=== PATIENT | male | born 1955 | race Caucasian/White ===

== ENCOUNTER 2018-09-25 07:59 | Outpatient (CLI) | payer OTHER, SELFPAY ==
[2018-09-25 09:17] LABS: Anion Gap 8.8 mmol/L (3-11); BUN 19 mg/dL (7-18); CO2 28.2 mmol/L (21.0-32.0); CREATININE 1.13 mg/dL (0.70-1.30); Calcium 9.5 mg/dL (8.5-10.1); Chloride 103 mmol/L (98-107); Glucose 110 mg/dL (70-100); Potassium 4.1 mmol/L (3.5-5.1); Sodium 140 mmol/L (136-145)
== END 2018-09-25 08:19 ==
PROVIDERS: PCP Family Medicine; Visit Provider Family Medicine
DX: I10 Essential (primary) hypertension (principal)
CPT/HCPCS: 36415; 80048

== ENCOUNTER 2019-11-24 10:49 | Outpatient (CLI) | payer MEDICARE, OTHER, SELFPAY ==
--- NOTE | 2019-11-24 13:30 | DI.RAD_ITS ---
EXAM: XR KNEE LT 3V AP,LAT,QING CLINICAL HISTORY: left knee pain, M25.562. TECHNIQUE: 2D digital imaging was performed. COMPARISON: No exams were available for comparison FINDINGS: There is marked narrowing of the medial femoral tibial joint and mild narrowing of the patellofemoral joint marginal osteophytes are seen in all 3 joint compartments. The bones are intact and normally mineralized. Vascular calcifications are seen in the soft tissues. The soft tissues are otherwise u nremarkable. No joint effusion is present. IMPRESSION: Marked osteoarthritis of the left knee. DATA REPOSITORY: RADIATION DOSE DELIVERED:
== END 2019-11-24 11:09 ==
PROVIDERS: PCP Nurse Practitioner; Visit Provider Family Medicine
DX: M25.562 Pain in left knee (principal); M17.12 Unilateral primary osteoarthritis, left knee
CPT/HCPCS: 73562

== ENCOUNTER 2019-12-06 01:44 | Outpatient (CLI) | payer MEDICARE, OTHER, SELFPAY ==
[2019-12-06 08:28] LABS: Anion Gap 8.6 mmol/L (3-11); BUN 21 mg/dL (7-18); CO2 28.4 mmol/L (21.0-32.0); CREATININE 1.08 mg/dL (0.70-1.30); Chloride 106 mmol/L (98-107); Glucose 104 mg/dL (74-106); Potassium 4.2 mmol/L (3.5-5.1); Sodium 143 mmol/L (136-145)
== END 2019-12-06 02:04 ==
PROVIDERS: PCP Nurse Practitioner; Visit Provider Family Medicine
DX: I10 Essential (primary) hypertension (principal)
CPT/HCPCS: 36415; 80048

== ENCOUNTER → 2019-12-23 10:28 | Outpatient (BNVA) | payer MEDICARE, OTHER, SELFPAY | PROVIDERS: PCP Nurse Practitioner; Referring Provider Nurse Practitioner; Visit Provider Student in an Organized Health Care Education/Training Program | DX: M25.562 Pain in left knee (principal); M17.12 Unilateral primary osteoarthritis, left knee | CPT/HCPCS: 20610; 99203; J1040 ==

== ENCOUNTER → 2020-03-16 08:59 | Outpatient (BNVA) | payer MEDICARE, OTHER, SELFPAY | PROVIDERS: PCP Nurse Practitioner; Referring Provider Nurse Practitioner; Visit Provider Student in an Organized Health Care Education/Training Program | DX: M17.12 Unilateral primary osteoarthritis, left knee (principal); I10 Essential (primary) hypertension | CPT/HCPCS: 20610; 99213; J1040 ==

== ENCOUNTER 2020-09-25 10:44 | Outpatient (CLI) | payer MEDICARE, OTHER, SELFPAY ==
--- NOTE | 2020-09-25 09:00 | DI.RAD_ITS ---
Exam(s) XR KNEE LT 1V XR STANDING ALIGNMENT EXAM: XR STANDING ALIGNMENT CLINICAL HISTORY: preop. TECHNIQUE: 2D digital imaging was performed. COMPARISON: CR XR KNEE LT 3V AP,LAT,QING from 11/24/2019 FINDINGS: Hips are well maintained. In the right knee mild degenerative changes are present with joint space n arrowing and periarticular spurring most marked in the medial joint compartment. In the left knee, t here are degenerative changes present with joint space narrowing and periarticular spurring. The fin dings are most marked in the medial femoral tibial and patellofemoral joints. The bones are intact a nd normally mineralized. There is a small joint effusion. Vascular calcifications are present. The ankles are well maintained. The right lower extremity measures 93.9 cm. The left lower extremity m easures 95.7 cm. IMPRESSION: Osteoarthritis of the knees. DATA REPOSITORY: RADIATION DOSE DELIVERED:
== END 2020-09-25 10:45 | disposition home or self-care (01) ==
LOC: DIORS 10:44
PROVIDERS: PCP Nurse Practitioner; Referring Provider Nurse Practitioner; Visit Provider Student in an Organized Health Care Education/Training Program
DX: M17.12 Unilateral primary osteoarthritis, left knee (principal)
CPT/HCPCS: 99213; 73560; 77073

== ENCOUNTER → 2020-10-05 09:58 | Outpatient (BNVA) | payer MEDICARE, OTHER, SELFPAY | PROVIDERS: PCP Nurse Practitioner; Referring Provider Nurse Practitioner; Visit Provider Physician Assistant | DX: Z01.818 Encounter for other preprocedural examination (principal); M17.12 Unilateral primary osteoarthritis, left knee ==

== ENCOUNTER 2020-10-30 03:58 | Outpatient (CLI) | payer MEDICARE, OTHER, SELFPAY ==
[2020-10-30 11:04] LABS: Source Nasal/Nares
[2020-10-30 15:09] LABS: COVID-19 PCR Negative (Negative)
== END 2020-10-30 03:59 | disposition home or self-care (01) ==
LOC: LBO 03:58
PROVIDERS: PCP Nurse Practitioner; Visit Provider Student in an Organized Health Care Education/Training Program
DX: Z20.822 Contact with and (suspected) exposure to COVID-19 (principal); Z01.818 Encounter for other preprocedural examination
CPT/HCPCS: 87635

== ENCOUNTER 2020-10-30 04:39 | Outpatient (CLI) | payer MEDICARE, OTHER, SELFPAY ==
[2020-10-30 09:54] LABS: HCT 44.4 % (40.0-50.0); HGB 15.2 g/dL (13.5-17.5); MCH 32.2 pg (27.0-33.0); MCHC 34.2 % (32.0-36.0); MCV 94.1 fL (80-95); MPV 10.3 fL (8.0-11.0); Platelet Count 202 10^3/uL (130-400); RBC 4.72 10^6/uL (4.36-5.78); RDW 12.2 % (11.8-14.1); RDW-SD 42.5 fL; WBC 8.05 10^3/uL (4.4-10.8)
[2020-10-30 09:57] LABS: Hemoglobin A1C 5.7 % (<5.7)
[2020-10-30 10:43] LABS: Anion Gap 9.3 mmol/L (3-11); BUN 23 mg/dL (7-18); CO2 29.7 mmol/L (21.0-32.0); CREATININE 1.1 mg/dL (0.70-1.30); Calcium 9.2 mg/dL (8.5-10.1); Chloride 105 mmol/L (98-107); Glucose 137 mg/dL (74-106); Potassium 3.6 mmol/L (3.5-5.1); Sodium 144 mmol/L (136-145)
== END 2020-10-30 04:40 | disposition home or self-care (01) ==
LOC: LBO 04:39
PROVIDERS: PCP Nurse Practitioner; Visit Provider Student in an Organized Health Care Education/Training Program
DX: M25.562 Pain in left knee (principal); M17.12 Unilateral primary osteoarthritis, left knee; R73.09 Other abnormal glucose; Z01.818 Encounter for other preprocedural examination; Z01.812 Encounter for preprocedural laboratory examination
CPT/HCPCS: 36415; 80048; 85027; 87635; 83036

== ENCOUNTER 2020-11-01 11:04 | Observation (INO) | payer MEDICARE, OTHER, SELFPAY ==
[2020-11-01] VITALS (17 sets, daily range): BP systolic 99–146; BP diastolic 39–79; PULSE 66–81; RESP 16–24; TEMP 36.1–37.5; O2SAT 89–94; BMI 49.1
--- NOTE | 2020-11-01 | DI.RAD_ITS ---
Exam(s) XR PORTABLE CHEST AP EXAM: XR PORTABLE CHEST AP CLINICAL HISTORY: potential aspiration. TECHNIQUE: 2D digital imaging was performed. COMPARISON: No exams were available for comparison FINDINGS: MEDIASTINUM: Normal. HEART: Normal. PULMONARY VASCULATURE: Normal. LUNGS: Question of increased lung markings in the left lung base. This may represent atelectasis or pneumonia. The lungs are otherwise clear. PLEURAL SPACE: No pleural effusion or pneumothorax. BONE:Within normal limits for the patient's age. OTHER FINDINGS:Normal. IMPRESSION: Question of a left basilar infiltrate. DATA REPOSITORY: RADIATION DOSE DELIVERED:
[2020-11-01] MEDS: Gabapentin 300 MG CAP PO ×2 (06:25→22:02)
[2020-11-01] MEDS: Acetaminophen 500 MG TAB 1000 MG PO ×3 (06:25→19:43)
[2020-11-01] MEDS: Celecoxib 200 MG CAP 400 MG PO (06:25)
[2020-11-01] MEDS: Lactated Ringers 1,000 ML 80 ML IV ×2 (06:26→11:05)
--- NOTE | 2020-11-01 06:51 | W.ANESPRE ---
General Info Date of Service Date Performed: 11/01/20 Height: 5 ft 11 in Weight: 160 kg Body Mass Index (BMI): 49.1 Surgical Procedure: Operation Date: 11/01/20 07:40 Proposed Procedures Side Surgeon p Knee Total Arthroplasty Left Emanuel Dang MD Meds Allergies and Home Medications Allergies Allergy/AdvReac Type Severity Reaction Status Date / Time No Known Allergies Allergy Verified 11/01/20 05:50 Home Medication Medication Instructions Recorded tamsulosin 0.4 mg capsule 0.8 mg PO HS #180 tab-cap 12/06/19 nystatin 100,000 unit/gram topical 1 applic TOPICAL BID #60 g 03/06/20 powder triamcinolone acetonide 0.1 % 1 applic TOPICAL BID #453.6 g 03/16/20 topical cream chlorthalidone 25 mg tablet 25 mg PO DAILY #90 tab-cap 06/08/20 losartan 100 mg tablet 100 mg PO DAILY #90 tab-cap 06/08/20 nifedipine 30 mg tablet,extended 30 mg PO DAILY #90 tab-cap 06/08/20 release 24 hr simvastatin 40 mg tablet 40 mg PO DAILY #90 tab-cap 06/08/20 Current Visit Medications: Current Medications Generic Name Dose Route Start Last Admin Trade Name Freq PRN Reason Stop Dose Admin Acetaminophen 1,000 mg 11/01/20 06:00 11/01/20 06:25 Acetaminophen 500 Mg Tab PO 11/01/20 16:00 1,000 mg PREOP ESAU Administration Celecoxib 400 mg 11/01/20 06:00 11/01/20 06:25 Celecoxib 200 Mg Cap PO 11/01/20 16:00 400 mg PREOP ESAU Administration Gabapentin 300 mg 11/01/20 06:00 11/01/20 06:25 Gabapentin 300 Mg Cap PO 11/01/20 16:00 300 mg PREOP ESAU Administration Tranexamic Acid 1,000 mg/ 60 mls @ 360 mls/hr 11/01/20 06:00 Sodium Chloride IVPB 11/01/20 16:00 PREOP ESAU Tranexamic Acid 1,000 mg/ 60 mls @ 360 mls/hr 11/01/20 06:00 Sodium Chloride IVPB 11/01/20 16:00 DIRECTED ESAU Ringer's Solution 1,000 mls @ 80 mls/hr 11/01/20 06:00 11/01/20 06:26 IV 11/30/20 23:59 80 mls/hr INFUSION ESAU Administration Cefazolin Sodium 3,000 mg/ 100 mls @ 200 mls/hr 11/01/20 06:00 Sodium Chloride IVPB 11/01/20 23:59 PREOP ESAU IV Miscellaneous Supplies 1 each 11/01/20 06:00 Iv Access IV 11/30/20 23:59 DIRECTED ESAU Sodium Chloride 0 ml 11/01/20 06:00 Normal Saline Flush 10 Ml Syr IV 11/30/20 23:59 PRN PRN Sodium Chloride 0 ml 11/01/20 06:00 Normal Saline 10 Ml Vial IJ 11/30/20 23:59 DIRECTED PRN Sterile Water 0 ml 11/01/20 06:00 Water,Injection,Sterile 10 Ml Vial IJ 11/30/20 23:59 DIRECTED PRN PFSH Active Problems Active Problems: Problem Status Onset Code Left knee DJD M17.12 Polyp of colon K63.5 Psoriasis L40.9 Morbid obesity E66.01 Hypercholesterolemia E78.00 Essential hypertension I10 BPH w urinary obs/LUTS 10/24/17 N40.1, N13.8 Medical History Medical History HTN (hypertension) Left knee DJD Injection: 12/23/19, 03/16/2020 Obesity Surgical History Surgical History Cholecystectomy (08/28/07) Colonoscopy - MAC (09/23/16) 07/22/08 05/05/13 Excision, Lipoma (07/12/09) deep left gluteus Repair of umbilical hernia 08/28/2007 & 09/04/2009 Tobacco Smoking/Tobacco Use Status: Never Second hand exposure: No Alcohol Alcohol Intake: current Alcohol intake frequency: a few times a week Substance Use Substance use: Never Substance use type: does not use Vital Signs and Lab Results Vital Signs Most Recent Vital Signs in EMR: Most Recent Vital Signs Temp Pulse Resp BP Pulse Ox 36.7 C 66 18 125/68 94 11/01/20 06:00 11/01/20 06:00 11/01/20 06:00 11/01/20 06:00 11/01/20 06:00 Lab Results Blood Type / Crossmatch: No Data to Display Complete Blood Count: White Blood Count 8.05 10^3/uL (4.4-10.8) 10/30/20 09:40 10/30/20 Red Blood Count 4.72 10^6/uL (4.36-5.78) 10/30/20 09:40 10/30/20 Hemoglobin 15.2 g/dL (13.5-17.5) 10/30/20 09:40 10/30/20 Hematocrit 44.4 % (40.0-50.0) 10/30/20 09:40 10/30/20 Platelet Count 202 10^3/uL (130-400) 10/30/20 09:40 10/30/20 Complete Metabolic Panel: Sodium Level 144 mmol/L (136-145) 10/30/20 09:40 10/30/20 Potassium Level 3.6 mmol/L (3.5-5.1) 10/30/20 09:40 10/30/20 Chloride Level 105 mmol/L (98-107) 10/30/20 09:40 10/30/20 Carbon Dioxide Level 29.7 mmol/L (21.0-32.0) 10/30/20 09:40 10/30/20 Blood Urea Nitrogen 23 mg/dL (7-18) H 10/30/20 09:40 10/30/20 Creatinine 1.1 mg/dL (0.70-1.30) 10/30/20 09:40 10/30/20 Calcium Level 9.2 mg/dL (8.5-10.1) 10/30/20 09:40 10/30/20 Glucose Level 137 mg/dL (74-106) H 10/30/20 09:40 10/30/20 Hemoglobin A1c 5.7 % (<5.7) 10/30/20 09:40 10/30/20 Liver Function Panel: No Data to Display Coagulation Panel: No Data to Display Cardiac Panel: No Data to Display Arterial Blood Gas: No Data to Display Venous Blood Gas: No Data to Display Pancreas Panel: No Data to Display Thyroid Panel: No Data to Display Infectious Disease: Coronavirus (COVID-19)(PCR) Negative (Negative) 10/30/20 09:55 10/30/20 Coronavirus 2019 Source Nasal/nares 10/30/20 09:55 10/30/20 Blood Cultures: No Data to Display Toxicology Panel: No Data to Display Anesthesia Assessment and Plan Anesthesia History Personal History: No History of Anesthesia Complications Family History: No Family History of Anesthesia Complications Exercise Tolerance Exercise Tolerance: Metabolic Equivalents>4 Pertinent Negatives Pertinent Negatives: No Symptoms of GERD, No Major Cardiovascular Symptoms or Complaints, No Major Pulmonary Symptoms or Complaints and No History of CVA/TIA Cardiac & Pulmonary Exam Cardiac Exam: Normal S1/S2 Heart Sounds Pulmonary Exam: Clear Bilateral Breath Sounds Airway Exam Known Difficult Airway: No Mallampati Class: 2 Mouth Opening: Normal (> 3cm) Thyromental Distance: Greater than 3 cm Neck Range of Motion: Limited ROM Neck Circumference: Thick Teeth Condition: Normal Dentition ASA Classification ASA Score: ASA 3 Emergency Case?: No NPO Status NPO Status: NPO Clears >2 hours, Solids >8 hours Anesthesia Plan Resuscitation Status: Full Code Anesthesia Technique: General Anesthesia Airway Planned: Natural Airway Monitors Used: Standard Monitors
[2020-11-01] MEDS: ceFAZolin 3,000 MG in Normal Saline 100 ML 200 MG IVPB (08:20)
--- NOTE | 2020-11-01 09:08 | W.ANESNERVE ---
Nerve Block Single Injection Procedure Date and Time Date Performed: 11/01/20 Procedure Start: 07:22 Location Where Procedure Performed Procedure Location: PACU Reason Performed: Postoperative Analgesia Requesting Provider: Alton Timeout Performed Timeout Performed: Yes Monitoring Used ECG, Blood Pressure, SpO2 and ETCO2 Sterility Sterility: Hand Hygiene, Surgical Cap, Surgical Mask, Sterile Gloves, Eye Protection and Chlorhexidine Sedation Given During Procedure Sedation Given (Indicate Dose Given): Versed IV Dose:: 2 mg Patient Mental Status Patient Mental Status: Sedate with meaningful communication Nerve Block 1st Nerve Block: Laterality: Left Block Type: Adductor Canal Needle / Catheter Used: 100mm SonoPlex II Local Anesthetic Bolus (Indicate Dose Given): Lidocaine used for local infiltration of skin, Injected in 3-5ml increments after negative blood aspiration and Bupivacaine 0.25% Dose:: 20 cc Additives (Indicate Dose Given): None Ultrasound: Sterile probe cover and gel used Ultrasound Image Saved?: Yes Nerve Stimulator: Not Used Paresthesia: None Procedure Tolerated: No Complications and Patient tolerated well Procedure Outcome: Successful Performed By: Kobe
[2020-11-01] MEDS: Bupivacaine 0.25% Pres-Free 30 ML VIAL (09:15)
[2020-11-01] MEDS: Normal Saline 20 ML VIAL (09:16)
[2020-11-01] MEDS: Ketorolac 30 MG/ML VIAL (09:16)
--- NOTE | 2020-11-01 11:04 | ROE_ITS ---
Date of service: 11/01/20 Time of Service: 10:05 Operative Note Operative Note DATE OF PROCEDURE: 11/01/20 PRE-OP DIAGNOSIS: Left Knee Osteoarthritis POST-OP DIAGNOSIS: same PROCEDURE: Left Total Knee Replacement, Super Morbidly Obese SURGEON: Emanuel Dang RESPIRATORY EQUIPMENT ASSISTANT: Cathie Weller ANESTHESIA TYPE: General LMA/ETT Refer to Anesthesia Record ESTIMATED BLOOD LOSS: 200 PATHOLOGY: none sent TOURNIQUET TIME: 0 COMPLICATIONS: Other (Difficult intubation with concern for possible aspiration. Remained stable and was extubated.) Patient was transported to: PACU Patient's condition: stable Implants: 1. Depuy Attune Cementless Cruciate Retaining Femoral Component, Size 7 2. Depuy Attune Cementless Rotating Platform Tibial Component, Size 6 3. Depuy Attune 7x6mm CR/RP Poly 4. Depuy Attune Patellar Component, Size 38 Indications: I have seen Frederic in clinic for symptoms of knee arthritis, confirmed with radiographic findings. Frederic has exhausted nonoperative methods and was having significant limitations in daily function and desired better function and less pain. I discussed the technical details of a knee replacement. I explained the risks of the procedure to include, but not limited to, bleeding, infection, pain, stiffness, fracture, damage to nerves and vessels, damage to muscles and tendons, loosening, need for repeat procedure, blood clot and cardiopulmonary demise. Despite these risks, Frederic elected to proceed. Findings: There was significant signs of arthritis throughout the knee. Procedure Description: Frederic was greeted in the preoperative holding area where the correct side was identified and marked. The consent was reviewed with the patient and signed. The history and physical was updated. All questions were answered. Preoperative medications were administered: Acetaminophen 1000mg, Celebrex 400mg, and Gabapentin 300mg. An adductor canal block was then administered by the anesthesia team in the PACU. Frederic was taken back to the operating room. A spinal anesthestic was attempted but unsuccessful. The patient was placed into the supine position on the operating room table. A general anesthetic was administered. However, there was difficulty with the seating of the LMA so he was switched to an ETT. HOwever, during this process there was some coughing and a concern for potential aspiration with a drop in oxygen saturation. Successful video-assisted intubation was completed and oxygen levels and vitlas remained stable. A nonsterile tourniquet was placed high onto the leg but not used. Posts were placed for positioning during the procedure. All bony prominences were well padded. Prophylactic antibiotics in the form of Cefazolin were administered. 1g of Tranxemic Acid was given intravenously within 30 minutes of incision. The left leg was then prepped with Chloraprep and draped in a standard fashion with impervious stockinette. A second prep with Chloraprep was performed prior to application of Iodine impregnated skin protection. A timeout to confirm correct identity, side and site, procedure, allergies, anesthesia, and medical concerns was performed. With the knee in some flexion, a midline incision was made overlying the knee. Full thickness skin flaps were raised once the extensor mechanism was encountered. These were raised medially and laterally. Any bleeding was controlled with electrocautery. Once the extensor mechanism was fully exposed, a medial parapatellar arthrotomy was performed in a flexed position. All bleeding from the arthrotomy and the geniculate arteries was coagulated. A medial subperiosteal peel was performed with electrocautery to the midcoronal plane. Due to the significant varus deformity the entire medial tibial plateau was exposed. The fat pad was removed while keeping the patellar tendon protected. The anterior distal femur synovium was removed for later visualization. The ACL and PCL were resected and the anterior horn of the lateral meniscus was transected. The knee was then flexed with the patella everted. Large osteophytes from the tibia were removed. Large osteophytes from the femur were removed. Using a step drill, and based on preoperative templating, the femoral canal was entered. This was done with a step drill without any difficulty. The intramedullary distal femoral cut guide was inserted, set to a 5 degree valgus cut and 9mm cut thickness. The distal femoral cut guide was then held in position and pinned. With the soft tissues protected, the distal cut was performed. This was passed over a few times to ensure a planar cut. I then turned attention to the tibia. The extramedullary guide was placed onto the leg. The distal aspect was slid medial to adjust for position of center of ankle and stay in line with shaft of the tibia. Approximately 3-5 degrees of posterior slope was kept in the proximal cutting guide. The center of the guide was aligned with the PCL. The stylus was used to assess cut thickness. The medial side, most involved side, was set for a 3mm cut, corresponding to 8mm laterally. This was then held in position and pinned into place with 2 additional pins and a cross pin for stability. The medial and lateral collateral ligaments were protected and the cut was performed. With this completed, it was assessed and noted to be of appropriate dimensions. The guide was removed. A spacer block was inserted and the knee was brought into extension. The 6mm spacer block provided full extension, without hyperextension and with stability of both the medial and lateral collateral ligaments was assessed. The pins from the femur and the tibia were then removed. The distal femur was then sized. The anterior stylus was placed onto the lateral ridge of the anterior femur. This indicated a size 7 femur. The external rotation of the guide was adjusted to 3 degrees to match the epicondylar axis, perpendicular to Mcintire?s line. The 4-in-1 cutting guide was the placed. The posterior medial femur cut was evaluated and appeared of good thickness. The spacer block was inserted underneath the cutting guide and stability was confirmed in 90 degrees of flexion. An kassie wing was used to confirm appropriate position of the anterior cut to avoid notching. This cutting guide was ensured to be flush on the cut surface and then pinned into place with headed pins. While protecting the soft tissues, quad tendon, and collateral ligaments, the anterior and posterior cuts were performed with a saw. The central two pins were removed and the posterior and anterior chamfers were cut next. The notch-cutting guide was placed. This was pinned to lateralize the femoral component as much as possible while keeping it flush on the cut surface. This was then pinned into position. A reciprocating saw was used to make the notch cut. A rasp smoothed the cut surfaces. The medial and lateral menisci were removed. A trial femoral component was then inserted, impacted down to the cut surfaces, and the lug holes were drilled. A provisional trial tibial component was placed and the knee was brought through range of motion. There was noted to be excellent extension and flexion. There was no significant instability. The patella was tracking without thumbs. A size 6mm polyethylene component provided the best range of motion and stability with less than 2mm gapping with medial and lateral stress and full extension without significant hyperextension. The tibial cut surface was fully exposed. The tibia was then sized as a 6. The tibia had been previously marked during trialing to correspond to the center of the tibial component to help with rotation. The trial was aligned to this edita, approximately rotated to the medial 1/3rd of the tibial tubercle. The trial was pinned into place. The tibia was prepared with a reamer and a keel punch and lug holes. The knee was then brought into extension and the patella was measured as 26mm. Using the patellar clamp and cut guide, this was resected to a flat surface with at least 13mm of thickness remaining. The size 38 patella fit the best. This was oriented and then clamped into position. The lugs were drilled. The trial components were removed. The final components were opened on the back table. The periosteal and capsular tissues, especially posteriorly, around the knee were then systematically injected with a periarticular cocktail consisting of 50cc 0.25% Marcaine, 30mg Ketorolac, 20cc of Exparal and 50cc of injectable saline. The knee was thoroughly irrigated with a pulse lavage and dried. Irrisept was also used to irrigate the tissues. On the back table, with the implants opened, the cement was mixed. One batch of high viscosity cement was prepared with vacuum assistance. After the cement was ready a small amount was placed on the cut surface of the patella and the patellar button was clamped into position and held. While the cement was hardening, the cementless knee components were placed. Starting with the tibial component, the tibia was subluxed anteriorly and the lug holes of the component were lined up. The tibia was then impacted with an impactor and mallet until the tibial component was in contact with the tibia. The final polyethylene component was inserted. Then, the femoral component was inserted. The lug holes were aligned and the component was impacted into position. The knee was irrigated with Irrisept chlorhexadine solution. This was allowed to sit in the knee for 3 minutes. After the cement had finally cured, approximately 15min, the clamp was removed from the patella and the knee was taken through range of motion. The patella was tracking with a no-thumbs technique. The capsule was then reapproximated with a No. 1 Vicryl at multiple locations. The capsule was finally closed with a No. 2 Stratafix, barbed suture. The second dosing of 1g TXA was started. Deep tissues were then reapproximated with 0 Vicryl and 2-0 Vicryl. The skin was closed with a running 3-0 Monocryl in a subcuticular fashion. This was reinforced with skin glue. A Mepilex silver dressing was applied along with a [id number] [place] wrap. A CryoCuff was applied. Frederic was extubated successfully. He was transferred to the hospital bed without difficulty an suffering no apparent surgical complication. Frederic has a good prognosis but he will be admitted to the hospital for observation. He will likely require some high-flow oxygen at first as we continue to monitor his breathing and oxygen status. Physical therapy will start today and without restrictions, weight-bearing as tolerated. Aspirin 81mg BID will be used for DVT prophylaxis.
--- NOTE | 2020-11-01 13:50 | PT.INIE ---
Date of service: 11/01/20 Time of Service: 13:50 PT Notes Visit Reasons: LEFT TKA Physical Therapy Inpatient Initial Evaluation Date: 11/01/2020 Referring Doctor: JOANNA Perry PT Orders: PT CONSULT: Status post Ortho surgery Precautions: Fall. Standard. WBAT on left LE with AD. Patient Profile/Admitting Diagnosis: Frederic is a 65-year-old male with continued degenerative joint disease of the left knee and is status post left total knee arthroplasty on postoperative day 0. PMHX: Medical History (Updated 10/05/20 @ 10:20 by Preeti Marrero) HTN (hypertension) Left knee DJD Injection: 12/23/19, 03/16/2020 Obesity Surgical History Cholecystectomy (08/28/07) Colonoscopy - MAC (09/23/16) 07/22/08 05/05/13 Excision, Lipoma (07/12/09) deep left gluteus Repair of umbilical hernia 08/28/2007 & 09/04/2009 Social History/Home Situation: Equipment Owned/DME: Lives with in a private home with a ramp to enter. Independent with all ADLs without AD. Subjective: Patient reports 2/10 pain in the left knee at rest and with movement. Denies headache, chest pain, and dizziness throughout session. Objective: General Observation: Supine in bed. Cryo/Cuff on left knee. Oliver wraps on left knee. IV in right UE. 2 Mental Status: Alert and oriented as to person, place, time, and purpose. Able to pay attention, focus, and respond appropriately. Pain: /10 in left knee Vital Signs: Saturating at 94% on 4 L of oxygen ROM: Right Upper Extremity: Shoulder Flexion WFL. Shoulder abduction WFL. Shoulder ER/IR WFL. Elbow flexion WFL. Forearm pronation/supination WFL. Wrist flexion WFL. Opening and closing of hand WFL. Left Upper Extremity: Shoulder Flexion WFL. Shoulder abduction WFL. Shoulder ER/IR WFL. Elbow flexion WFL. Forearm pronation/supination WFL. Wrist flexion WFL. Opening and closing of hand WFL. Right Lower Extremity: Hip flexion WFL. Hip abduction WFL. Hip ER/IR WFL. Knee flexion WFL. Knee extension. Ankle dorsiflexion/eversion WFL. Ankle plantarflexion/inversion WFL. Left Lower Extremity: Hip flexion WFL. Hip abduction WFL. Hip ER/IR WFL. Knee flexion 0 to 100 degrees. Knee extension 0. Ankle dorsiflexion WFL. Ankle plantarflexion WFL. Strength: Right Upper Extremity: Shoulder flexors 5/5. Shoulder abductors 5/5. Shoulder ER 5/5. Shoulder IR 5/5. Forearm pronators 5/5. Forearm supinators 5/5. Elbow flexors 5/5. Elbow extensors 5/5. Metal Control Coordinator strong. Left Upper Extremity: Shoulder flexors 5/5. Shoulder abductors 5/5. Shoulder ER 5/5/ Shoulder IR 5/5. Forearm pronators 5/5. Forearm supinators 5/5. Elbow flexors 5/5. Elbow extensors 5/5. Metal Control Coordinator strong. Right Lower Extremity: Hip flexors 5/5. Hip abductors 5/5. Hip external rotators 5/5. Hip internal rotators 5/5. Knee flexors 5/5. Knee extensors 5/5. Ankle dorsiflexors/evertors 5/5. Ankle plantarflexors/invertors 5/5. Left Lower Extremity: Hip flexors 4/5. Hip abductors 4/5. Hip external rotators 4/5. Hip internal rotators 4/5. Knee flexors 3-/5. Knee extensors 4/5. Ankle dorsiflexors/evertors 5/5. Ankle plantarflexors/invertors 5/5. Bed Mobility/Transfers: Supine to sit standby assist Sit to stand contact-guard assist Stand to sit contact-guard assist Bed to chair contact-guard assist Chair to bed contact-guard assist THERA EX: Patient perform straight leg raises with minimal knee extension lag on the left LE x10 reps without increase in pain report. Patient was educated and trained on performance of early seated exercises consisting of quadriceps setting x10, ability to discuss surgical ankle pumping x10, and seated marches x10 to to be performed at least every after 2 hours. Gait: Distance of 100 feet requiring contact-guard assist and IV pole and vital signs machine management by DIAMOND Frances, providing wheelchair follow for safety. Izabela decreased. Step height left decreased. Step length left decreased. Step to gait pattern. Denies headache, chest pain, and dizziness throughout activity. No SOB. No LOB. No desaturation episode with 4 L of oxygen/min via NC Balance: Static Sitting: Normal Dynamic Sitting: Normal Static Standing: Fair Dynamic Standing: Fair Special Tests: Mobility Limitations Standardized Measure [facility] AM-PAC 6 clicks Basic Mobility Inpatient Short Form: Raw Score: 20 CMS Score: 36% deficit Informed Consent/Education: Patient was instructed in purpose of PT consult and plan of care. Agreeable to proceed with established PT POC to achieve personal goals. Assessment: Per orthopedic surgeon patient aspiration intraoperatively and required oxygen supplementation of 4 L/min via NC to augment breathing function at this time. Good quad activation. Able to achieve 0 degrees of extension but only 90 degrees left knee flexion. Postoperative weakness limiting ability to perform step through gait pattern. Requires use of a front wheeled walker for safety. We will have the support of at home. Patient presents with clinical signs and symptoms consistent with current/admitting diagnoses that have resulted to mobility limitations, gait instability, generalized weakness, and impairment of motor control as demonstrated by the following impairment level findings: 1. Decreased strength to left LE major muscle groups 2. Impaired standing balance 3. Impaired activity tolerance 4. Limitation of joint range of motion in left knee flexion Impairments are contributing to the following functional limitations: 1. Inability to safely ambulate without assistive device 2. Increase completion time for mobility ADL performance 3. Increased fall risk 4. Inability to negotiate steps alone safely Patient is assessed as a 43178 moderate complexity based on the following: History: 65-year-old male with past medical history as indicated above Examination: Demonstrable impairment in strength, balance, and mobility level with underlying impairments and functional limitations as exhibited above as well as deficit score of 36% utilizing the [facility] Mobility Inpatient Short Form Presentation: Evolving Decision Makin moderate complexity Goals: Goals X1 week 1. Supine-Sit independent 2. Sit-Supine independent 3. Sit-Stand independent 4. Stand-Sit independent 5. Bed-Chair independent 6. Chair-Bed independent 7. Independent gait on level surface with use of front wheeled walker for at least 500 feet without report of pain nor dyspnea 8. Independent with home exercise program 9. Good static and dynamic standing balance/tolerance Plan of Care/Treatment Plan: 1-2x/day, 7 days/week x 1 week. Plan of care has been reviewed with the [employer] ASSISTANT providing the service under Physical Therapy direction. Initiate Physical Therapy intervention for pain management as needed, strengthening, bed mobility, transfers, gait, stairs, balance training, and use of assistive device. DISCHARGE RECOMMENDATIONS: Home when medically cleared by orthopedic surgeon. Will benefit from using higher walker x1 to the times that reduce fall risk at home. Outpatient PT services to facilitate return to community ambulation without an assistive device. TREATMENT CODE/TIME: 52644 x 20 minutes, 98566 x 25 minutes beginning at 13:50 PM. Thank you for the opportunity to participate in the care of this patient. Yaneth Johnson PT, DPT, CLT [facility] [place], [place]
--- NOTE | 2020-11-01 14:30 | NUR.NOTE ---
Nursing Note: 1213: pt arrives to room 230 via stretcher from PACU. pt moved via hover mat from stretcher to bed. pt alert/oriented x 3. pt on 4L o2 via NC at this time. no contreras in place at this time. cryo cuff in place. p oriented to call cross/tv remote. see emar for further information.
[2020-11-01] MEDS: ceFAZolin 1 GM/50 ML BAG IVPB ×2 (14:44→22:04)
[2020-11-01 17:55] LABS: Bilirubin Negative (Negative); Blood Negative (Negative); Clarity Clear (Clear); Glucose Negative (Negative); Ketones Negative (Negative); Leukocyte Esterase Negative (Negative); Nitrite Negative (Negative); Specific Gravity >= 1.030 (1.005-1.025); Urobilinogen 0.2 EU/dL (Up TO 0.2); pH 5.5 (5-8)
[2020-11-01 18:04] LABS: Bacteria Negative HPF (Negative); C & S Indicated? No; Crystals Few Amorphous HPF (Negative); Epithelial Cells Negative HPF (Negative); Mucus Heavy (Negative); RBC 0-2 HPF (0-2); WBC 0-2 HPF (0-5)
[2020-11-01] MEDS: Aspirin E.C. 81 MG TABEC PO (19:42)
[2020-11-01] MEDS: Celecoxib 200 MG CAP PO (19:42)
[2020-11-01] MEDS: Lactated Ringers 1,000 ML 1000 ML IV (19:45)
[2020-11-01] MEDS: Normal Saline Flush 10 ML SYR IV (22:03)
[2020-11-02] VITALS (11 sets, daily range): BP systolic 129–142; BP diastolic 75–79; PULSE 79–87; RESP 16–20; TEMP 36.5–36.6; O2SAT 90–94
[2020-11-02] MEDS: ceFAZolin 1 GM/50 ML BAG IVPB (05:31)
[2020-11-02] MEDS: Normal Saline Flush 10 ML SYR IV (05:32)
[2020-11-02] MEDS: Docusate Sodium 100 MG CAP PO (08:13)
[2020-11-02] MEDS: oxyCODONE 5 MG TAB PO (08:13)
[2020-11-02] MEDS: Pantoprazole 40 MG TABCR PO (08:13)
[2020-11-02] MEDS: Celecoxib 200 MG CAP PO (08:13)
[2020-11-02] MEDS: Acetaminophen 500 MG TAB 1000 MG PO (08:13)
[2020-11-02] MEDS: Aspirin E.C. 81 MG TABEC PO (08:13)
--- NOTE | 2020-11-02 08:20 | W.PM.PROGNOT ---
Date of Service Date of service: 11/02/20 Time of Service: 07:20 Assessment and Plan Assessment and plan (1) Left knee DJD: Status: Chronic Assessment and plan: Frederic is a 65-year-old who is status post left knee replacement. The surgery went well yesterday except for concern of aspiration event. As for the knee, he is able to ambulate with a walker. He denies significant pain. He is happy with the feeling of the knee thus far and has no apparent surgical complications. He should be able to discharge to home with outpatient physical therapy for the left knee with the regular discharge instructions. Aspirin 81 mg twice daily for DVT prophylaxis. Qualifiers: Osteoarthritis type: primary Qualified Code(s): M17.12 - Unilateral primary osteoarthritis, left knee (2) Pneumonitis due to aspiration during anesthesia: Status: Acute Assessment and plan: Presumed aspiration event during anesthesia with drop in oxygenation saturations. He has been stable. He has required no supportive measures except for incentive spirometry and oxygen up to 4 L. He has been weaned off this morning with a goal of oxygen saturations greater than 88%. On admission prior to the surgery his highest on room air was only 94%, likely related to his size and a little pickwickian syndrome. As long as he is able to hold his oxygen saturations around that 90% edita he may discharge to home today. He has had no desaturation events and denies any respiratory symptoms even with ambulation. (3) Morbid obesity: Status: Chronic Assessment and plan: Increased complexity of the case from the respiratory status as well as the surgical status. Subjective Subjective Interval history since last seen: Frederic reports be doing well. He has had only minimal pain. He has been able to ambulate with the nursing staff. He has been watched carefully with his oxygenation and he has been able to keep saturations between 90 to 94% on 2 to 4 L of oxygen. He denies any shortness of breath. He denies any work of breathing. His pain has been controlled. He has tolerated regular diet and is voiding spontaneously. There was some concern about the cloudiness of his urine yesterday and so a urinalysis was submitted which is relatively benign. Exam Const General: cooperative, comfortable and no acute distress Nutritional Appearance: obese Resp Effort & Inspection: normal respiratory effort and able to speak in complete sentences Extrem Other: Left lower extremity is wrapped in Oliver wrap. No drainage. He is able to straight leg raise off the bed. He endorses full sensation to the deep and superficial peroneal nerve and tibial nerve. He is able to plantarflex and dorsiflex the foot as well as extend and flex the great toe without difficulty. Foot is warm and well-perfused. Objective Last Vital Signs Temp 36.5 C 11/02/20 07:44 Pulse 87 11/02/20 07:44 Resp 20 11/02/20 07:44 BP 142/75 H 11/02/20 07:44 Pulse Ox 90 L 11/02/20 07:44 Laboratory Results - last 24 hr 11/01/20 17:15 Urine Color Yellow Urine Clarity Clear Urine pH 5.5 Ur Specific [place] >= 1.030 H Urine Protein Trace H Urine Ketones Negative Urine Blood Negative Urine Nitrite Negative Urine Bilirubin Negative Urine Urobilinogen 0.2 Ur Leukocyte Esterase Negative Urine RBC 0-2 Urine WBC 0-2 Ur Epithelial Cells Negative Urine Crystals Few amorphous Urine Bacteria Negative Urine Mucus Heavy Ur Culture Indicated? No Urine Glucose Negative
--- NOTE | 2020-11-02 08:29 | DSE_ITS ---
Documented by User: JOANNA Perry 11/01/20 07:36 Date of service: 11/01/20 DS: Diagnosis Discharge Diagnosis (1) Left knee DJD: Status: Chronic Discharge Plan Disposition Patient Disposition: HOME Condition: Stable Discharge Details Reason For Visit: LEFT TKA Admit Date/Time: 11/01/20 11:04 Admit Provider: Emanuel Dang Attending Provider: Emanuel Dang Primary Care Provider: Manju Sanders Hospital Course Hospital Course: Patient was admitted to the medical/surgical floor following the procedure for o bservation. There was some difficulty with anesthetic induction and there was concern for possibility of aspiration. He did have some decreased oxygenation when this occurred and also when he was extubated requiring some oxygen. Therefore, he was admitted for oxygen monitoring and supplementation. Regular postoperative protocols were initiated and he did well. There is no surgical complication encountered. Mobilization began postoperatively. [He] was voiding spontaneously. Vitals were stable. Physical therapy worked with the patient and was cleared for discharge home. There were no reported subjective symptoms of difficulty breathing or work of breathing. No cough. He did report a hoarseness. His oxygen saturations, while in the low 90s, did not desaturate even on room air. Pain was controlled on oral regimen. Home Meds and New Rx's Prescriptions: New celecoxib [Celebrex] 200 mg capsule 200 mg PO BID Qty: 60 RF: 0 aspirin 81 mg tablet,delayed release (DR/EC) 81 mg PO BID Qty: 60 RF: 0 acetaminophen [Tylenol Extra Strength] 500 mg tablet 500 mg PO Q6H PRNQty: 90 RF: 0 gabapentin 300 mg capsule 300 mg PO QHS Qty: 14 RF: 0 oxycodone 5 mg tablet 5 mg PO Q4H PRNQty: 18 RF: 0 pantoprazole [Protonix] 40 mg tablet,delayed release (DR/EC) 40 mg PO DAILY Qty: 30 RF: 0 Continued nystatin 100,000 unit/gram powder 1 applic topical BID Qty: 60 RF: 0 tamsulosin 0.4 mg capsule 0.8 mg PO HS Qty: 180 RF: 4 triamcinolone acetonide 0.1 % cream 1 applic topical BID Qty: 453.6 RF: 1 chlorthalidone 25 mg tablet 25 mg PO DAILY Qty: 90 RF: 4 nifedipine 30 mg tablet extended release 24hr 30 mg PO DAILY Qty: 90 RF: 4 simvastatin 40 mg tablet 40 mg PO DAILY Qty: 90 RF: 4 losartan 100 mg tablet 100 mg PO DAILY Qty: 90 RF: 4 Discharge Instructions Additional Instructions: Total Knee Discharge Instructions Activity: The most important activity is to walk. You should try to take short walks a few times a day. It is important that when resting you work on keeping the knee straight. Avoid putting a pillow behind the knee as this will encourage flexion. Work on range of motion exercises as provided by Physical Therapy. - Start outpatient physical therapy within 2 weeks. - You should wear the LANRE hose on both legs for 2 weeks. You may remove these at night. You may also use any compression sock in place of the LANRE hose. Dressing: You may remove the Olievr wrap on your leg 2 days after your surgery and put on the LANRE stocking given to you from the hospital. Keep the surgical dressing (underneath the OLIVER wrap) in place for at least one week. After the first week it may be removed and replaced with light gauze and tape or nothing. The wound and dressing may get wet after 3 days but avoid soaking the dressing or otherwise it will need to be changed. Many people prefer covering the dressing with cling wrap (saran wrap) to minimize it from getting soaked. If it gets wet, just pat dry. If it starts to peel off then it will need to be changed. Medications: - You should take Tylenol and anti-inflammatory Celebrex as your primary pain control medications. If the Celebrex is too expensive or not covered, please call the office for another alternative (Advil/Ibuprofen or Naproxen/Aleve) - You have been prescribed a stronger pain medication Oxycodone for breakthrough pain, take as needed as prescribed. - You have also been prescribed a stomach acid reduction agent Pantoprozole to help reduce stomach acid and reflux. - You have been prescribed Gabapentin to take at night for restlessness and nerve pain. - You will be taking Aspirin 81mg twice a day for DVT prevention unless instructed otherwise. - If you have constipation you should take Colace or Miralax (both [id number]). It takes most people 3-4 days to have a bowel movement. Follow-up: 2 weeks If you have any acute concerns or questions, please do not hesitate to contact the office at [phone]. You may contact Dr. Dang with any questions after hours through the hospital at [phone] or on his cell phone at [phone]. Referrals: Emanuel Dang MD [ [facility] STAFF PHYSICIAN] - Activity:: Activity as Tolerated Equipment/Supplies:: Walker Diet:: As Tolerated Discharge Orders Discharge Orders: Discharge Order (Routine); Ordered 11/02/20 Ordered By: Emanuel Dang DS: Data Vitals/I&O Vitals and I&O: Vital Signs Temperature 98.1 F 11/01/20 06:00 Pulse 66 11/01/20 06:00 Pulse Rhythm Regular 11/01/20 06:00 Respiratory Rate 18 11/01/20 06:00 Respiratory Depth Normal 11/01/20 06:00 Blood Pressure 125/68 11/01/20 06:00 Pulse Oximetry 94 11/01/20 06:00 Oxygen Delivery Method Room Air 11/01/20 06:00 Oxygen Flow Rate 0 11/01/20 06:00 Intake & Output 10/31/20 10/31/20 11/01/20 11:59 23:59 11:59 Weight 352 lb 11.834 oz [facility] Medical History (Updated 11/02/20 @ 08:27 by Emanuel Dang MD) HTN (hypertension) 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 Brother No problems noted. Son No problems noted. Son No problems noted. Step daughter No problems noted. Family History Essential hypertension Hyperlipidemia Social History Smoking/Tobacco Use Status: Never Second Hand Exposure: No Smoking risk assessment performed?: Yes Alcohol Intake: current Alcohol Intake frequency: a few times a week Drug use: Never Substance use type: does not use Caregiver/Support person: No Household members: spouse Housing: house Communication Needs: Corrective Lenses Do you need help understanding health information?: Never Pets and animals: No Sexually active: Yes Do you think of yourself as: straight/heterosexual Current gender identity: male What is your relationship status?: How often do you talk on the phone with friends or family?: twice per week How often do you get together with friends or relatives?: once per week How often do you attend yazdanism or mandaen services?: 4 or more times per year Do you belong to any clubs or organized social groups?: no Panel score (0-1 are the most socially isolated patients): 3 What type of physical activity do you participate in: walking Duration: 15-30 minutes/day Frequency: 1-2 times per week Kalyani/Restorationist: Cheondoism Special kalyani needs: No Seatbelt use: sometimes Drive intox or ride w/intox catering driver: No Do you feel safe at home: Yes Do you feel safe in your relationship?: Yes Documented by User: Emanuel Dang MD 11/02/20 08:29 Date of service: 11/02/20 Time of Service: 08:26 DS: Diagnosis Discharge Diagnosis (1) Left knee DJD: Status: Chronic (2) Pneumonitis due to aspiration during anesthesia: Status: Acute Discharge Plan Disposition Patient Disposition: HOME Condition: Stable Discharge Details Reason For Visit: LEFT TKA Admit Date/Time: 11/01/20 11:04 Admit Provider: Emanuel Dang Attending Provider: Emanuel Dang [facility] Hospital Course: Patient was admitted to the medical/surgical floor following the procedure for observation. There was some difficulty with anesthetic induction and there was concern for possibility of aspiration. He did have some decreased oxygenation when this occurred and also when he was extubated requiring some oxygen. Therefore, he was admitted for oxygen monitoring and supplementation. Regular postoperative protocols were initiated and he did well. There is no surgical complication encountered. Mobilization began postoperatively. [He] was voiding spontaneously. Vitals were stable. Physical therapy worked with the patient and was cleared for discharge home. There were no reported subjective symptoms of difficulty breathing or work of breathing. No cough. He did report a hoarseness. His oxygen saturations, while in the low 90s, did not desaturate even on room air. Pain was controlled on oral regimen. Home Meds and New Rx's Prescriptions: New celecoxib [Celebrex] 200 mg capsule 200 mg PO BID Qty: 60 RF: 0 aspirin 81 mg tablet,delayed release (DR/EC) 81 mg PO BID Qty: 60 RF: 0 acetaminophen [Tylenol Extra Strength] 500 mg tablet 500 mg PO Q6H PRNQty: 90 RF: 0 gabapentin 300 mg capsule 300 mg PO QHS Qty: 14 RF: 0 oxycodone 5 mg tablet 5 mg PO Q4H PRNQty: 18 RF: 0 pantoprazole [Protonix] 40 mg tablet,delayed release (DR/EC) 40 mg PO DAILY Qty: 30 RF: 0 Continued nystatin 100,000 unit/gram powder 1 applic topical BID Qty: 60 RF: 0 tamsulosin 0.4 mg capsule 0.8 mg PO HS Qty: 180 RF: 4 triamcinolone acetonide 0.1 % cream 1 applic topical BID Qty: 453.6 RF: 1 chlorthalidone 25 mg tablet 25 mg PO DAILY Qty: 90 RF: 4 nifedipine 30 mg tablet extended release 24hr 30 mg PO DAILY Qty: 90 RF: 4 simvastatin 40 mg tablet 40 mg PO DAILY Qty: 90 RF: 4 losartan 100 mg tablet 100 mg PO DAILY Qty: 90 RF: 4 Discharge Instructions Additional Instructions: Total Knee Discharge Instructions Activity: The most important activity is to walk. You should try to take short walks a few times a day. It is important that when resting you work on keeping the knee straight. Avoid putting a pillow behind the knee as this will encourage flexion. Work on range of motion exercises as provided by Physical Therapy. - Start outpatient physical therapy within 2 weeks. - You should wear the LANRE hose on both legs for 2 weeks. You may remove these at night. You may also use any compression sock in place of the LANRE hose. Dressing: You may remove the Oliver wrap on your leg 2 days after your surgery and put on the LANRE stocking given to you from the hospital. Keep the surgical dres sing (underneath the OLIVER wrap) in place for at least one week. After the first week it may be removed and replaced with light gauze and tape or nothing. The wound and dressing may get wet after 3 days but avoid soaking the dressing or otherwise it will need to be changed. Many people prefer covering the dressing with cling wrap (saran wrap) to minimize it from getting soaked. If it gets wet, just pat dry. If it starts to peel off then it will need to be changed. Medications: - You should take Tylenol and anti-inflammatory Celebrex as your primary pain control medications. If the Celebrex is too expensive or not covered, please call the office for another alternative (Advil/Ibuprofen or Naproxen/Aleve) - You have been prescribed a stronger pain medication Oxycodone for breakthrough pain, take as needed as prescribed. - You have also been prescribed a stomach acid reduction agent Pantoprozole to help reduce stomach acid and reflux. - You have been prescribed Gabapentin to take at night for restlessness and nerve pain. - You will be taking Aspirin 81mg twice a day for DVT prevention unless instructed otherwise. - If you have constipation you should take Colace or Miralax (both [id number]). It takes most people 3-4 days to have a bowel movement. Follow-up: 2 weeks If you have any acute concerns or questions, please do not hesitate to contact the office at [phone]. You may contact Dr. Dang with any questions after hours through the hospital at [phone] or on his cell phone at [phone]. Referrals: Emanuel Dang MD [ [facility] STAFF PHYSICIAN] - Activity:: Activity as Tolerated Equipment/Supplies:: Walker Diet:: As Tolerated Discharge Orders Discharge Orders: Discharge Order (Routine); Ordered 11/02/20 Ordered By: Emanuel Dang DS: Summary Time Spent with Patient providing and/or coordinating discharge services: Less than 30 minutes Status at Discharge Functional status at discharge: uses cane/walker Overall status at discharge: patient is progressing back to baseline Mental Status: mental status grossly normal Speech and Movement: speech and movement normal Mood: congruent mood Affect: normal affect Exam Psych Mental Status: mental status grossly normal Speech and Movement: speech and movement normal Mood: congruent mood Affect: normal affect [facility] Medical History (Updated 11/02/20 @ 08:27 by Emanuel Dang MD) HTN (hypertension) 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 Brother No problems noted. Son No problems noted. Son No problems noted. Step daughter No problems noted. Family History Essential hypertension Hyperlipidemia Social History Smoking/Tobacco Use Status: Never Second Hand Exposure: No Smoking risk assessment performed?: Yes Alcohol Intake: current Alcohol Intake frequency: a few times a week Drug use: Never Substance use type: does not use Caregiver/Support person: No Household members: spouse Housing: house Communication Needs: Corrective Lenses Do you need help understanding health information?: Never Pets and animals: No Sexually active: Yes Do you think of yourself as: straight/heterosexual Current gender identity: male What is your relationship status?: How often do you talk on the phone with friends or family?: twice per week How often do you get together with friends or relatives?: once per week How often do you attend yazdanism or mandaen services?: 4 or more times per year Do you belong to any clubs or organized social groups?: no Panel score (0-1 are the most socially isolated patients): 3 What type of physical activity do you participate in: walking Duration: 15-30 minutes/day Frequency: 1-2 times per week Kalyani/Restorationist: Cheondoism Special kalyani needs: No Seatbelt use: sometimes Drive intox or ride w/intox catering driver: No Do you feel safe at home: Yes Do you feel safe in your relationship?: Yes
--- NOTE | 2020-11-02 08:50 | RESPIRATORY ---
Pt has been on room air staying above 88%, walked with PT and has maintained Spo2 > 90
--- NOTE | 2020-11-02 09:16 | PT.INTREAT ---
Date of service: 11/02/20 Time of Service: 08:30 PT Notes Visit Reasons: LEFT TKA Inpatient Physical Therapy Treatment Note [facility] Date: 11/02/2020 PRECAUTIONS: Fall, WBAT L SUBJECTIVE: Remy is pleasant and agreeable to participating in PT. He states that he is feeling good today and feels ready to discharge to home. OBJECTIVE: Patient was issued FWW, set up for patient, [facility] paperwork completed and turned in to Care Management Team. PAIN: No c/o pain BED MOBILITY/TRANSFERS Sit-stand: I Stand-sit: I Bed-Chair: I Chair-bed: I GAIT Assistive Device: FWW Weight bearing: WBAT L Assist: I Distance: 300' THEREX: Patient was instructed in a LE strengthening and stabilization program, performed in a long sitting position, as per flow sheet. He refuses ice/Cryocuff at end of session. STAIRS: Up/down 3x4 and 2x6 using B rails and a step to pattern with supervision ASSESSMENT: Patient tolerated session well, without complaint of pain. He demonstrates independence with transfers and ambulation with FWW at this time. Following discussion with nursing, patient is cleared to be independent with transfers and in-room/hallway ambulation. PLAN: Patient to discharge to home later today, per surgeon. Recommend follow-up with HH PT versus outpatient PT. TREATMENT CODE/TIME: 30 minutes; 94462, [id number] (08:30)
--- NOTE | 2020-11-02 11:40 | W.ANESPOSTOP ---
Postoperative Evaluation Date, Time and Location Date Performed: 11/02/20 Time Performed: 11:41 Patient Location: Med/Surg Vital Signs Most Recent Imported Vital Signs: Most Recent Vital Signs Temp Pulse Resp BP Pulse Ox 36.5 C 87 20 142/75 H 94 11/02/20 07:44 11/02/20 07:44 11/02/20 07:44 11/02/20 07:44 11/02/20 09:00 Pain Score Most Recent Pain Score: Most Recent Pain Score Pain Level [Left Knee] 2 11/01/20 14:52 Pain Level 2 11/02/20 08:13 Assessment Mental Status: Awake (Alert & Oriented to Patient Baseline) Airway and Respiratory Function: Patent airway with normal (patient baseline) respiratory exam Cardiovascular Function: Hemodynamically Stable Hydration Status: Adequately Hydrated Nausea & Vomiting: No Nausea or Vomiting Pain: Pt. Denies Any Pain Peripheral Nerve Block: Patient did not receive a nerve block Teaching Patient Teaching: Discussed Safe Use of Pain Medication Given Recent Anesthesia and Discussed Safe Use of Pain Medication Given Likely or Known ANGEL
--- NOTE | 2020-11-03 16:30 | PT.INDS ---
Date of service: 11/03/20 PT Notes Visit Reasons: LEFT TKA Physical Therapy Inpatient Discharge Summary Date: 11/01/2020 Date of service: 11/01/2020 and This is a clinical summary of care provided for the duration of dates listed above. No charge was made in the completion of this documentation. Referring Doctor: JOANNA Perry PT Orders: PT CONSULT: Status post Ortho surgery Precautions: Fall. Standard. WBAT on left LE with AD. Patient Profile/Admitting Diagnosis: Frederic is a 65-year-old male with continued degenerative joint disease of the left knee and is status post left total knee arthroplasty on postoperative day 0. PMHX: Medical History (Updated 10/05/20 @ 10:20 by Preeti Marrero) HTN (hypertension) Left knee DJD Injection: 12/23/19, 03/16/2020 Obesity Surgical History Cholecystectomy (08/28/07) Colonoscopy - MAC (09/23/16) 07/22/08 05/05/13 Excision, Lipoma (07/12/09) deep left gluteus Repair of umbilical hernia 08/28/2007 & 09/04/2009 Social History/Home Situation: Equipment Owned/DME: Lives with in a private home with a ramp to enter. Independent with all ADLs without AD. Subjective: NT. See most recent ACCOUNT SERVICES MANAGER notes. Objective: General Observation: NT. See most recent ACCOUNT SERVICES MANAGER notes. Mental Status: NT. See most recent ACCOUNT SERVICES MANAGER notes. Vital Signs: NT. See most recent ACCOUNT SERVICES MANAGER notes. ROM: Right Upper Extremity: Shoulder Flexion WFL. Shoulder abduction WFL. Shoulder ER/IR WFL. Elbow flexion WFL. Forearm pronation/supination WFL. Wrist flexion WFL. Opening and closing of hand WFL. Left Upper Extremity: Shoulder Flexion WFL. Shoulder abduction WFL. Shoulder ER/IR WFL. Elbow flexion WFL. Forearm pronation/supination WFL. Wrist flexion WFL. Opening and closing of hand WFL. Right Lower Extremity: Hip flexion WFL. Hip abduction WFL. Hip ER/IR WFL. Knee flexion WFL. Knee extension. Ankle dorsiflexion/eversion WFL. Ankle plantarflexion/inversion WFL. Left Lower Extremity: Hip flexion WFL. Hip abduction WFL. Hip ER/IR WFL. Knee flexion 0 to 100 degrees. Knee extension 0. Ankle dorsiflexion WFL. Ankle plantarflexion WFL. Strength: Right Upper Extremity: Shoulder flexors 5/5. Shoulder abductors 5/5. Shoulder ER 5/5. Shoulder IR 5/5. Forearm pronators 5/5. Forearm supinators 5/5. Elbow flexors 5/5. Elbow extensors 5/5. Print Finisher strong. Left Upper Extremity: Shoulder flexors 5/5. Shoulder abductors 5/5. Shoulder ER 5/5/ Shoulder IR 5/5. Forearm pronators 5/5. Forearm supinators 5/5. Elbow flexors 5/5. Elbow extensors 5/5. Print Finisher strong. Right Lower Extremity: Hip flexors 5/5. Hip abductors 5/5. Hip external rotators 5/5. Hip internal rotators 5/5. Knee flexors 5/5. Knee extensors 5/5. Ankle dorsiflexors/evertors 5/5. Ankle plantarflexors/invertors 5/5. Left Lower Extremity: Hip flexors 4/5. Hip abductors 4/5. Hip external rotators 4/5. Hip internal rotators 4/5. Knee flexors 3-/5. Knee extensors 4/5. Ankle dorsiflexors/evertors 5/5. Ankle plantarflexors/invertors 5/5. Bed Mobility/Transfers: Supine to sit independent Sit to stand independent Stand to sit independent Bed to chair independent Chair to bed independent Gait: Distance of 300 feet independently using front wheeled walker with step through heel toe gait pattern. Izabela increasing. Step height left increasing. Step length left increasing. Balance: Static Sitting: Normal Dynamic Sitting: Normal Static Standing: Good Dynamic Standing: Fair Assessment: Patient has shown functional gains with bed mobility, tarnsfers and level surface ambulation up to 300 feet using the FWW due to skilled services ans pain management provided for this admission. Goals: Goals X1 week 1. Supine-Sit independent MET 2. Sit-Supine independent MET 3. Sit-Stand independent MET 4. Stand-Sit independent MET 5. Bed-Chair independent MET 6. Chair-Bed independent MET 7. Independent gait on level surface with use of front wheeled walker for at least 500 feet without report of pain nor dyspnea MET 8. Independent with home exercise program MET 9. Good static and dynamic standing balance/tolerance NOT MET DISCHARGE RECOMMENDATIONS: Home when medically cleared by orthopedic surgeon. Will benefit from using higher walker x1 to the times that reduce fall risk at home. Outpatient PT services to facilitate return to community ambulation without an assistive device. TREATMENT CODE/TIME: [place] Thank you for the opportunity to participate in the care of this patient. Yaneth Johnson PT, DPT, CLT [facility] [place], [place]
== END 2020-11-02 10:57 | disposition home or self-care (01) ==
LOC: MS 11-02 08:28 → SUR 11-02 09:10 → MS 11-02 09:10
PROVIDERS: Admitting Provider Student in an Organized Health Care Education/Training Program; PCP Nurse Practitioner; Visit Provider Student in an Organized Health Care Education/Training Program
PROC: (CPT 27447; principal; 2020-11-01 07:30)
DX: M17.12 Unilateral primary osteoarthritis, left knee (principal); Z68.42 Body mass index [BMI] 45.0-49.9, adult; E66.01 Morbid (severe) obesity due to excess calories; I10 Essential (primary) hypertension; E78.00 Pure hypercholesterolemia, unspecified; N13.8 Other obstructive and reflux uropathy; L40.9 Psoriasis, unspecified
CPT/HCPCS: 27447; 97110; 97162; 97530; 71045; 81003; 81015; G0378; J0690; J1100; J1885; J2001; J2250; J2370; J2405

== ENCOUNTER → 2020-11-09 13:52 | Outpatient (BNVA) | payer MEDICARE, OTHER, SELFPAY | PROVIDERS: PCP Nurse Practitioner; Referring Provider Nurse Practitioner; Visit Provider Physician Assistant | DX: Z47.1 Aftercare following joint replacement surgery (principal); Z96.652 Presence of left artificial knee joint ==

== ENCOUNTER 2020-11-17 09:22 | Outpatient (CLI) | payer MEDICARE, OTHER, SELFPAY ==
--- NOTE | 2020-11-17 09:15 | DI.RAD_ITS ---
Exam(s) XR KNEE LT 1V XR STANDING ALIGNMENT EXAM: XR STANDING ALIGNMENT CLINICAL HISTORY: 1ST POST OP L TKA. TECHNIQUE: 2D digital imaging was performed. Standing AP views were performed from the pelvis throu gh the ankles. COMPARISON: CR XR STANDING ALIGNMENT from 09/25/2020 CR XR STANDING ALIGNMENT from 09/25/2020 CR XR KNEE LT 1V from 11/17/2020 CR XR KNEE LT 1V from 11/17/2020 FINDINGS: BONES: No acute fracture is present. No bony destructive lesion is seen. JOINTS: Knees: Left knee prosthesis. Severe narrowing of the medial femoral tibial joint space of th e right knee with some varus angulation. The ankle joints a show degenerative changes, right greater than left. The hip joints show symmetr ic mild bilateral joint space narrowing. The hip hip joints are not well seen seen due to overlying abdominal soft tissues. SOFT TISSUE: Vascular calcifications. Lower leg edema. IMPRESSION: Severe degenerative changes of the medial femoral tibial joint of the right knee. Left knee prosthes is. No significant leg length discrepancy. DATA REPOSITORY: RADIATION DOSE DELIVERED:
== END 2020-11-17 09:23 | disposition home or self-care (01) ==
LOC: DIORS 09:22
PROVIDERS: PCP Nurse Practitioner; Referring Provider Nurse Practitioner; Visit Provider Student in an Organized Health Care Education/Training Program
DX: Z47.1 Aftercare following joint replacement surgery (principal); Z96.652 Presence of left artificial knee joint; M17.12 Unilateral primary osteoarthritis, left knee; M17.11 Unilateral primary osteoarthritis, right knee
CPT/HCPCS: 73560; 77073

== ENCOUNTER → 2020-12-14 08:43 | Outpatient (BNVA) | payer MEDICARE, OTHER, SELFPAY | PROVIDERS: PCP Nurse Practitioner; Referring Provider Nurse Practitioner | DX: Z47.1 Aftercare following joint replacement surgery (principal); Z96.652 Presence of left artificial knee joint; M17.12 Unilateral primary osteoarthritis, left knee ==

== ENCOUNTER → 2021-04-02 10:48 | Outpatient (BNVA) | payer MEDICARE, OTHER, SELFPAY | PROVIDERS: PCP Nurse Practitioner; Referring Provider Nurse Practitioner | DX: S76.112A Strain of left quadriceps muscle, fascia and tendon, initial encounter (principal); W01.0XXA Fall on same level from slipping, tripping and stumbling without subsequent striking against object, initial encounter | CPT/HCPCS: 99213 ==

== ENCOUNTER 2021-04-11 02:00 | Outpatient (RCR) | payer MEDICARE, OTHER, SELFPAY ==
--- NOTE | 2021-04-11 09:00 | HOLTER_ITS ---
APPROVED REPORT Conclusion This is a 48-hour Holter monitor ordered for bradycardia/arrhythmia Predominant rhythm is sinus with an average heart rate of 78. Minimum was 61, maximum 119 There were occasional ventricular ectopic beats, rare couplets. It was one 5 beat run of accelerated idioventricular rhythm There were frequent atrial premature beats. There were multiple self-limited atrial runs, the longes t of which was 6 beats in duration There was no atrial fibrillation, no high-grade AV block, no pauses greater than 3 seconds There were no apparent patient symptoms
== END 2021-04-24 23:59 | disposition home or self-care (01) ==
LOC: RT 02:00
PROVIDERS: PCP Nurse Practitioner; Visit Provider Nurse Practitioner
DX: I49.8 Other specified cardiac arrhythmias (principal); R00.1 Bradycardia, unspecified; I49.3 Ventricular premature depolarization; I49.1 Atrial premature depolarization; I44.2 Atrioventricular block, complete
CPT/HCPCS: 93227; 93225; 93226

== ENCOUNTER 2021-04-11 03:32 | Outpatient (CLI) | payer MEDICARE, SELFPAY ==
[2021-04-11 09:39] LABS: Calculated LDL 103 mg/dL (<100); Cholesterol 188 mg/dL (<200); HDL Cholesterol 59 mg/dL (40-60); Triglyceride 132 mg/dL (<150)
== END 2021-04-11 03:33 | disposition home or self-care (01) ==
LOC: LBO 03:33
PROVIDERS: PCP Nurse Practitioner; Visit Provider Nurse Practitioner
DX: I10 Essential (primary) hypertension (principal); N13.8 Other obstructive and reflux uropathy; N40.1 Benign prostatic hyperplasia with lower urinary tract symptoms; Z12.5 Encounter for screening for malignant neoplasm of prostate
CPT/HCPCS: 36415; 80061; 84153; 93227; 93225

== ENCOUNTER 2021-05-07 12:48 | Outpatient (CLI) | payer MEDICARE, OTHER, SELFPAY ==
--- NOTE | 2021-05-07 11:45 | DI.RAD_ITS ---
Exam(s) XR KNEE LT 3V AP,LAT,QING EXAM: XR KNEE LT 3V AP,LAT,QING CLINICAL HISTORY: pain in knee. TECHNIQUE: 2D digital imaging was performed. COMPARISON: CR XR KNEE LT 1V from 11/17/2020 FINDINGS: Stable position alignment of the components of the prosthesis. No fracture or loosening evident. IMPRESSION: DATA REPOSITORY: RADIATION DOSE DELIVERED:
== END 2021-05-07 12:49 | disposition home or self-care (01) ==
LOC: DIORS 12:48
PROVIDERS: PCP Nurse Practitioner; Referring Provider Nurse Practitioner; Visit Provider Student in an Organized Health Care Education/Training Program
DX: T84.84XA Pain due to internal orthopedic prosthetic devices, implants and grafts, initial encounter (principal); Z96.652 Presence of left artificial knee joint; S76.112A Strain of left quadriceps muscle, fascia and tendon, initial encounter; W19.XXXD Unspecified fall, subsequent encounter
CPT/HCPCS: 73562; 99213

== ENCOUNTER → 2021-09-07 09:23 | Outpatient (BNVA) | payer MEDICARE, OTHER, SELFPAY | PROVIDERS: PCP Nurse Practitioner; Visit Provider Student in an Organized Health Care Education/Training Program | DX: S76.112A Strain of left quadriceps muscle, fascia and tendon, initial encounter (principal); W19.XXXA Unspecified fall, initial encounter | CPT/HCPCS: 99214 ==

== ENCOUNTER → 2021-09-18 10:41 | Outpatient (BNVA) | payer MEDICARE, OTHER, SELFPAY | PROVIDERS: PCP Nurse Practitioner; Referring Provider Nurse Practitioner; Visit Provider Nurse Practitioner Gerontology | DX: N40.1 Benign prostatic hyperplasia with lower urinary tract symptoms (principal); N13.8 Other obstructive and reflux uropathy; R33.8 Other retention of urine | CPT/HCPCS: 51798; 81003; 99215 ==

== ENCOUNTER → 2021-10-12 08:25 | Outpatient (BNVA) | payer MEDICARE, OTHER, SELFPAY | PROVIDERS: PCP Nurse Practitioner; Referring Provider Nurse Practitioner; Visit Provider Urology | DX: N40.1 Benign prostatic hyperplasia with lower urinary tract symptoms (principal); R33.8 Other retention of urine; N13.8 Other obstructive and reflux uropathy | CPT/HCPCS: 51798; 81003; 99215 ==

== ENCOUNTER → 2021-10-23 08:56 | Outpatient (BNVA) | payer MEDICARE, OTHER, SELFPAY | PROVIDERS: PCP Nurse Practitioner; Referring Provider Nurse Practitioner; Visit Provider Nurse Practitioner Gerontology | DX: N40.1 Benign prostatic hyperplasia with lower urinary tract symptoms (principal); N13.8 Other obstructive and reflux uropathy; R33.8 Other retention of urine | CPT/HCPCS: 99214 ==

== ENCOUNTER 2021-11-05 09:21 | Outpatient (CLI) | payer MEDICARE, OTHER, SELFPAY ==
--- NOTE | 2021-11-05 08:45 | DI.RAD_ITS ---
Exam(s) XR KNEE LT 2V AP,LAT EXAM: XR KNEE LT 2V AP,LAT INDICATION: ANNUAL F/U L TKA. COMPARISON: CR XR KNEE LT 1V from 09/25/2020 CR XR STANDING ALIGNMENT from 11/17/2020 CR XR KNEE LT 1V from 11/17/2020 CR XR KNEE LT 3V AP,LAT,QING from 05/07/2021 TECHNIQUE: 2D digital imaging was performed. Two views. FINDINGS: There has been no change in the total knee prosthesis or appearance of the surrounding bone. Vascula r calcifications are noted. DATA REPOSITORY: RADIATION DOSE DELIVERED:
== END 2021-11-05 09:22 | disposition home or self-care (01) ==
LOC: DIORS 09:21
PROVIDERS: PCP Nurse Practitioner; Referring Provider Nurse Practitioner; Visit Provider Student in an Organized Health Care Education/Training Program
DX: Z96.652 Presence of left artificial knee joint; S76.112D Strain of left quadriceps muscle, fascia and tendon, subsequent encounter; W19.XXXD Unspecified fall, subsequent encounter
CPT/HCPCS: 99212; 73560

== ENCOUNTER → 2021-11-13 14:42 | Outpatient (BNVA) | payer MEDICARE, OTHER, SELFPAY | PROVIDERS: PCP Nurse Practitioner; Referring Provider Nurse Practitioner; Visit Provider Urology | DX: N40.1 Benign prostatic hyperplasia with lower urinary tract symptoms (principal); N13.8 Other obstructive and reflux uropathy; R33.8 Other retention of urine | CPT/HCPCS: 51798; 99213 ==

== ENCOUNTER → 2021-11-15 14:17 | Outpatient (BNVA) | payer MEDICARE, OTHER, SELFPAY | PROVIDERS: PCP Nurse Practitioner; Referring Provider Nurse Practitioner; Visit Provider Urology | DX: N40.1 Benign prostatic hyperplasia with lower urinary tract symptoms (principal); R33.8 Other retention of urine | CPT/HCPCS: 51702; 51798 ==

== ENCOUNTER 2021-11-30 15:31 | Outpatient (REF) | payer MEDICARE, OTHER, SELFPAY ==
[2021-11-30 14:00] LABS: Source Nasal/Nares
[2021-11-30 17:17] LABS: COVID-19 PCR Negative (Negative)
== END 2021-11-30 15:32 | disposition home or self-care (01) ==
LOC: LBN 15:31
PROVIDERS: Visit Provider Urology
DX: Z20.822 Contact with and (suspected) exposure to COVID-19 (principal); Z01.818 Encounter for other preprocedural examination
CPT/HCPCS: 87635

== ENCOUNTER 2021-12-03 06:14 | Inpatient (IN) | payer MEDICARE, OTHER, SELFPAY ==
[2021-12-03] VITALS (15 sets, daily range): BP systolic 59–125; BP diastolic 28–74; PULSE 61–73; RESP 13–26; TEMP 35.5–37.2; O2SAT 82–97; BMI 48.8
--- NOTE | 2021-12-03 06:53 | HPE_ITS ---
Date of service: 12/03/21 Time of Service: 06:54 Assessment and Plan Assessment and plan (1) Urinary retention due to benign prostatic hyperplasia: Status: Acute Assessment and plan: We will plan to do a cystoscopy with TURP. We plan to admit him after the procedure for continuous bladder irrigation. Ultimately, we will discontinue all of his prostate medications. History of Present Illness History of Present Illness Chief Complaint: Urinary retention Narrative: This is a 66 year old man who has a history of urinary retention. He has failed maximal medical therapy and presents for cystoscopy with TURP. He has an indwelling contreras catheter. He has had a knee replacement less than 2 years ago. Review of Systems Narrative: No fevers or chills No vision change or dysphasia No diabetes or thyroid dysfunction No shortness of breath, cough or hemoptysis Hx bradycardia. No chest pain No nausea, vomiting, hepatitis, ulcers, jaundice No seizures, strokes or peripheral neuropathy No bleeding disorders or anemia c/o joint pain. No gout PFSH All Active Problems BPH w urinary obs/LUTS (Chronic 10/24/17) Essential hypertension (Chronic) Hypercholesterolemia (Chronic) Morbid obesity (Chronic) Psoriasis (Chronic) 10/11/11 Polyp of colon (Acute) Prediabetes (Acute) 10/2020- A1c- 5.7 Strain of left quadriceps (Acute) Bradycardia (Acute) Irregular heart beat (Acute) Painful total knee replacement, left (Acute) Rupture of left quadriceps tendon (Acute) medial partial, distal Urinary retention due to benign prostatic hyperplasia (Acute) Status post total left knee replacement (Acute) Medical History HTN (hypertension) Obesity Surgical History Cholecystectomy (08/28/07) Colonoscopy - MAC (09/23/16) 07/22/08 05/05/13 Excision, Lipoma (07/12/09) deep left gluteus H/O total knee replacement 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 Brother No problems noted. Son No problems noted. Son No problems noted. Step daughter No problems noted. Family History Essential hypertension Hyperlipidemia Social History Smoking/Tobacco Use Status: Never Second Hand Exposure: No Smoking risk assessment performed?: Yes Alcohol Intake: current Alcohol Intake frequency: a few times a week Drug use: Never Substance use type: does not use Caregiver/Support person: No Household members: spouse Housing: house Communication Needs: Corrective Lenses Do you need help understanding health information?: Never Pets and animals: No Sexually active: Yes Do you think of yourself as: straight/heterosexual Current gender identity: male What is your relationship status?: How often do you talk on the phone with friends or family?: twice per week How often do you get together with friends or relatives?: once per week How often do you attend gnosticist or jehovah's witness services?: 4 or more times per year Do you belong to any clubs or organized social groups?: no Panel score (0-1 are the most socially isolated patients): 3 What type of physical activity do you participate in: walking Duration: 15-30 minutes/day Frequency: 1-2 times per week Kalyani/Buddhist: Mormon Special kalyani needs: No Seatbelt use: sometimes Drive intox or ride w/intox equipment driver: No Do you feel safe at home: Yes Do you feel safe in your relationship?: Yes Meds Allergies and Home Medications Allergies Allergy/AdvReac Type Severity Reaction Status Date / Time No Known Allergies Allergy Verified 12/03/21 06:39 Home Medications Medication Instructions Recorded Confirmed Type losartan 100 mg tablet 100 mg PO DAILY #90 tab-caps 11/23/20 12/03/21 Rx tamsulosin 0.4 mg capsule 0.8 mg PO HS #180 tab-caps 11/23/20 12/03/21 Rx triamcinolone acetonide 0.1 % 1 applic topical BID #453.6 grams 11/23/20 12/03/21 Rx topical cream amlodipine 5 mg tablet 5 mg PO DAILY #90 tabs 03/14/21 12/03/21 Rx atorvastatin 20 mg tablet 20 mg PO QPM #90 tabs 03/14/21 12/03/21 Rx finasteride 5 mg tablet 5 mg PO DAILY #90 tabs 09/18/21 12/03/21 Rx chlorthalidone 25 mg tablet 25 mg PO DAILY #30 tab-caps 10/08/21 12/03/21 Rx Exam Const Nutritional Appearance: obese Neck Neck: supple Resp Effort & Inspection: normal respiratory effort Auscultation: clear to auscultation bilaterally Cardio Rate: regular rate Rhythm: regular rhythm GI Inspection: normal to inspection and obesity Palpation: soft General: other (contreras catheter in place) Neuro General: patient alert, patient awake and patient oriented x3 Results Last Vital Signs Temp 36.5 C 12/03/21 06:23 Pulse 73 12/03/21 06:23 Resp 20 12/03/21 06:23 BP 108/58 L 12/03/21 06:23 Pulse Ox 95 12/03/21 06:23
--- NOTE | 2021-12-03 06:58 | W.ANESPRE ---
General Info Date of Service Date Performed: 12/03/21 Height: 5 ft 11 in Weight: 158.7 kg Body Mass Index (BMI): 48.8 Surgical Procedure: Operation Date: 12/03/21 07:40 Proposed Procedure Side Surgeon p Transurethral Resection Prostate Gold Forde MD Meds Allergies and Home Medications Allergies Allergy/AdvReac Type Severity Reaction Status Date / Time No Known Allergies Allergy Verified 12/03/21 06:39 Home Medication Medication Instructions Recorded losartan 100 mg tablet 100 mg PO DAILY #90 tab-caps 11/23/20 tamsulosin 0.4 mg capsule 0.8 mg PO HS #180 tab-caps 11/23/20 triamcinolone acetonide 0.1 % 1 applic topical BID #453.6 grams 11/23/20 topical cream amlodipine 5 mg tablet 5 mg PO DAILY #90 tabs 03/14/21 atorvastatin 20 mg tablet 20 mg PO QPM #90 tabs 03/14/21 finasteride 5 mg tablet 5 mg PO DAILY #90 tabs 09/18/21 chlorthalidone 25 mg tablet 25 mg PO DAILY #30 tab-caps 10/08/21 Current Visit Medications: Current Medications Generic Name Dose Route Start Last Admin Trade Name Freq PRN Reason Stop Dose Admin Ringer's Solution 1,000 mls @ 80 mls/hr 12/03/21 06:00 IV 12/30/21 23:59 INFUSION ESAU Cefazolin Sodium 3,000 mg/ 100 mls @ 200 mls/hr 12/03/21 06:00 Sodium Chloride IVPB 12/03/21 18:00 PREOP ESAU Gentamicin Sulfate 240 mg/ 106 mls @ 212 mls/hr 12/03/21 06:00 Sodium Chloride IVPB 12/03/21 18:00 PREOP ESAU IV Miscellaneous Supplies 1 each 12/03/21 06:00 Iv Access IV 12/30/21 23:59 DIRECTED ESAU Sodium Chloride 0 ml 12/03/21 06:00 Normal Saline Flush 10 Ml Syr IV 12/30/21 23:59 PRN PRN Sodium Chloride 0 ml 12/03/21 06:00 Normal Saline 10 Ml Vial IJ 12/30/21 23:59 DIRECTED PRN Sterile Water 0 ml 12/03/21 06:00 Water,Injection,Sterile 10 Ml Vial IJ 12/30/21 23:59 DIRECTED PRN PFSH Active Problems Active Problems: Problem Status Onset Code BPH w urinary obs/LUTS 10/24/17 N40.1, N13.8 Essential hypertension I10 Hypercholesterolemia E78.00 Morbid obesity E66.01 Psoriasis L40.9 Polyp of colon K63.5 Prediabetes R73.03 Strain of left quadriceps S76.112A Bradycardia R00.1 Irregular heart beat I49.9 Painful total knee replacement, left T84.84XA, Z96.652 Rupture of left quadriceps tendon S76.112A Urinary retention due to benign prostatic hyperplasia N40.1, R33.8 Status post total left knee replacement Z96.652 Medical History Medical History HTN (hypertension) Obesity Surgical History Surgical History Cholecystectomy (08/28/07) Colonoscopy - MAC (09/23/16) 07/22/08 05/05/13 Excision, Lipoma (07/12/09) deep left gluteus H/O total knee replacement 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 Injection: 12/23/19, 03/16/2020 Repair of umbilical hernia 08/28/2007 & 09/04/2009 Tobacco Smoking/Tobacco Use Status: Never Second hand exposure: No Alcohol Alcohol Intake: current Alcohol intake frequency: a few times a week Substance Use Substance use: Never Substance use type: does not use Vital Signs and Lab Results Vital Signs Most Recent Vital Signs in EMR: Most Recent Vital Signs Temp Pulse Resp BP Pulse Ox 36.5 C 73 20 108/58 L 95 12/03/21 06:23 12/03/21 06:23 12/03/21 06:23 12/03/21 06:23 12/03/21 06:23 Lab Results Blood Type / Crossmatch: No Data to Display Complete Blood Count: No Data to Display Complete Metabolic Panel: No Data to Display Liver Function Panel: No Data to Display Coagulation Panel: No Data to Display Cardiac Panel: No Data to Display Arterial Blood Gas: No Data to Display Venous Blood Gas: No Data to Display Pancreas Panel: No Data to Display Thyroid Panel: No Data to Display Infectious Disease: Coronavirus (COVID-19)(PCR) Negative (Negative) 11/30/21 08:00 Coronavirus 2019 Source Nasal/Nares 11/30/21 08:00 Blood Cultures: No Data to Display Toxicology Panel: No Data to Display Imaging and Studies Imaging and Studies Study information below may be from another EMR and interpreted by another provider. Please see original notes in EMR for more complete details. EKG Summary: DATE/TIME OF SERVICE: 04/06/21 1351 : 4PERFORMING LOCATION: [facility] APPROVED REPORT Exam: Resting ECG Reason for Exam: htn Patient Location: O HR:89 bpm ECG Measurements Heart Rate 89 AXIS FL 183 P 9 QRSd 159 QRS -70 QT 411 T29 QTc 480 Conclusion Sinus rhythm...normal P axis, V-rate 60- 99 RBBB and LAFB...QRSd >120mS, axis(-40,240) Stress Test Summary: Date of study: 09/24/2017 *PATIENT PRESENTATION* Height: 180.3cm (71in) Blood Pressure: Weight: 164.5kg (362lb) BSA: 2.96m^2 Referring physician: Dillon Lozoya Ordering physician: Kenyon Kessler Impressions: Normal myocardial perfusion and contraction after pharmacological stress. Summary: 1. Myocardial perfusion imaging: No myocardial perfusion defects noted. 2. The calculated left ventricular ejection fraction after stress: 53%. LV global systolic function is normal. No left ventricular regional motion abnormality. Anesthesia Assessment and Plan Anesthesia History Personal History: No History of Anesthesia Complications Family History: No Family History of Anesthesia Complications Exercise Tolerance Exercise Tolerance: Metabolic Equivalents>4 Pertinent Negatives Pertinent Negatives: No Symptoms of GERD, No Major Cardiovascular Symptoms or Complaints and No Major Pulmonary Symptoms or Complaints Cardiac & Pulmonary Exam Cardiac Exam: Normal S1/S2 Heart Sounds Pulmonary Exam: Clear Bilateral Breath Sounds Implantable Cardiac Device Does patient have a Pacemaker or an ICD?: No Airway Exam Known Difficult Airway: No Mallampati Class: 2 Mouth Opening: Normal (> 3cm) Thyromental Distance: Greater than 3 cm Neck Range of Motion: Limited ROM Neck Circumference: Thick Teeth Condition: Normal Dentition ASA Classification ASA Score: ASA 3 Emergency Case?: No NPO Status NPO Status: NPO Clears >2 hours, Solids >8 hours Anesthesia Plan Resuscitation Status: Full Code Anesthesia Technique: General Anesthesia Airway Planned: LMA Monitors Used: Standard Monitors
[2021-12-03] MEDS: ceFAZolin 3,000 MG in Normal Saline 100 ML 200 MG IVPB (07:23)
[2021-12-03] MEDS: Lactated Ringers 1,000 ML 80 ML IV ×2 (07:23→11:12)
[2021-12-03] MEDS: Lidocaine 2% Jelly 6 ML SYR (07:43)
--- NOTE | 2021-12-03 09:06 | PROST_PTH ---
PATIENT: Remy Brandon LOC: [place]#:[id number] AGE/SX: 66/M ROOM: RE12/03/[address]: Gold Forde MD : [id number] BED: A DIS: 12/04/2021 SPEC #: [id number] RECD: 12/03/21 10:46 STATUS: JODIE REQ #: [id number] TC: 12/03/21 09:[address]: Gold Forde DEPT: Surgical Specimen RECD BY: Mariah Luis ENTERED: 12/03/21 10:49 SP TYPE: PROST OTHR DR: Unknown,Unknown Tissues: 1 - PROSTATE RESECTION Procedures: GROSS AND MICRO LEVEL 4 Comments: [id number]
--- NOTE | 2021-12-03 09:20 | ROE_ITS ---
Date of service: 12/03/21 Time of Service: 09:20 Operative Note Operative Note DATE OF PROCEDURE: 12/03/21 PRE-OP DIAGNOSIS: Urinary retention POST-OP DIAGNOSIS: same PROCEDURE: cystoscopy with TURP SURGEON: Gold Forde ANESTHESIA TYPE: General LMA/ETT Refer to Anesthesia Record ESTIMATED BLOOD LOSS: 300 PATHOLOGY: other (prostate chips) COMPLICATIONS: None Patient was transported to: PACU Patient's condition: stable Implants: 24 Niuean hematuria catheter with 500 cc sterile water in balloon Indications: This is a 66-year-old gentleman who developed urinary retention. He has not been able to void in spite of maximal medical therapy. He presents for transurethral resection of the prostate. Findings: Trilobar enlargement of prostate Procedure Description: The patient was brought to the op. After successful induction of general anesthesia, he was placed in the dorsal lithotomy position. His indwelling catheter was removed. His genitalia was prepped and draped. 2% Xylocaine jelly was then instilled into the urethra. A 24 Niuean resectoscope sheath was passed through the urethra into the bladder. We used the visual obturator and a 30 degree lens to inspect the urethra and bladder. The pendulous, bulbar and membranous urethra appeared normal with no strictures. The prostatic urethra had trilobar enlargement with enlarged the lateral lobes as well as a median lobe jetting back into the bladder. The bladder was trabeculated but no papillary or nodular lesions were seen. We then utilized an [employer] resectoscope and bipolar cautery to perform transurethral resection of prostate from the bladder neck out to the verumontanum. The depth of the resection was down to the prostatic capsule. All resected tissue was evacuated and sent to pathology for permanent section. We switched to the plasma button at the completion of the procedure to help with hemostasis. The bladder was then filled with irrigant and the resectoscope was removed. A 24 Niuean hematuria catheter was passed through the urethra into the bladder. The catheter balloon was inflated with 50 cc of sterile water and continuous bladder irrigation with saline was begun. Traction was placed on the catheter until the irrigant became clear. The patient tolerated the procedure well with no complications.
--- NOTE | 2021-12-03 11:00 | W.ANESPOSTOP ---
Postoperative Evaluation Date, Time and Location Date Performed: 12/03/21 Time Performed: 11:00 Patient Location: PACU Vital Signs Most Recent Imported Vital Signs: Most Recent Vital Signs Temp Pulse Resp BP Pulse Ox 35.5 C L 62 18 97/58 L 94 12/03/21 10:50 12/03/21 10:50 12/03/21 10:50 12/03/21 10:50 12/03/21 10:50 Pain Score Most Recent Pain Score: Most Recent Pain Score Pain Level 0 12/03/21 10:50 Assessment Mental Status: Awake (Alert & Oriented to Patient Baseline) Airway and Respiratory Function: Patent airway with normal (patient baseline) respiratory exam Cardiovascular Function: Hemodynamically Stable Hydration Status: Adequately Hydrated Nausea & Vomiting: No Nausea or Vomiting Pain: Pain is tolerable per patient Peripheral Nerve Block: Patient did not receive a nerve block
[2021-12-03] MEDS: Normal Saline Flush 10 ML SYR IV (11:11)
[2021-12-03] MEDS: ceFAZolin 1 GM/50 ML BAG IVPB ×2 (13:51→21:31)
[2021-12-03] MEDS: Tamsulosin 0.4 MG CAPCR 0.8 MG PO (21:28)
[2021-12-03] MEDS: Atorvastatin 20 MG TAB PO (21:28)
[2021-12-03] MEDS: Docusate Sodium 100 MG CAP PO (21:28)
[2021-12-03] MEDS: Acetaminophen 325 MG TAB 650 MG PO (21:30)
[2021-12-03] MEDS: Lactated Ringers 1,000 ML 100 ML IV (22:12)
[2021-12-04] MEDS: ceFAZolin 1 GM/50 ML BAG IVPB (05:13)
[2021-12-04 05:16] VITALS: BP 124/68; PULSE 78; RESP 19; TEMP 37.5; O2SAT 97
[2021-12-04 06:21] LABS: HCT 35.8 % (40.0-50.0); HGB 12.5 g/dL (13.5-17.5); MCH 32.8 pg (27.0-33.0); MCHC 34.9 % (32.0-36.0); MCV 94 fL (80-95); MPV 9.9 fL (8.0-11.0); Platelet Count 161 10^3/uL (130-400); RBC 3.81 10^6/uL (4.36-5.78); RDW 12.6 % (11.8-14.1); WBC 7.76 10^3/uL (4.4-10.8)
[2021-12-04 06:32] LABS: BUN 24 mg/dL (7-18); CREATININE 1.1 mg/dL (0.70-1.30); Calcium 7.9 mg/dL (8.5-10.1); Chloride 104 mmol/L (98-107); Glucose 113 mg/dL (74-106); Potassium 3.5 mmol/L (3.5-5.1); Sodium 142 mmol/L (136-145)
[2021-12-04 07:30] VITALS: BP 124/76; PULSE 75; RESP 15; TEMP 37.4; O2SAT 93
--- NOTE | 2021-12-04 07:31 | W.PM.PROGNOT ---
Date of Service Date of service: 12/04/21 Time of Service: 07:31 Assessment and Plan Assessment and plan (1) Urinary retention due to benign prostatic hyperplasia: Status: Acute Assessment and plan: We will issue today with his Muller catheter in place. He will follow-up in 3 to 7 days for catheter removal. Subjective Subjective Interval history since last seen: He has remained comfortable overnight with no episodes of clot retention. He is tolerating oral medications and nutrition. Exam Narrative Exam Narrative: He looks comfortable. His bladder irrigation is clear He is awake and alert Objective Last Vital Signs Temp 37.4 C 12/04/21 07:30 Pulse 75 12/04/21 07:30 Resp 15 12/04/21 07:30 BP 124/76 12/04/21 07:30 Pulse Ox 93 12/04/21 07:30 Laboratory Results - last 24 hr 12/04/21 12/04/21 06:05 06:05 WBC 7.76 RBC 3.81 L Hgb 12.5 L Hct 35.8 L MCV 94 MCH 32.8 MCHC 34.9 RDW 12.6 Plt Count 161 MPV 9.9 Sodium 142 Potassium 3.5 Chloride 104 Carbon Dioxide 29.0 Anion Gap 9.0 BUN 24 H Creatinine 1.1 Estimated GFR/1.73 m2 >= 60.00 Glucose 113 H Calcium 7.9 L
--- NOTE | 2021-12-04 07:33 | DSE_ITS ---
Date of service: 12/04/21 Time of Service: 07:33 DS: Diagnosis Discharge Diagnosis (1) Urinary retention due to benign prostatic hyperplasia: Status: Acute Discharge Plan Disposition Patient Disposition: HOME Condition: Stable Discharge Details Reason For Visit: urinary retention Admit Date/Time: 12/03/21 06:14 Admit Provider: Gold Forde Attending Provider: Gold Forde Primary Care Provider: Unknown,Unknown Hospital Course Hospital Course: The patient was admitted and taken to the operating room on 12/03/2021. He underwent transurethral resection of his prostate. Following the procedure, an irrigating catheter was left in place and continuous bladder irrigation was maintained for 24 hours. On postoperative day #1, the irrigant was clear. The patient's labs were stable. He was able to tolerate oral nutrition and medications. He has been deemed appropriate for discharge. Home Meds and New Rx's Prescriptions: No Action finasteride 5 mg tablet 5 mg PO DAILY Qty: 90 3RF triamcinolone acetonide 0.1 % cream 1 applic topical BID Qty: 453.6 0RF losartan 100 mg tablet 100 mg PO DAILY Qty: 90 4RF tamsulosin 0.4 mg capsule 0.8 mg PO HS Qty: 180 4RF amlodipine 5 mg tablet 5 mg PO DAILY Qty: 90 4RF atorvastatin 20 mg tablet 20 mg PO QPM Qty: 90 4RF chlorthalidone 25 mg tablet 25 mg PO DAILY Qty: 30 0RF Discharge Instructions Additional Instructions: Plug irrigation port on catheter - drainage port to leg bag Followup for catheter removal 3 to 7 days Followup appt with me in 2 weeks OK to shower Activity:: no lifting over 10 pounds Equipment/Supplies:: contreras to legbag Diet:: As Tolerated Discharge Orders Discharge Orders: Discharge Order (Routine); Ordered 12/04/21 Ordered By: Gold Forde DS: Summary Time Spent with Patient providing and/or coordinating discharge services: Less than 30 minutes Status at Discharge Functional status at discharge: independent ambulation Overall status at discharge: patient is back to baseline Mental Status: mental status grossly normal Speech and Movement: speech and movement normal Mood: congruent mood Affect: normal affect Exam Narrative Exam Narrative: At the time of discharge, he looks comfortable. His vital signs are documented elsewhere in the chart His chest wall motion is normal. He is not short of breath at rest. His abdomen is soft with no guarding or rebound tenderness His urine is clear and the catheter drainage bag He is awake and alert Psych Mental Status: mental status grossly normal Speech and Movement: speech and movement normal Mood: congruent mood Affect: normal affect DS: Data Vitals/I&O Vitals and I&O: Vital Signs Temperature 37.4 C 12/04/21 07:30 Temperature Source Tympanic 12/04/21 07:30 Pulse 75 12/04/21 07:30 Pulse Rhythm Regular 12/04/21 03:38 Respiratory Rate 15 12/04/21 07:30 Respiratory Effort Non-Labored 12/04/21 03:38 Respiratory Depth Normal 12/04/21 03:38 Respiratory Pattern Normal 12/04/21 03:38 Blood Pressure 124/76 12/04/21 07:30 Pulse Oximetry 93 12/04/21 07:30 Respiratory End-tidal CO2 35 12/03/21 10:20 Oxygen Delivery Method Room Air 12/04/21 07:30 Oxygen Flow Rate 0 12/04/21 07:30 Pain Level 2 12/04/21 07:30 Intake & Output 12/03/21 12/03/21 12/04/21 11:59 23:59 11:59 Intake Total 1015.334 / 2552.667 1537.333 / 2552.667 60 / 60 Balance 1015.334 / 2552.667 1537.333 / 2552.667 60 / 60 Weight 158.7 kg Intake: IV 1015.334 / 2062.667 1047.333 / 2062.667 10 / 10 Oral 490 / 490 50 / 50 Other: Urine Color Black Hat Black Hat Black Hat Urine Appearance Clear Hematuria Hematuria Comment pt has very mild bleeding on contreras insertion site [place] when pt is ambulating or moving Emesis Description None Data Completed and Pending Labs on day of discharge: Labs from last 24 hours 12/04/21 12/04/21 06:05 06:05 WBC 7.76 RBC 3.81 L Hgb 12.5 L Hct 35.8 L MCV 94 MCH 32.8 MCHC 34.9 RDW 12.6 Plt Count 161 MPV 9.9 Sodium 142 Potassium 3.5 Chloride 104 Carbon Dioxide 29.0 Anion Gap 9.0 BUN 24 H Creatinine 1.1 Estimated GFR/1.73 m2 >= 60.00 Glucose 113 H Calcium 7.9 L PFSH All Active Problems BPH w urinary obs/LUTS (Chronic 10/24/17) Essential hypertension (Chronic) Hypercholesterolemia (Chronic) Morbid obesity (Chronic) Psoriasis (Chronic) 10/11/11 Polyp of colon (Acute) Prediabetes (Acute) 10/2020- A1c- 5.7 Strain of left quadriceps (Acute) Bradycardia (Acute) Irregular heart beat (Acute) Painful total knee replacement, left (Acute) Rupture of left quadriceps tendon (Acute) medial partial, distal Urinary retention due to benign prostatic hyperplasia (Acute) Status post total left knee replacement (Acute) Medical History HTN (hypertension) Obesity Surgical History Cholecystectomy (08/28/07) Colonoscopy - MAC (09/23/16) 07/22/08 05/05/13 Excision, Lipoma (07/12/09) deep left gluteus H/O total knee replacement 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 Brother No problems noted. Son No problems noted. Son No problems noted. Step daughter No problems noted. Family History Essential hypertension Hyperlipidemia Social History Smoking/Tobacco Use Status: Never Second Hand Exposure: No Smoking risk assessment performed?: Yes Alcohol Intake: current Alcohol Intake frequency: a few times a week Drug use: Never Substance use type: does not use Caregiver/Support person: No Household members: spouse Housing: house Communication Needs: Corrective Lenses Do you need help understanding health information?: Never Pets and animals: No Sexually active: Yes Do you think of yourself as: straight/heterosexual Current gender identity: male What is your relationship status?: How often do you talk on the phone with friends or family?: twice per week How often do you get together with friends or relatives?: once per week How often do you attend druze or mormonism services?: 4 or more times per year Do you belong to any clubs or organized social groups?: no Panel score (0-1 are the most socially isolated patients): 3 What type of physical activity do you participate in: walking Duration: 15-30 minutes/day Frequency: 1-2 times per week Kalyani/Mandaeism: Evangelical Special kalyani needs: No Seatbelt use: sometimes Drive intox or ride w/intox driver license reviewing officer: No Do you feel safe at home: Yes Do you feel safe in your relationship?: Yes
[2021-12-04] MEDS: Finasteride 5 MG TAB PO (07:50)
[2021-12-04] MEDS: Chlorthalidone 25 MG TAB PO (07:50)
[2021-12-04] MEDS: Losartan 50 MG TAB 100 MG PO (07:50)
[2021-12-04] MEDS: amLODIPine 5 MG TAB PO (07:51)
[2021-12-04] MEDS: Docusate Sodium 100 MG CAP PO (07:51)
[2021-12-04] MEDS: Acetaminophen 325 MG TAB 650 MG PO (07:53)
== END 2021-12-04 09:30 | disposition home or self-care (01) | DRG 713 ==
LOC: PDS 06:15 → MS 10:44
PROVIDERS: Admitting Provider Urology; Visit Provider Urology
PROC: 0VT08ZZ Resection of Prostate, Via Natural or Artificial Opening Endoscopic (ICD-10-PCS; CPT 52601; principal; 2021-12-03 07:30)
DX: N40.1 Benign prostatic hyperplasia with lower urinary tract symptoms (principal); N42.89 Other specified disorders of prostate; R33.8 Other retention of urine; I10 Essential (primary) hypertension; E78.00 Pure hypercholesterolemia, unspecified; E66.01 Morbid (severe) obesity due to excess calories; L40.9 Psoriasis, unspecified; R73.03 Prediabetes; Z96.652 Presence of left artificial knee joint; Z68.42 Body mass index [BMI] 45.0-49.9, adult; N34.2 Other urethritis
CPT/HCPCS: 52601; 36415; 80048; 85027; 88300; 88305; 99238; 88307; J0690; J1100; J1580; J1885; J2405; J2704

== ENCOUNTER → 2021-12-07 08:45 | Outpatient (BNVA) | payer MEDICARE, OTHER, SELFPAY | PROVIDERS: Visit Provider Urology | DX: N40.1 Benign prostatic hyperplasia with lower urinary tract symptoms (principal); R33.8 Other retention of urine ==

== ENCOUNTER → 2021-12-18 13:45 | Outpatient (BNVA) | payer MEDICARE, OTHER, SELFPAY | PROVIDERS: PCP Nurse Practitioner; Visit Provider Urology | DX: N40.1 Benign prostatic hyperplasia with lower urinary tract symptoms (principal); N13.8 Other obstructive and reflux uropathy ==

== ENCOUNTER → 2022-01-18 13:50 | Outpatient (BNVA) | payer MEDICARE, OTHER, SELFPAY | PROVIDERS: PCP Nurse Practitioner; Referring Provider Nurse Practitioner; Visit Provider Urology | DX: N40.1 Benign prostatic hyperplasia with lower urinary tract symptoms (principal); N13.8 Other obstructive and reflux uropathy ==

== ENCOUNTER 2022-09-26 01:49 | Outpatient (CLI) | payer MEDICARE, SELFPAY ==
[2022-09-26 12:09] LABS: HCT 47.3 % (40.0-50.0); HGB 15.6 g/dL (13.5-17.5); MCV 97 fL (80-95); MPV 10.2 fL (8.0-11.0); Platelet Count 215 10^3/uL (130-400); RBC 4.87 10^6/uL (4.36-5.78); RDW 12.8 % (11.8-14.1); RDW-SD 45.2 fL
[2022-09-26 12:42] LABS: ALT 40 U/L (16-63); AST 20 U/L (15-37); Albumin 3.5 g/dL (3.4-5.0); Alkaline Phosphatase 120 U/L (46-116); Anion Gap 5.2 mmol/L (3-11); BUN 22 mg/dL (7-18); Bilirubin, Total 1.3 mg/dL (0.2-1.0); CO2 31.8 mmol/L (21.0-32.0); CREATININE 1.2 mg/dL (0.70-1.30); Calcium 9.1 mg/dL (8.5-10.1); Calculated LDL 106 mg/dL (<100); Chloride 104 mmol/L (98-107); Cholesterol 192 mg/dL (<200); Estimated GFR 65.87 (mL/min/1.73m2); Glucose 100 mg/dL (74-106); HDL Cholesterol 64 mg/dL (40-60); Potassium 3.9 mmol/L (3.5-5.1); Sodium 141 mmol/L (136-145); Total Protein 7.2 g/dL (6.4-8.2); Triglyceride 113 mg/dL (<150); Vitamin B12 875 pg/mL (193-986)
== END 2022-09-26 01:50 | disposition home or self-care (01) ==
LOC: LOS 01:49
PROVIDERS: PCP Nurse Practitioner Family; Visit Provider Nurse Practitioner Family
DX: E78.00 Pure hypercholesterolemia, unspecified (principal); E66.01 Morbid (severe) obesity due to excess calories; I49.9 Cardiac arrhythmia, unspecified; Z79.899 Other long term (current) drug therapy
CPT/HCPCS: 36415; 80053; 80061; 85027; 82607

== ENCOUNTER → 2023-09-18 07:58 | Outpatient (BNVA) | payer MEDICARE, OTHER, SELFPAY | PROVIDERS: PCP Nurse Practitioner Family; Referring Provider Nurse Practitioner Family; Visit Provider Physical Therapy Assistant | DX: Z12.11 Encounter for screening for malignant neoplasm of colon (principal) ==

== ENCOUNTER 2023-09-19 09:16 | Outpatient (REF) | payer MEDICARE, OTHER, SELFPAY ==
[2023-09-19 13:45] LABS: Hemoglobin A1C 5.5 % (<5.7)
[2023-09-19 13:59] LABS: ALT 55 U/L (16-63); AST 30 U/L (15-37); Albumin 3.7 g/dL (3.4-5.0); Alkaline Phosphatase 128 U/L (46-116); Anion Gap 8.8 mmol/L (3-11); BUN 16 mg/dL (7-18); CO2 28.2 mmol/L (21.0-32.0); CREATININE 1.1 mg/dL (0.70-1.30); Calculated LDL 92 mg/dL (<100); Chloride 104 mmol/L (98-107); Cholesterol 182 mg/dL (<200); Estimated GFR 72.67 (mL/min/1.73m2); Glucose 106 mg/dL (74-106); HDL Cholesterol 66 mg/dL (40-60); Potassium 3.8 mmol/L (3.5-5.1); Sodium 141 mmol/L (136-145); Total Protein 6.7 g/dL (6.4-8.2); Triglyceride 124 mg/dL (<150)
[2023-09-19 15:31] LABS: Lab Add On Test DONE
[2023-09-19 16:05] LABS: Bilirubin, Direct 0.3 mg/dL (0.0-0.2)
[2023-09-19 23:15] LABS: HIV-1/2 Ag & Ab Screen Negative (Negative)
[2023-09-19 23:18] LABS: Hepatitis C Ab w Rflx HCV PCR Negative (Negative)
== END 2023-09-19 09:17 | disposition home or self-care (01) ==
LOC: LBN 09:16
PROVIDERS: PCP Nurse Practitioner Family; Visit Provider Nurse Practitioner Family
DX: E78.00 Pure hypercholesterolemia, unspecified (principal); R73.03 Prediabetes; R74.8 Abnormal levels of other serum enzymes; Z11.4 Encounter for screening for human immunodeficiency virus [HIV]; Z11.59 Encounter for screening for other viral diseases
CPT/HCPCS: 80053; 80061; 86803; 87389; 82248; 83036

== ENCOUNTER → 2023-10-10 00:52 | Outpatient (CLI) | payer MEDICARE, OTHER, SELFPAY ==
--- NOTE | 2023-10-10 08:30 | DI.US_ITS ---
APPROVED REPORT EXAM: Comprehensive 2D, Doppler, and color-flow Echocardiogram Patient Location: Out-Patient Roller Helper: Barrera Castañeda RDCS (AE) Indications: New murmur Echo Enhancing Agent Indication: Endocardial border delineation Agent(s) / Amount(s) Used: Definity 2.0 cc Comments: Contrast study was performed with 1 IV injection of 2cc of diluted definity. Other Information Study Quality: Adequate. Technically limited study due to body habitus. Conclusion Normal left ventricular wall thickness and chamber size. Ejection fraction is 65%. Wall motion is n ormal Normal right ventricular size and function Both atria are mildly enlarged Aortic valve is sclerotic and trileaflet without stenosis or regurgitation Mild mitral annular calcification. No mitral regurgitation Estimated right ventricular systolic pressure is 14 mmHg Ascending aorta measures 3.61 cm Wall motion Left Ventricle The left ventricle is normal size. The left ventricular systolic function is normal. The left ventric ular ejection fraction is within the normal range. There is normal left ventricular wall thickness. T here is normal LV segmental wall motion. There is no ventricular septal defect visualized. LVEF is 65 %. Right Ventricle The right ventricle is normal size. Right ventricular systolic function is grossly normal. Atria Left atrium is mildly dilated. Right atrium is mildly dilated. The interatrial septum is intact with no evidence for an atrial septal defect. Aortic Valve The Aortic valve is sclerotic. There is no aortic valvular stenosis. No aortic regurgitation is prese nt. Mitral Valve Mitral valve leaflets are mildly thickened. Mild mitral annular calcification. No evidence of mitral valve stenosis. Tricuspid Valve The tricuspid valve is normal in structure. There is no tricuspid valve stenosis. Trace tricuspid reg urgitation. The RVSP is 13.7 mmHg. Pulmonic Valve The pulmonary valve is normal in structure. There is no pulmonic valvular stenosis. There is no pulmo star valvular regurgitation. Great Vessels The aortic root is normal in size. The ascending aorta is mildly dilated. Aortic arch is not well vis ualized. IVC is normal in size and collapses >50% with inspiration. Pericardium There is no pericardial effusion. 2D Dimensions IVSD d PLAX 1.09 cm M: 0.6-1.2 Ao Root d 3.68 cm M: 3.1 - 3.7 LVPW d PLAX 1.08 cm M: 0.6 - 1.2 Ao Asc Diam d 3.61 cm M: 2.6 - 3.4 LVID d PLAX 5.42 cm M: 4.2 - 5.8 LVDs 3.42 cm M: 2.5 - 4.0 LV EF Teichholz 66.4 % FS 37.00 % LV EDV (Teich) 142.8 mL LV ESV (Teich) 48.0 mL Stroke Vol Index (Teich) 35.37 M-Mode TAPSE 2.62 cm (M/F) >1.7 LV Volumes - Method of Disks (Brandon's) Single Plane 2D LV Volumes Biplane 2D LV Volumes LV EDV A4C 84.7 mL LV EDV BP 92.67 mL M: 62 - 150 LV ESV A4C 27.7 mL LV ESV BP 29.4 mL LVEF(%) A4C 67.3 % LVEF(%) BP 68.26 % M: 52 - 72 LV EDV A2C 96.2 mL LV EDV BP Index 34.57 mL/m2 M: 34 - 74 LV ESV A2C 32.4 mL SV BP LVEF(%) A2C 66.3 % SV Index LA Volume LA Length A4C 4.6 cm LA Length A2C 5.5 cm LA Area A4C s 13.60 cm2 LA Area A2C s 19.46 cm2 LA Vol A4C A-L 34.29 mL LA Vol A2C A-L 58.38 mL LA Vol Biplane A-L 49.0 mL LA Vol/BSA A4C A-L LA Vol/BSA A2C A-L LA Vol/BSA BP A-L 18.3 mL/m2 LA Vol A4C MOD 33.2 mL LA Vol A2C MOD 54.4 mL LA Vol BP MOD 45.9 mL RA Volume RA Area A4C 11.4 cm2 RA ESV A4C (A-L) 28.9mL RA Vol/BSA A4C A-L RA Length A4C 3.8 cm RA ESV A4C (MOD) 27.4mL LV Diastology MV E' medial 0.085 (>0.07 m/s) MV E Vmax 1.17 (0.4-1.3 m/s) MV E/E' MED 13.82 (<14) MV A Vmax 1.15 (0.4-1.3 m/s) MV E' lateral 0.113 (>0.1 m/s) E/A Ratio 1.0 MV E/E' LAT 10.40 (<14) MV E' Average 0.099 m/s MV E/E'(average) 11.87 Aortic Valve AoV Vmax 1.56 m/s LVOT Vmax 1.12 m/s AoV Peak Grad 9.7 mmHg LVOT Peak Grad 5.1 mmHg AoV Area (Vmax) 2.40 cm2 LVOT VTI 0.277 m AoV VTI 0.336 m LVOT Mean Grad 2.6 mmHg AoV Mean [place]. 1.07 m/s LVOT SV 92.21 mL AoV Mean Grad 5.2 mmHg LVOT Diam s 2.05 cm AoV Area (VTI) 2.75 cm2 Velocity Ratio 0.72 Mitral Valve MV DT 197 (160-240 msec) Pulmonary Valve PV Vmax 1.25 (0.5-1.5 m/s) RVOT Vmax 0.84 m/s PV Peak Grad 6.3 mmHg RVOT Peak Gr. 2.9 mmHg PV Mean [place] 0.95 m/s RVOT VTI 0.172 m PV Mean Grad 3.9 mmHg RVOT Mean Gr. 1.6 mmHg Tricuspid Valve RA Pressure 3.00 mmHg TR Vmax 1.63 m/s TR Peak Grad 10.6 mmHg RVSP (TR) 13.7 mmHg
[2023-10-10] MEDS: Perflutren Lipid Microspheres 1.5 ML VIAL IVP (10:07)
== END ==
PROVIDERS: PCP Nurse Practitioner Family; Visit Provider Nurse Practitioner Family
DX: R01.1 Cardiac murmur, unspecified (principal)
CPT/HCPCS: 93306; C8929

== ENCOUNTER 2023-11-17 07:42 | Day surgery (SDC) | payer MEDICARE, OTHER, SELFPAY ==
--- NOTE | 2023-11-16 18:59 | PDOC.DSDIS_ITS ---
Date of service: 11/17/23 Time of Service: 09:37 Discharge Plan Disposition Patient Disposition: Home Condition: Good Discharge Details Reason For Visit: screening colonoscopy Attending Provider: Darien Harman Primary Care Provider: Ronn Gibson Home Meds and New Rx's Prescriptions: Continued losartan 100 mg tablet 100 mg PO DAILY Qty: 90 3RF chlorthalidone 25 mg tablet 25 mg PO DAILY Qty: 90 3RF atorvastatin 20 mg tablet See Rx Instructions .ROUTE .COMPLEX Qty: 90 3RF Dose Instruction: TAKE 1 TABLET EVERY EVENING Rx Instructions: TAKE 1 TABLET EVERY EVENING amlodipine 5 mg tablet See Rx Instructions .ROUTE .COMPLEX Qty: 90 3RF Dose Instruction: TAKE 1 TABLET DAILY Rx Instructions: TAKE 1 TABLET DAILY Discontinued bisacodyl [Dulcolax (bisacodyl)] 5 mg tablet,delayed release (DR/EC) 5 mg PO ONCE Qty: 4 0RF Rx Instructions: Take per colonoscopy instructions provided by ordering providers office polyethylene glycol 3350 17 gram/dose powder 17 g PO ONCE Qty: 238 0RF Rx Instructions: Take per colonoscopy instructions provided by ordering providers office Discharge Instructions Instructions: Colon polyps, Diverticulosis, High-fiber diet Additional Instructions: Bill, we are able to complete your colonoscopy today without any issues. I did find and remove for polyps today. All were quite small, and none of them appear worrisome. All will be sent off for testing, and once I know the nature of these polyps, I will be in touch with recommendations regarding the timing of your next colonoscopy. Incidentally, you also have some diverticulosis. Dive rticula are little weak spots in the muscular portion of the colon wall. They typically occur as we age. Maintaining a diet that is rich in fiber, staying well-hydrated, and avoiding constipation's are the mainstays of therapy. I provided some basic information here about colon polyps as well as diverticular disease. As I mentioned, once the polyp results are available the office will be in touch. In the meantime, if you need anything at all or have any questions just let us know. 1. If tolerated, consume a soft, low fiber diet for 1-2 days. 2[address] Do not drive, drink alcohol, operate machinery, make critical decisions, or do activities that require coordination or balance for 24 hours. 3. Because air was put into your colon during the procedure, expelling air from your rectum (passing gas or farting) is normal. 4. You may not have a bowel movement for 1-3 days because of the colonoscopy prep. This is normal. 5. Go directly to the emergency room if you notice any of the following: Develop chills (warm to touch), or if you have a thermometer and your temperature is above 101 Difficulty breathing or difficultly swallowing Persistent vomiting Severe abdominal pain, other than gas cramps Severe chest pain Black, tarry stools Any bleeding ? exceeding one tablespoon 6. Call your physician if the site where your intravenous was started becomes red, swollen, painful, and warm to touch. 7. Your physician has reviewed your pre-procedure medications. Please continue to take those medications as previously ordered. You will be given specific information/education regarding any changes to your medications before leaving. Activity:: Activity as Tolerated Diet:: As Tolerated Discharge Orders Discharge Orders: Discharge Order (Routine); Ordered 11/16/23 Ordered By: Darien Harman DS: Diagnosis Discharge Diagnosis (1) Encounter for screening colonoscopy: Status: Acute Asessment and Plan: Follow-up on polypectomy results
--- NOTE | 2023-11-16 19:00 | W.PREOPHP ---
Assessment and Plan Assessment and plan (1) Encounter for screening colonoscopy: Status: Acute Assessment and plan: we reviewed the plan for a screening colonoscopy and the risks and the benefits of the procedure. Remy had the chance to ask any questions about the procedure and he was able to provide informed consent for colonoscopy as planned. History of Present Illness History of Present Illness Chief Complaint: screening colonoscopy Narrative: 67 y/o male with history of morbid obesity, HTN, prediabetes and irregular heart beat presents for colonoscopy screening pre-op. His last screening was in 2017, which was remarkable for sigmoid diverticulosis. He denies a family history of colon cancer. He denies any changes in bowel habits including bloody or black tarry stools, abdominal pain, diarrhea or constipation. He denies constitutional symptoms. He denies chest pain, palpitations, dyspnea or dyspnea with exertion. He denies prior history or family history of adverse reactions or complications with anesthesia. The patient denies any history of stroke, IA, seizures, bleeding or clotting disorders. He reports having metal implanted in his left knee. At his last office visit, he was found of a new cardiac murmur. He underwent echocardiogram that demonstrated some trace pulmonic mitral valve regurgitation, with no other concerning findings. Otherwise, but there have been no significant interval changes to the history or physical. [facility] All Active Problems Encounter for screening colonoscopy (Acute) Elevated liver enzymes (Acute) Heart murmur (Acute) Essential tremor (Acute) Laceration of right upper arm (Acute) Status post total left knee replacement (Acute) Rupture of left quadriceps tendon (Acute) medial partial, distal Irregular heart beat (Acute) Bradycardia (Acute) Prediabetes (Acute) 10/2020- A1c- 5.7 Polyp of colon (Acute) Psoriasis (Chronic) 10/11/11 Morbid obesity (Chronic) Hypercholesterolemia (Chronic) Essential hypertension (Chronic) Medical History Entrapment of left ulnar nerve Urinary retention due to benign prostatic hyperplasia Painful total knee replacement, left Strain of left quadriceps BPH w urinary obs/LUTS (10/24/17) Obesity HTN (hypertension) Surgical History S/P TURP H/O total knee replacement 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 Injection: 12/23/19, 03/16/2020 Repair of umbilical hernia 08/28/2007 & 09/04/2009 Excision, Lipoma (07/12/09) deep left gluteus Colonoscopy - MAC (09/23/16) 07/22/08 05/05/13 Cholecystectomy (08/28/07) Family History Mother , 94 Essential hypertension Heart disease BAD HEART VALVE Hyperlipidemia Father , 85 Diabetes Essential hypertension Heart disease Hyperlipidemia Myocardial infarction Sister No problems noted. Brother No problems noted. Son No problems noted. Son No problems noted. Step daughter No problems noted. Family History Essential hypertension Hyperlipidemia Social History Smoking/Tobacco Use Status: Never Second Hand Exposure: Yes Smoking risk assessment performed?: Yes Alcohol Intake: current Alcohol Intake frequency: a few times a week Alcohol type: hard liquor Drug use: Never Substance use type: does not use Caregiver/Support person: No Household members: spouse Housing: house Communication Needs: Corrective Lenses Do you need help understanding health information?: Never Pets and animals: No Sexually active: Yes Do you think of yourself as: straight/heterosexual Current gender identity: male What is your relationship status?: How often do you talk on the phone with friends or family?: twice per week How often do you get together with friends or relatives?: twice per week How often do you attend scientology or adventism services?: 1-3 times per year Do you belong to any clubs or organized social groups?: yes Panel score (0-1 are the most socially isolated patients): 3 What type of physical activity do you participate in: walking Duration: 15-30 minutes/day Frequency: 5-6 times per week Kalyani/Episcopalian: Taoism Special kalyani needs: No Seatbelt use: always Drive intox or ride w/intox cdl b driver: No Do you feel safe at home: Yes Do you feel safe in your relationship?: Yes Meds Allergies and Home Medications Allergies Allergy/AdvReac Type Severity Reaction Status Date / Time No Known Allergies Allergy Verified 11/17/23 08:09 Home Medications Medication Instructions Recorded Confirmed Type chlorthalidone 25 mg tablet 25 mg PO DAILY #90 tab-caps 01/29/23 11/17/23 Rx losartan 100 mg tablet 100 mg PO DAILY #90 tab-caps 01/29/23 11/17/23 Rx amlodipine 5 mg tablet See Rx Instructions .Route 04/23/23 11/17/23 Rx .COMPLEX #90 tabs atorvastatin 20 mg tablet See Rx Instructions .Route 04/23/23 11/17/23 Rx .COMPLEX #90 tabs Exam Const General: cooperative, healthy appearing and not in acute distress Neck Neck: normal visual inspection, no lymphadenopathy and supple Resp Effort & Inspection: normal respiratory effort Auscultation: clear to auscultation bilaterally Cardio Jugular venous pressure: no JVD Rate: regular rate Rhythm: regular rhythm Heart Sounds: S1 normal and S2 normal GI Inspection: normal to inspection Palpation: soft, no guarding, no hernias and nontender Percussion: normal to percussion Auscultation: normal bowel sounds Neuro General: patient alert, patient awake and patient oriented x3 Psych Appearance: grossly normal
--- NOTE | 2023-11-16 19:02 | W.COLOREPORT ---
Date of service: 11/17/23 Time of Service: 09:39 Colonoscopy Report Date of procedure: 11/17/23 Pre-op diagnosis general: screening colonoscopy Post-op diagnosis procedure note: other (Diverticulosis, colon polyps) Procedure: colonoscopy Surgeon: Darien Harman Anesthesia Type: General:No Airway Estimated blood loss (mL): 5 Pathology: other (0.25 cm rectal polyp, 0.25 cm cecal polyp, 0.5 cm polyp at 65 cm, 0.5 cm polyp at 35 cm) Complications: None Disposition: same day Indications: Remy is a 68 year old man who needs a screening colonoscopy Prep: Miralax/Dulcolax Procedure Start Time: 09:12 Procedure End Time: 09:30 Retraction Time: 11 Findings: Diverticulosis; 0.25 cm rectal polyp, 0.25 cm cecal polyp, 0.5 cm polyp at 65 cm, 0.5 cm polyp at 35 cm Procedure Description: After the induction of anesthesia, and with the patient in left lateral decubitus position, I began by performing an external anorectal exam.? Perineum and skin were normal, as was the anal verge.? There was no evidence of external hemorrhoids.? Next, I performed a digital rectal exam.? I did not appreciate any abnormal findings.? Next, I advanced a colonoscope into the rectal vault.? I performed retroflexion.? There is a 0.25 cm slightly pedunculated polyp at the bottom portion of the rectal vault. This was removed with cold forceps and retroflexion. There was minimal bleeding..? Using insufflation, I then advanced the colonoscope beyond the rectal folds and into the sigmoid colon before advancing towards the cecum. The scope was noted to be in the cecum by identification of the ileocecal valve and appendiceal orifice.? There was a 0.25 cm flat polyp in the cecum that was also removed with cold forceps. I then began withdrawing the colonoscope using repeated irrigation as necessary for full evaluation of the colonic mucosa. Around 65 cm from the anal verge I identified a 0.5 cm polyp. ?It appeared flat in character. ?I was able to remove this with a cold forcep polypectomy in piecemeal. ?I examined the site, and there was minimal bleeding. ?Once this was completed, I continued to withdraw the scope and examine the remainder of the colonic mucosa.? Another small polyp around 0.25 cm was found at 35 cm from the anus. This was also mostly flat in character. This was retrieved with cold forceps. Once the scope was withdrawn to the level of the rectum, great care was taken to examine portions of the rectal folds.? Finally, the scope was withdrawn and the patient was brought to the same-day surgery recovery unit as the anesthetic wore off. ?The findings and instructions were shared with the patient prior to discharge. Johnston Bowel Prep Johnston Bowel Prep Right Colon: 3 Left Colon: 3 Transverse Colon: 3 Total Score: 9
[2023-11-17 07:50] VITALS: BP 138/79; PULSE 71; RESP 20; TEMP 36.4; O2SAT 96
--- NOTE | 2023-11-17 08:16 | W.ANESPRE ---
General Info Date of Service Date Performed: 11/17/23 Height: 5 ft 11 in Weight: 159.835 kg Body Mass Index (BMI): 49.1 Surgical Procedure: Operation Date: 11/17/23 09:50 Proposed Procedure Side Surgeon p Krystal Harman MD Meds Allergies and Home Medications Allergies Allergy/AdvReac Type Severity Reaction Status Date / Time No Known Allergies Allergy Verified 11/17/23 08:09 Home Medication Medication Instructions Recorded chlorthalidone 25 mg tablet 25 mg PO DAILY #90 tab-caps 01/29/23 losartan 100 mg tablet 100 mg PO DAILY #90 tab-caps 01/29/23 amlodipine 5 mg tablet See Rx Instructions .Route 04/23/23 .COMPLEX #90 tabs atorvastatin 20 mg tablet See Rx Instructions .Route 04/23/23 .COMPLEX #90 tabs Current Visit Medications: Current Medications Generic Name Dose Route Start Last Admin Trade Name Freq PRN Reason Stop Dose Admin Hyoscyamine Sulfate 0.125 mg 11/16/23 19:03 Hyoscyamine 0.125 Mg Sl/Oral/Chew SL 12/16/23 19:02 DIRECTED PRN Ringer's Solution 1,000 mls @ 80 mls/hr 11/17/23 06:00 IV 12/14/23 23:59 INFUSION FOR[facility]LY [facility] IV Miscellaneous Supplies 1 each 11/17/23 06:00 Iv Access IV 12/14/23 23:59 DIRECTED ESAU Ondansetron HCl 4 mg 11/16/23 19:03 Ondansetron 4 Mg/2 Ml Vial IVP 12/16/23 19:02 Q4H PRN PRN Nausea / Vomiting Sodium Chloride 0 ml 11/17/23 06:00 Normal Saline Flush 10 Ml Syr IV 12/14/23 23:59 PRN PRN Sodium Chloride 0 ml 11/17/23 06:00 Normal Saline 10 Ml Vial IJ 12/14/23 23:59 DIRECTED PRN Sterile Water 0 ml 11/17/23 06:00 Water,Injection,Sterile 10 Ml Vial IJ 12/14/23 23:59 DIRECTED PRN PFSH Active Problems Active Problems: Problem Status Onset Code Encounter for screening colonoscopy Z12.11 Elevated liver enzymes R74.8 Heart murmur R01.1 Essential tremor G25.0 Laceration of right upper arm S41.111A Status post total left knee replacement Z96.652 Rupture of left quadriceps tendon S76.112A Irregular heart beat I49.9 Bradycardia R00.1 Prediabetes R73.03 Polyp of colon K63.5 Psoriasis L40.9 Morbid obesity E66.01 Hypercholesterolemia E78.00 Essential hypertension I10 Medical History Medical History Entrapment of left ulnar nerve Urinary retention due to benign prostatic hyperplasia Painful total knee replacement, left Strain of left quadriceps BPH w urinary obs/LUTS (10/24/17) Obesity HTN (hypertension) Surgical History Surgical History S/P TURP H/O total knee replacement 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 Injection: 12/23/19, 03/16/2020 Repair of umbilical hernia 08/28/2007 & 09/04/2009 Excision, Lipoma (07/12/09) deep left gluteus Colonoscopy - MAC (09/23/16) 07/22/08 05/05/13 Cholecystectomy (08/28/07) Tobacco Smoking/Tobacco Use Status: Never Passive smoking exposure: No Second hand exposure: Yes Alcohol Alcohol Intake: current Alcohol intake frequency: a few times a week Alcohol type: hard liquor Substance Use Substance use: Never Substance use type: does not use Vital Signs and Lab Results Lab Results Blood Type / Crossmatch: No Data to Display Complete Blood Count: No Data to Display Complete Metabolic Panel: No Data to Display Liver Function Panel: No Data to Display Coagulation Panel: No Data to Display Cardiac Panel: No Data to Display Arterial Blood Gas: No Data to Display Venous Blood Gas: No Data to Display Pancreas Panel: No Data to Display Thyroid Panel: No Data to Display Infectious Disease: No Data to Display Blood Cultures: No Data to Display Toxicology Panel: No Data to Display Imaging and Studies Imaging and Studies Study information below may be from another EMR and interpreted by another provider. Please see original notes in EMR for more complete details. EKG Summary: DATE/TIME OF SERVICE: 04/06/21 1351 : 4PERFORMING LOCATION: [facility] APPROVED REPORT Exam: Resting ECG Reason for Exam: htn Patient Location: O HR:89 bpm ECG Measurements Heart Rate 89 AXIS FL 183 P 9 QRSd 159 QRS -70 QT 411 T29 QTc 480 Conclusion Sinus rhythm...normal P axis, V-rate 60- 99 RBBB and LAFB...QRSd >120mS, axis(-40,240) Stress Test Summary: Date of study: 09/24/2017 *PATIENT PRESENTATION* Height: 180.3cm (71in) Blood Pressure: Weight: 164.5kg (362lb) BSA: 2.96m^2 Referring physician: Dillon Lozoya Ordering physician: Kenyon Kessler Impressions: Normal myocardial perfusion and contraction after pharmacological stress. Summary: 1. Myocardial perfusion imaging: No myocardial perfusion defects noted. 2. The calculated left ventricular ejection fraction after stress: 53%. LV global systolic function is normal. No left ventricular regional motion abnormality. Echocardiogram Summary: Patient Name: Remy Brandon Unit #: [id number] Loc: Ordering Provider: Ronn Gibson HERBOLOGIST Status: REG [facility] Primary Care Provider: Ronn Gibson NP Date of Exam: 10/10/23 Sex: M Admission Date: 10/10/23 : 1955 Age: 67 APPROVED REPORT EXAM: Comprehensive 2D, Doppler, and color-flow Echocardiogram Patient Location: Out-Patient Demonstrator Sales: Barrera Castañeda RDCS (AE) Indications: New murmur Echo Enhancing Agent Indication: Endocardial border delineation Agent(s) / Amount(s) Used: Definity 2.0 cc Comments: Contrast study was performed with 1 IV injection of 2cc of diluted definity. Other Information Study Quality: Adequate. Technically limited study due to body habitus. Conclusion Normal left ventricular wall thickness and chamber size. Ejection fraction is 65%. Wall motion is normal Normal right ventricular size and function Both atria are mildly enlarged Aortic valve is sclerotic and trileaflet without stenosis or regurgitation Mild mitral annular calcification. No mitral regurgitation Estimated right ventricular systolic pressure is 14 mmHg Ascending aorta measures 3.61 cm Wall motion Left Ventricle The left ventricle is normal size. The left ventricular systolic function is normal. The left ventricular ejection fraction is within the normal range. There is normal left ventricular wall thickness. There is normal LV segmental wall motion. There is no ventricular septal defect visualized. LVEF is 65%. Right Ventricle The right ventricle is normal size. Right ventricular systolic function is grossly normal. Atria Left atrium is mildly dilated. Right atrium is mildly dilated. The interatrial septum is intact with no evidence for an atrial septal defect. Aortic Valve The Aortic valve is sclerotic. There is no aortic valvular stenosis. No aortic regurgitation is present. Mitral Valve Mitral valve leaflets are mildly thickened. Mild mitral annular calcification. No evidence of mitral valve stenosis. Tricuspid Valve The tricuspid valve is normal in structure. There is no tricuspid valve stenosis. Trace tricuspid regurgitation. The RVSP is 13.7 mmHg. Pulmonic Valve The pulmonary valve is normal in structure. There is no pulmonic valvular stenosis. There is no pulmonic valvular regurgitation. Great Vessels The aortic root is normal in size. The ascending aorta is mildly dilated. Aortic arch is not well visualized. IVC is normal in size and collapses >50% with inspiration. Pericardium There is no pericardial effusion. 2D Dimensions IVSD d PLAX 1.09 cm M: 0.6-1.2Ao Root d 3.68 cm M: 3.1 - 3.7 LVPW d PLAX 1.08 cm M: 0.6 - 1.2Ao Asc Diam d 3.61 cm M: 2.6 - 3.4 LVID d PLAX 5.42 cm M: 4.2 - 5.8 LVDs 3.42 cm M: 2.5 - 4.0 LV EF Teichholz 66.4 % FS37.00 % LV EDV (Teich)142.8 mL LV ESV (Teich)48.0 mL Stroke Vol Index (Teich)35.37 M-Mode TAPSE 2.62 cm (M/F) >1.7 LV Volumes - Method of Disks (Brandon's) Single Plane 2D LV VolumesBiplane 2D LV Volumes LV EDV A4C84.7 mLLV EDV BP92.67 mL M: 62 - 150 LV ESV A4C27.7 mLLV ESV BP29.4 mL LVEF(%) A4C67.3 %LVEF(%) BP68.26 % M: 52 - 72 LV EDV A2C96.2 mLLV EDV BP Index34.57 mL/m2 M: 34 - 74 LV ESV A2C32.4 mLSV BP LVEF(%) A2C66.3 %SV Index LA Volume LA Length A4C4.6 cmLA Length A2C5.5 cm LA Area A4C s 13.60 cm2LA Area A2C s 19.46 cm2 LA Vol A4C A-L34.29 mLLA Vol A2C A-L58.38 mLLA Vol Biplane A-L49.0 mL LA Vol/BSA A4C A-LLA Vol/BSA A2C A-LLA Vol/BSA BP A-L 18.3 mL/m2 LA Vol A4C MOD33.2 mLLA Vol A2C MOD54.4 mLLA Vol BP MOD45.9 mL RA Volume RA Area A4C11.4 cm2RA ESV A4C (A-L)28.9mLRA Vol/BSA A4C A-L RA Length A4C3.8 cmRA ESV A4C (MOD)27.4mL LV Diastology MV E' medial0.085 (>0.07 m/s)MV E Vmax 1.17 (0.4-1.3 m/s) MV E/E' MED13.82 (<14)MV A Vmax 1.15 (0.4-1.3 m/s) MV E' lateral0.113 (>0.1 m/s)E/A Ratio 1.0 MV E/E' LAT10.40 (<14) MV E' Average0.099 m/s MV E/E'(average)11.87 Aortic Valve AoV Vmax1.56 m/sLVOT Vmax 1.12 m/s AoV Peak Grad9.7 mmHgLVOT Peak Grad 5.1 mmHg AoV Area (Vmax)2.40 io2NOAL VTI0.277 m AoV VTI0.336 mLVOT Mean Grad 2.6 mmHg AoV Mean [place].1.07 m/sLVOT SV 92.21 mL AoV Mean Grad5.2 mmHgLVOT Diam s 2.05 cm AoV Area (VTI)2.75 cm2 Velocity Ratio 0.72 Mitral Valve MV DT 197 (160-240 msec) Pulmonary Valve PV Vmax 1.25 (0.5-1.5 m/s)RVOT Vmax 0.84 m/s PV Peak Grad 6.3 mmHgRVOT Peak Gr.2.9 mmHg PV Mean Vel0.95 m/sRVOT VTI0.172 m PV Mean Grad 3.9 mmHgRVOT Mean Gr.1.6 mmHg Tricuspid Valve RA Pressure 3.00 mmHgTR Vmax 1.63 m/s TR Peak Grad 10.6 mmHg RVSP (TR) 13.7 mmHg Ordered By: Ronn Gibson NP CC: Dictated By: Rosalba Paris M.D. 10/10/23 0958 <Electronically signed by Rosalba Paris M.D. in OV> 10/10/23 1115 Transcribed By: Rosalba Paris MD 10/10/23 0958 This is privileged, confidential information intended only for the provider named. Any use or distribution by any person other than this provider is strictly prohibited. If you receive this report in error, please notify us immediately at [phone] and return the original report to us at the address above. Thank-you. Anesthesia Assessment and Plan Anesthesia History Personal History: No History of Anesthesia Complications Family History: No Family History of Anesthesia Complications Exercise Tolerance Exercise Tolerance: Metabolic Equivalents>4 Pertinent Negatives Pertinent Negatives: No Symptoms of GERD, No Major Pulmonary Symptoms or Complaints and No History of CVA/TIA Cardiac & Pulmonary Exam Cardiac Exam: Normal S1/S2 Heart Sounds Pulmonary Exam: Clear Bilateral Breath Sounds Implantable Cardiac Device Does patient have a Pacemaker or an ICD?: No Airway Exam Known Difficult Airway: No Mallampati Class: 2 Mouth Opening: Normal (> 3cm) Thyromental Distance: Greater than 3 cm Neck Range of Motion: Limited ROM Neck Circumference: Thick Teeth Condition: Normal Dentition ASA Classification ASA Score: ASA 3 Emergency Case?: No NPO Status NPO Status: NPO Clears >2 hours, Solids >8 hours Anesthesia Plan Resuscitation Status: Full Code Anesthesia Technique: General Anesthesia Airway Planned: Natural Airway Monitors Used: Standard Monitors
[2023-11-17] MEDS: Lactated Ringers 1,000 ML 80 ML IV (08:25)
[2023-11-17 08:59] VITALS: BMI 49.1
--- NOTE | 2023-11-17 09:14 | BOWEL_PTH ---
PATIENT: Remy Brandon LOC: [facility] U#:[id number] AGE/SX: 68/M ROOM: RE11/17/[address]: Darien Harman MD : 1955 BED: DIS: 11/17/2023 SPEC #: [id number] RECD: 11/17/23 12:52 STATUS: JODIE RE #: [id number] TC: 11/17/23 09:[address]: Darien Harman DEPT: Surgical Specimen RECD BY: Vandana Reed ENTERED: 11/17/23 12:53 SP TYPE: Bowel OTHR DR: Ronn Cano DNP Tissues: 1 - BIOPSY BOWEL 2 - BIOPSY BOWEL 3 - BIOPSY BOWEL 4 - BIOPSY BOWEL Procedures: GROSS AND MICRO LEVEL 4 Comments: [id number]
[2023-11-17 09:35] VITALS: BP 118/68; PULSE 70; RESP 18; TEMP 36.6; O2SAT 93
--- NOTE | 2023-11-17 09:50 | W.ANESPOSTOP ---
Postoperative Evaluation Date, Time and Location Date Performed: 11/17/23 Time Performed: 09:50 Patient Location: Day Surgery Unit Vital Signs Most Recent Imported Vital Signs: Most Recent Vital Signs Temp Pulse Resp BP Pulse Ox 36.6 C 70 18 118/68 93 11/17/23 09:35 11/17/23 09:35 11/17/23 09:35 11/17/23 09:35 11/17/23 09:35 Pain Score Most Recent Pain Score: Most Recent Pain Score Pain Level 0 11/17/23 07:50 Assessment Mental Status: Awake (Alert & Oriented to Patient Baseline) Airway and Respiratory Function: Patent airway with normal (patient baseline) respiratory exam Cardiovascular Function: Hemodynamically Stable Hydration Status: Adequately Hydrated Nausea & Vomiting: No Nausea or Vomiting Pain: Pt. Denies Any Pain Peripheral Nerve Block: Patient did not receive a nerve block
[2023-11-17 10:00] VITALS: BP 133/78; PULSE 63; RESP 18; TEMP 36.7; O2SAT 98
== END 2023-11-17 10:10 | disposition home or self-care (01) ==
LOC: SUR 07:42
PROVIDERS: PCP Nurse Practitioner Family; Visit Provider Surgery
PROC: 0DJD8ZZ Inspection of Lower Intestinal Tract, Via Natural or Artificial Opening Endoscopic (ICD-10-PCS; CPT 45378; principal; 2023-11-17 09:45)
DX: Z12.11 Encounter for screening for malignant neoplasm of colon (principal); R01.1 Cardiac murmur, unspecified; I10 Essential (primary) hypertension; K57.30 Diverticulosis of large intestine without perforation or abscess without bleeding; D12.0 Benign neoplasm of cecum; D12.8 Benign neoplasm of rectum; D12.4 Benign neoplasm of descending colon; D12.5 Benign neoplasm of sigmoid colon
CPT/HCPCS: 45380; 88305; J2704

== ENCOUNTER 2024-09-24 08:49 | Outpatient (CLI) | payer MEDICARE, OTHER, SELFPAY ==
--- NOTE | 2024-09-24 08:45 | RT.EKG_ITS ---
APPROVED REPORT Exam: Resting ECG Reason for Exam: occasional dizziness Patient Location: O HR:87 bpm ECG Measurements Heart Rate 87 AXIS TN 171 P 20 QRSd 162 QRS -71 QT 445 T 11 QTc 536 Conclusion Sinus rhythm...normal P axis, V-rate 50- 99 Ventricular bigeminy...bigeminy string>4 w/ V complexes RBBB and LAFB...QRSd >120mS, axis(-40,240)
== END 2024-09-24 08:50 | disposition home or self-care (01) ==
LOC: DI.CM 08:50
PROVIDERS: PCP Nurse Practitioner Family; Visit Provider Nurse Practitioner Family
DX: I49.9 Cardiac arrhythmia, unspecified (principal); R00.1 Bradycardia, unspecified
CPT/HCPCS: 93010

== ENCOUNTER 2024-09-24 09:21 | Outpatient (CLI) | payer MEDICARE, OTHER, SELFPAY ==
[2024-09-24 12:40] LABS: Hemoglobin A1C 5.5 % (<5.7)
[2024-09-24 12:56] LABS: ALT 40 U/L (16-63); AST 29 U/L (15-37); Albumin 3.7 g/dL (3.4-5.0); Alkaline Phosphatase 119 U/L (46-116); Anion Gap 8.3 mmol/L (3-11); BUN 25 mg/dL (7-18); Bilirubin, Total 1.9 mg/dL (0.2-1.0); CO2 29.7 mmol/L (21.0-32.0); CREATININE 1.1 mg/dL (0.70-1.30); Calcium 9.2 mg/dL (8.5-10.1); Calculated LDL 99 mg/dL (<100); Chloride 103 mmol/L (98-107); Cholesterol 186 mg/dL (<200); Estimated GFR 72.22 (mL/min/1.73m2); Glucose 97 mg/dL (74-106); HDL Cholesterol 67 mg/dL (>or=40); Potassium 3.7 mmol/L (3.5-5.1); Sodium 141 mmol/L (136-145); Total Protein 7.1 g/dL (6.4-8.2); Triglyceride 103 mg/dL (<150)
[2024-09-24 19:41] LABS: HBs Antibody, Quant <3.1 mIU/mL (See Note); Hep B Surface Ab Negative (See Note); Hepatitis B Core Antibody Negative (Negative); Hepatitis B Surface Antigen Negative (Negative)
== END 2024-09-24 09:22 | disposition home or self-care (01) ==
PROVIDERS: PCP Nurse Practitioner Family; Referring Provider Nurse Practitioner Family; Visit Provider Nurse Practitioner Family
DX: E78.00 Pure hypercholesterolemia, unspecified (principal); Z11.59 Encounter for screening for other viral diseases; R73.03 Prediabetes
CPT/HCPCS: 36415; 80053; 80061; 86704; 86706; 87340; 83036

== ENCOUNTER 2024-11-11 11:16 | Outpatient (CLI) | payer MEDICARE, OTHER, SELFPAY ==
[2024-11-11 13:48] LABS: Anion Gap 8.5 mmol/L (3-11); BUN 24 mg/dL (7-18); CO2 29.5 mmol/L (21.0-32.0); CREATININE 1.2 mg/dL (0.70-1.30); Calcium 9.2 mg/dL (8.5-10.1); Chloride 103 mmol/L (98-107); Estimated GFR 64.65 (mL/min/1.73m2); Glucose 114 mg/dL (74-106); Potassium 3.8 mmol/L (3.5-5.1); Sodium 141 mmol/L (136-145)
== END 2024-11-11 11:17 | disposition home or self-care (01) ==
LOC: LOS 11:17
PROVIDERS: PCP Nurse Practitioner Family; Visit Provider Nurse Practitioner Family
DX: R74.8 Abnormal levels of other serum enzymes (principal)
CPT/HCPCS: 36415; 80048

== ENCOUNTER 2024-11-16 11:06 | Outpatient (CLI) | payer MEDICARE, OTHER, SELFPAY ==
--- NOTE | 2024-11-16 11:00 | RT.EKG_ITS ---
APPROVED REPORT Exam: Resting ECG Reason for Exam: chest pressure Patient Location: O HR:75 bpm ECG Measurements Heart Rate [address] 170 P 8 QRSd 158 QRS -76 QT 375 T 5 QTc 419 Conclusion Sinus rhythm...normal P axis, V-rate 50- 99 Ventricular bigeminy...bigeminy string>4 w/ V complexes RBBB and LAFB...QRSd >120mS, axis(-40,240)
== END 2024-11-16 11:07 | disposition home or self-care (01) ==
LOC: DI.CM 11:07
PROVIDERS: PCP Nurse Practitioner Family; Visit Provider Nurse Practitioner Family
DX: R07.89 Other chest pain (principal)
CPT/HCPCS: 93010

== ENCOUNTER 2024-11-16 12:17 | Observation (INO) | payer MEDICARE, OTHER, SELFPAY ==
[2024-11-16] VITALS (37 sets, daily range): BP systolic 111–161; BP diastolic 45–126; PULSE 38–91; RESP 14–31; TEMP 36.5–37.1; O2SAT 92–98
--- NOTE | 2024-11-16 12:15 | RT.EKG_ITS ---
APPROVED REPORT Exam: Resting ECG Reason for Exam: Chest Pain Patient Location: E HR:79 bpm ECG Measurements Heart Rate 79 AXIS HI [id number] P [id number] QRSd 161 QRS -85 QT 406 T 27 QTc 466 Conclusion Atrial fibrillation...? atrial activity Paired ventricular premature complexes...sequence of 2 V complexes RBBB and LAFB...QRSd >120mS, axis(-40,240) No Occlusion HI
--- NOTE | 2024-11-16 12:20 | ED.GENADUL_ITS ---
Discharge Plan Disposition Patient Disposition: Admit to [facility] Discharge Details Clinical Impression: Chest pressure, Ventricular bigeminy Primary Care Provider: Ronn Gibson ED Provider: Kenyon Caballero Home Meds and New Rx's Prescriptions: No Action chlorthalidone 25 mg tablet 12.5 mg PO DAILY losartan 100 mg tablet 100 mg PO DAILY Qty: 90 3RF amlodipine 5 mg tablet See Rx Instructions .ROUTE .COMPLEX Qty: 90 3RF Dose Instruction: TAKE 1 TABLET DAILY Rx Instructions: TAKE 1 TABLET DAILY atorvastatin 20 mg tablet See Rx Instructions .ROUTE .COMPLEX Qty: 90 3RF Dose Instruction: TAKE 1 TABLET EVERY EVENING Rx Instructions: TAKE 1 TABLET EVERY EVENING HPI General Date/Time Provider Initiated Documentation: 11/16/24 12:20 . HPI Narrative: MDM Broad differential of emergent causes of chest pain at this 69-year-old male with shortness of breath and chest pressure. ECG showing sinus rhythm with frequent PVCs in a pattern of ventricular bigeminy. No obvious ischemic findings. No trauma to chest to suggest pneumothorax. No unintentional weight gain to suggest acute heart failure. No fevers no coughing my suspicion low for pneumonia. No tearing quality to suggest aortic dissection. Will send a D- dimer to assess for PE. Patient is not hypotensive nor is a dialysis patient so my suspicion is low for tamponade. No rash to chest to suggest zoster. Patient received aspirin on arrival. Anticipate cardiology consultation with further risk stratification. Chest pain at rest concerning for unstable angina. 1:10 PM Initial troponin within limits. Reassuring lipase. Normal magnesium. Comprehensive metabolic panel with mild prior. Mild hyperbilirubinemia improved . No ALE. No acute electrolyte abnormalities. CBC lacks anemia thrombocytopenia and leukocytosis. Chest x-ray no acute cardiopulmonary processes. 4 PM No relief w/nitro. I Alessandra Mcclelland from cardiology at [facility]. She felt that the patient would benefit from a stress test and updated echocardiogram and the possibility of initiation of metoprolol tartrate initiation at 12.5 mg. Given the limited availability of beds at [facility] she was not certain that the patient would have a bed available to undergo stress testing at [facility] tomorrow. Given local availability of echo and stress testing on at [facility] she felt that cardiac monitoring trending troponins and updating an echocardiogram prior to stress testing would be beneficial. I met with the patient his and spoke to his son on speaker phone. Patient was amenable to staying locally. He received 2 g of magnesium. He was no longer having chest pain. I do not feel the patient requires an urgent left heart catheterization. In the absence of c hest pain and myocardial injury will defer heparinization. 4:55 PM I spoke with Dr. Dillard who graciously accepted the patient for local hospitalization. HEART SCORE Chest pain Diagnostic Protocol: [- History/Physical/Gestalt: Moderately Suspicious (+1)] [- EKG: Nonspecific repolarization (+1)] [- AGE: 65 and older (+2)] [- RISK FACTORS: 3 or more risk factors and/or known CAD (+2)] [-TROPONIN: <= normal limit (0)] - TOTAL SCORE: 6 - Risk Factors: DM, current or recent smoker, HTN, HLD, family hx of CAD, obesity - INTERPRETATION: With a total score of 3 or less, risk of major cardiac event within six weeks 1.7%, likely lower with two negative troponins. HPI This is a patient with a history of high blood pressure and high cholesterol presenting with chest pressure. The patient reports experiencing intermittent episodes of dizziness for an unspecified duration, characterized by a sensation of spinning upon waking. These episodes typically last for 4 to 5 days before subsiding, leaving him with a residual feeling of lightheadedness. He reports no recent falls or chest trauma and does not experience weakness in his extremities. He is not currently experiencing dizziness but continues to feel lightheaded. He also reports nausea during these dizzy spells but has not experienced any vomiting. The patient has been experiencing chest pressure for approximately a week. His chlorthalidone was discontinued due to low blood pressure, but it was later reintroduced at half the dose when his blood pressure began to rise. He describes sudden onset of chest pressure, even at rest, lasting between 10 to 15 minutes, sometimes shorter. The pressure is localized in the middle of his chest and does not radiate. He reports no history of diabetes or heart attack and has not had any stents placed in his heart. He has a family history of heart disease, with his father having had a heart attack at the age of 55. He reports no significant cough or fever but does report occasional mild coughing. He does not have any gastrointestinal issues but does experience some shortness of breath and leg swelling. He reports no recent unintentional weight gain, noting that his weight has remained relatively stable. Exam General: Well-appearing in no acute distress speaking in complete sentences. Head: Normocephalic, atraumatic. Eye:Extraocular eye movements intact. No conjunctival injection. No scleral icterus. Ear, nose, mouth, throat: Grossly normal inspection. Normal voice, handling secretions normally. Neck: Trachea midline. Cardiovascular: Well-perfused distal extremities. Regular rate and rhythm. Respiratory: Nonlabored respiration. Clear lungs bilaterally. Gastrointestinal: Nondistended abdomen. Soft abdomen Musculoskeletal: No no significant lower extremity pitting edema. Moving all 4 extremities spontaneously. Skin: Normal for age and race, grossly normal temperature and turgor. No acute rash. Neurologic: Alert and appropriate, no apparent acute deficits. Psychiatric: Mood and manner are appropriate. Grooming and personal hygiene are appropriate. Related Data Home Medications ?Medication ?Instructions ?Recorded ?Confirmed losartan 100 mg tablet 100 mg PO DAILY #90 tab-caps 02/10/24 11/16/24 amlodipine 5 mg tablet See Rx Instructions .Route 1 07/11/23 11/16/24 .COMPLEX #90 tabs atorvastatin 20 mg tablet See Rx Instructions .Route 1 07/11/23 11/16/24 .COMPLEX #90 tabs chlorthalidone 25 mg tablet 12.5 mg PO DAILY 11/16/24 Previous Rx's ?Medication ?Instructions ?Recorded losartan 100 mg tablet 100 mg PO DAILY #90 tab-caps 02/10/24 amlodipine 5 mg tablet See Rx Instructions .Route 1 07/11/23 .COMPLEX #90 tabs atorvastatin 20 mg tablet See Rx Instructions .Route 1 07/11/23 .COMPLEX #90 tabs Allergies Allergy/AdvReac Type Severity Reaction Status Date / Time No Known Allergies Allergy Verified 11/16/24 10:37 PENDING SALE TO [facility] All Active Problems (Updated 11/16/24 @ 16:41 by Kenyon Caballero MD) Ventricular bigeminy (Acute) Chest pressure (Acute) Chest pressure (Acute) Ventricular bigeminy (Acute) Elevated liver enzymes (Acute) Heart murmur (Acute) Essential tremor (Acute) Status post total left knee replacement (Acute) Rupture of left quadriceps tendon (Acute) medial partial, distal Irregular heart beat (Acute) Bradycardia (Acute) Prediabetes (Acute) 10/2020- A1c- 5.7 Polyp of colon (Acute) Psoriasis (Chronic) 10/11/11 Morbid obesity (Chronic) Hypercholesterolemia (Chronic) Essential hypertension (Chronic) Medical History Laceration of right upper arm Encounter for screening colonoscopy Right ankle pain Tubular adenoma of colon (~10/2023) Painful total knee replacement, left Strain of left quadriceps Entrapment of left ulnar nerve Urinary retention due to benign prostatic hyperplasia BPH w urinary obs/LUTS (10/24/17) Obesity HTN (hypertension) Surgical History S/P TURP H/O total knee replacement 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 Brother No problems noted. Son No problems noted. Son No problems noted. Step daughter No problems noted. Family History Essential hypertension Hyperlipidemia Social History Smoking/Tobacco Use Status: Never Second Hand Exposure: Yes Smoking risk assessment performed?: Yes Alcohol Intake: current Alcohol Intake frequency: a few times a week Alcohol type: hard liquor Drug use: Never Substance use type: does not use Caregiver/Support person: No Household members: spouse Housing: house Communication Needs: Corrective Lenses Do you need help understanding health information?: Never Pets and animals: No Sexually active: Yes Do you think of yourself as: straight/heterosexual Current gender identity: male What is your relationship status?: How often do you talk on the phone with friends or family?: twice per week How often do you get together with friends or relatives?: twice per week How often do you attend baptist or episcopal services?: 1-3 times per year Do you belong to any clubs or organized social groups?: yes Panel score (0-1 are the most socially isolated patients): 3 What type of physical activity do you participate in: walking Duration: 15-30 minutes/day Frequency: 5-6 times per week Kalyani/Quaker: Baptism Special kalyani needs: No Seatbelt use: always Drive intox or ride w/intox pile driver engineer: No Do you feel safe at home: Yes Do you feel safe in your relationship?: Yes
[2024-11-16] MEDS: Aspirin 81 MG CHEW 324 MG CH (12:29)
[2024-11-16] MEDS: Normal Saline 500 ML IV (12:29)
[2024-11-16 12:33] LABS: Abs Immature Grans 0.01 10^3/uL (0.0-0.06); Absolute Basophil Count 0.03 10^3/uL (0.0-0.2); Absolute Eosinophil Count 0.25 10^3/uL (0.0-0.7); Absolute Lymphocyte Count 2.87 10^3/uL (1.2-3.4); Absolute Monocyte Count 0.71 10^3/uL (0.1-0.8); Basophils % 0.3 %; Eosinophils % 2.7 %; HCT 48.4 % (40.0-50.0); HGB 16.4 g/dL (13.5-17.5); Immature Grans % 0.1 %; MCH 32.2 pg (27.0-33.0); MCHC 33.9 % (32.0-36.0); MCV 95 fL (80-95); MPV 10.1 fL (8.0-11.0); Monocytes % 7.7 %; Neutrophils % 58.2 %; Platelet Count 200 10^3/uL (130-400); RBC 5.09 10^6/uL (4.36-5.78); RDW 12.2 % (11.8-14.1); RDW-SD 42.8 fL; WBC 9.27 10^3/uL (4.4-10.8)
--- NOTE | 2024-11-16 12:44 | DI.RAD_ITS ---
Exam(s) XR PORTABLE CHEST AP EXAM: XR PORTABLE CHEST AP CLINICAL HISTORY: Chest pain TECHNIQUE: 2D digital imaging was performed. COMPARISON: CR XR PORTABLE CHEST AP from 11/01/2020 FINDINGS: LUNGS: Elevated right diaphragm. No evidence of infiltrate or pulmonary edema. No pleural abnormality seen. HEART: Normal size. AORTA: Normal diameter. BONES: Unremarkable for age. Soft tissues: Unremarkable. IMPRESSION: No acute findings. DATA REPOSITORY: RADIATION DOSE DELIVERED:
[2024-11-16 12:51] LABS: ALT 42 U/L (16-63); AST 22 U/L (15-37); Albumin 3.7 g/dL (3.4-5.0); Alkaline Phosphatase 132 U/L (46-116); Anion Gap 6.4 mmol/L (3-11); BUN 21 mg/dL (7-18); Bilirubin, Total 1.8 mg/dL (0.2-1.0); CO2 29.6 mmol/L (21.0-32.0); CREATININE 1.1 mg/dL (0.70-1.30); Calcium 9.2 mg/dL (8.5-10.1); Chloride 105 mmol/L (98-107); Estimated GFR 71.77 (mL/min/1.73m2); Glucose 97 mg/dL (74-106); Lipase 68 U/L (<78); Magnesium 1.9 mg/dL (1.8-2.4); Sodium 141 mmol/L (136-145); Total Protein 7.2 g/dL (6.4-8.2); Troponin I 19 ng/L (<or=76)
[2024-11-16 12:59] LABS: D-Dimer 1006 ng/mlFEU (<500)
--- NOTE | 2024-11-16 13:15 | DI.CT_ITS ---
Exam(s) CT CHEST PE CTA EXAM: CT CHEST PE CTA CLINICAL HISTORY: Chest pain concern for PE. TECHNIQUE: Imaging Protocol: Axial CT angiography was performed with multi- slice acquisition and multi-planar and/or 3D reconstructions. Lung Computer Aided Detection (CAD) was utilized. CONTRAST MATERIAL: Intravenous: Omnipaque 350 contrast volume:100 mL COMPARISON: CT PELVIC/LOWER ABD WITH CON(P) from 06/01/2009 CR XR PORTABLE CHEST AP from 11/16/2024 FINDINGS: Tracheobronchial tree: Patent where visualized. No bronchiectasis. Pulmonary parenchyma: No consolidation or dominant measurable mass. There is poor inspiration with areas of atelectasis in the lungs. There is elevation of the right hemidiaphragm with areas of scarring seen in the lung base on the right. Pulmonary Arteries: No evidence of filling defect to suggest pulmonary emboli. Mediastinum and Fatuma: No dominant adenopathy or fluid collection. The esophagus is unremarkable. Visualized thyroid gland: Unremarkable. Pleura: No effusion or pneumothorax. Heart: The heart is not dilated. Three vessel coronary artery calcification is present. There is calcification of the mitral annulus. No pericardial effusion. Aorta: Thoracic aorta non-dilated. Atherosclerotic calcification is present. The timing of the bolus was optimized for evaluation of the pulmonary arteries. Upper abdomen: Unremarkable. Soft tissues: Unremarkable. Bones: Within normal limits for the patient's age. IMPRESSION: 1. There is no evidence of a pulmonary embolism or thoracic aortic aneurysm. 2. Low lung volumes and areas of atelectasis are present. No focal consolidating infiltrates are seen. 3. Coronary artery calcification and atherosclerotic disease. RADIATION DOSE DELIVERED: 508.95mGy.cm Total DLP DATA REPOSITORY: All CT scans at this facility are submitted to the National Radiology Data Registry (NRDR) Dose Index Registry (DIR) with the [employer] (ACR). RADIATION OPTIMIZATION: All CT scans at this facility use at least one of these dose optimization techniques: automated exposure control; mA and/or kV adjustment per patient size (includes targeted exams where dose is matched to clinical indication); or iterative reconstruction.
[2024-11-16] MEDS: Omnipaque 350 MG/ML 100 ML BTL IJ (13:55)
[2024-11-16] MEDS: Normal Saline - Diluent 50 ML VIAL IJ (13:55)
[2024-11-16 14:23] LABS: Troponin I 21 ng/L (<or=76)
[2024-11-16] MEDS: nitroGLYcerin 0.4 MG TAB (14:51)
[2024-11-16 16:17] LABS: Troponin I 21 ng/L (<or=76)
[2024-11-16] MEDS: MAGNESIUM SULFATE 2 GM/50 ML BAG IVINF (16:38)
--- NOTE | 2024-11-16 17:17 | W.PM.HP.N ---
Date of service: 11/16/24 Time of Service: 17:17 Assessment and Plan Assessment and plan (1) Chest pressure: Status: Acute Assessment and plan: EKG and troponins not c/w ACS/acute CT, but with evolving EKG changes with ventricular ectopy. He does have risk factors. Case reviewed with Cardiology Krystin in ED. Recommended admit for observation, telemetry monitoring and echocardiogram and ETT. Patient aware this will be not be fully done until . Consider cardiology consult . (2) Ventricular bigeminy: Status: Acute Assessment and plan: A/w bradycardia. Present in September 2024 EKG, ectopy much more frequent than in 2020 holter. Getting echo for structural heart disease as above, last done a year ago. Per cardiology consider low dose metoprolol, hold off until echo/stress done. (3) HTN (hypertension): Assessment and plan: continue home medications (4) Elevated liver enzymes: Status: Acute Assessment and plan: Mild chronic elevation of bili and alk phos. AST/ALT high normal. Could consider evaluation for biliary sclerosis with ASMA as outpatient but this is not an acute issue and abnormalities are more mild than would typically see. Also at risk for MASLD. (5) Morbid obesity: Status: Chronic Assessment and plan: follow with PCP (6) DVT prophylaxis: Status: Acute Assessment and plan: enoxaparin, high dose with BMI >50 (7) Discharge planning issues: Status: Acute (8) Prediabetes: Status: Acute Assessment and plan: A1c normal September 2024 at 5.5% (9) Hypercholesterolemia: Status: Chronic Assessment and plan: LDL 99 in September 2024 on atorvastatin 20mg, continue this for now, but consider higher intensity dose at discharge even if stress test negative given artherosclerosis on CT chest. History of Present Illness History of Present Illness Chief Complaint: chest pressure Narrative: 69 yo M with HTN, preDM, BMI 56, who was sent to the ED by his PCP after experiencing chest discomfort for the past week associated with EKG changes. The discomfort is a pressure across the mid chest under the sternum, moderate. Lasts 10min-2 hours. Onset can be random and at rest, but seems to happen more when going up stairs or walking. Associated with shortness of breath and lightheadedness. No nausea, palpitations, or diaphoresis. No radiation. Hasn't noted anything helps, given NTG here and it didn't seem to help. He hasn't had this pain before. During the past week since this started, he has felt off, more lightheaded. No fever/chill. No cough/URI symptoms. He was seen on 10/20 feeling lightheaded after bending over after an episode of vertigo. His BP was lower than typical at ~110/60 and he was told to hold his chlorthalidone 25mg. He was seen back 10/22 and his dizziness was better. 11/16 he followed up with his PCP and had restarted the chlorthalidone at 12.5mg. His dizziness was still better but revealed recent chest pain Review of Systems All systems reviewed & are unremarkable except as noted in HPI and below PFSH All Active Problems Discharge planning issues (Acute) DVT prophylaxis (Acute) Ventricular bigeminy (Acute) Chest pressure (Acute) Chest pressure (Acute) Ventricular bigeminy (Acute) Elevated liver enzymes (Acute) Heart murmur (Acute) Essential tremor (Acute) Status post total left knee replacement (Acute) Rupture of left quadriceps tendon (Acute) medial partial, distal Irregular heart beat (Acute) Bradycardia (Acute) Prediabetes (Acute) 10/2020- A1c- 5.7 Polyp of colon (Acute) Psoriasis (Chronic) 10/11/11 Morbid obesity (Chronic) Hypercholesterolemia (Chronic) Essential hypertension (Chronic) Medical History Right ankle pain Tubular adenoma of colon (~10/2023) Encounter for screening colonoscopy Entrapment of left ulnar nerve Laceration of right upper arm Urinary retention due to benign prostatic hyperplasia Painful total knee replacement, left Strain of left quadriceps BPH w urinary obs/LUTS (10/24/17) Obesity HTN (hypertension) Surgical History S/P TURP H/O total knee replacement 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 Brother No problems noted. Son No problems noted. Son No problems noted. Step daughter No problems noted. Family History Essential hypertension Hyperlipidemia Social History Smoking/Tobacco Use Status: Never Second Hand Exposure: Yes Smoking risk assessment performed?: Yes Alcohol Intake: current Alcohol Intake frequency: a few times a week Alcohol type: hard liquor Drug use: Never Substance use type: does not use Caregiver/Support person: No Household members: spouse Housing: house Communication Needs: Corrective Lenses Do you need help understanding health information?: Never Pets and animals: No Sexually active: Yes Do you think of yourself as: straight/heterosexual Current gender identity: male What is your relationship status?: How often do you talk on the phone with friends or family?: twice per week How often do you get together with friends or relatives?: twice per week How often do you attend denominational or mu-ism services?: 1-3 times per year Do you belong to any clubs or organized social groups?: yes Panel score (0-1 are the most socially isolated patients): 3 What type of physical activity do you participate in: walking Duration: 15-30 minutes/day Frequency: 5-6 times per week Kalyani/Gnosticism: Presybeterian Special kalyani needs: No Seatbelt use: always Drive intox or ride w/intox transport driver: No Do you feel safe at home: Yes Do you feel safe in your relationship?: Yes Meds Allergies and Home Medications Allergies Allergy/AdvReac Type Severity Reaction Status Date / Time No Known Allergies Allergy Verified 11/16/24 10:37 Home Medications ?Medication ?Instructions ?Recorded ?Confirmed ?Type losartan 100 mg tablet 100 mg PO DAILY #90 tab-caps 02/10/24 11/16/24 Rx amlodipine 5 mg tablet See Rx Instructions .Route 05/10/24 11/16/24 Rx .COMPLEX #90 tabs atorvastatin 20 mg tablet See Rx Instructions .Route 05/10/24 11/16/24 Rx .COMPLEX #90 tabs chlorthalidone 25 mg tablet 12.5 mg PO DAILY 11/16/24 History Exam Narrative Exam Narrative: GEN: Alert and oriented x 4, pleasant and cooperative, gives linear history. No acute distress at rest. HEENT: Head atraumatic. Conjunctiva clear, no icterus. PEERL, EOMI. no nystagmus. no rhinorrhea. MMM, OP benign. Neck is supple with no masses or lymphadenopathy, trachea midline LUNGS: CTAB with normal effort CV: RRR with no murmurs, gallops, or rubs. ABD: active bowel sounds, soft, nontender and nondistended. No masses. EXT: no cyanosis, clubbing. 1+ edema shaquille ankles, no calf tenderness MSK: No joint redness or swelling. Chest wall not tender NEURO: CN 2-12 grossly intact. Normal movement of 4 extremities. Normal speech and coordination. No tremor SKIN: No rashes or open wounds, few scabs on forearms, dry elbow, no clear psoriasis PSYCH: normal mood and affect Results Imaging CT scan - chest: report reviewed (1. There is no evidence of a pulmonary embolism or thoracic aortic aneurysm. 2. Low lung volumes and areas of atelectasis are present. No focal consolidating infiltrates are seen. 3. Coronary artery calcification and atherosclerotic disease. ) Labs 11/16/24 12:25 11/16/24 12:25 Labs: Laboratory Results - last 24 hr 11/16/24 11/16/24 11/16/24 12: 13:15 15:50 WBC 9.27 RBC 5.09 Hgb 16.4 Hct 48.4 MCV 95 MCH 32.2 MCHC 33.9 RDW 12.2 Plt Count 200 MPV 10.1 Immature Gran % 0.1 Neutrophils % 58.2 Lymphocytes % 31.0 Monocytes % 7.7 Eosinophils % 2.7 Basophils % 0.3 Nucleated RBC % 0.0 Absolute Neutrophils 5.40 Absolute Lymphocytes 2.87 Absolute Monocytes 0.71 Absolute Eosinophils 0.25 Absolute Basophils 0.03 D-Dimer 1006 H Sodium 141 Potassium 4.0 Chloride 105 Carbon Dioxide 29.6 Anion Gap 6.4 BUN 21 H Creatinine 1.1 Est GFR (CKD-EPI 2020) 71.77 Glucose 97 Calcium 9.2 Magnesium 1.9 Total Bilirubin 1.8 H AST 22 ALT 42 Alkaline Phosphatase 132 H Troponin I 19 21 21 Total Protein 7.2 Albumin 3.7 Lipase 68 Last Vital Signs Temp 37.1 C 11/16/24 12:22 Pulse 69 11/16/24 16:31 Resp 24 11/16/24 16:31 BP 151/58 H 11/16/24 16:31 Pulse Ox 95 11/16/24 16:31 PAWSS Have you Been Recently Intoxicated or Drunk Within the Last 30 days?: No Have you Ever Experienced Previous Episodes of Alcohol Withdrawal?: No Have you ever Experienced Withdrawal Seizures?: No Have you ever Experienced Delirium Tremens(DT)s?: No Have you ever undergone Alcohol Rehabilitation Treatment (i.e, inpt ot outpatient treatment programs)?: No Have you ever Experienced Blackouts?: No Have you ever Combined Alcohol with other Downers within the last 90 days?: No Have you ever Combined Alcohol with any other Substance of Abuse during the last 90 days?: No Result: 0 Time Spent Time spent with Patient: 55-74 minutes Time was spent: preparing to see the patient(eg.review tests), obtaining and/or reviewing separately otained hiistory, ordering medications,tests, procedures, referring, communicating with other health customer care specialist, indepentently interpreting results, counseling the patient and care coordination
--- NOTE | 2024-11-16 17:45 | W.PC.ACHO ---
Registration Status: REG ER Primary Language: Preferred Language: Lao ED Information & Data Chief Complaint Chest Pain 11/16/24 12:32 Chief Complaint Chest Pain 11/16/24 12:22 Triage Note chest pressure ~ 3 days, SOB 11/16/24 12:[address] office who reported low HR and irregular beats Medical / Surgical History (Last Reviewed 11/16/24 @ 14:46 by Ronn Fang NP) Right ankle pain Encounter for screening colonoscopy Laceration of right upper arm Tubular adenoma of colon (~10/2023) Entrapment of left ulnar nerve Urinary retention due to benign prostatic hyperplasia Painful total knee replacement, left Strain of left quadriceps BPH w urinary obs/LUTS (10/24/17) Obesity HTN (hypertension) (Last Reviewed 11/16/24 @ 14:46 by Ronn Fang NP) S/P TURP H/O total knee replacement Left knee DJD Repair of umbilical hernia Excision, Lipoma (07/12/09) Colonoscopy - MAC (10/2023) Cholecystectomy (08/28/07) Most Recent Vital Signs Temperature 37.1 C 11/16/24 12:22 Pulse 69 11/16/24 16:31 Pulse 66 11/16/24 16:31 Respiratory Rate 24 11/16/24 16:31 Respiratory Effort Normal, Non-Labored 11/16/24 12:33 Respiratory Depth Normal 11/16/24 12:33 Respiratory Pattern Normal 11/16/24 12:33 Blood Pressure 151/58 H 11/16/24 16:31 Blood Pressure Mean 78 11/16/24 16:31 Pulse Oximetry 95 11/16/24 16:31 Pain Level 0 11/16/24 12:22 Allergies No Known Allergies Allergy (Verified 11/16/24 10:37) Precautions Isolation Standard precaution 11/16/24 12:32 Active Medications Generic Name Dose Route Start Last Admin Trade Name Freq PRN Reason Stop Dose Admin Magnesium Sulfate 2 gm in 50 mls @ 25 mls/hr 11/16/24 15:58 11/16/24 16:38 IVINF 11/16/24 17:57 25 mls/hr NOW ONE Administration Iohexol 100 ml 11/16/24 14:00 11/16/24 13:55 Omnipaque 350 Mg/Ml 100 Ml Btl IJ 12/16/24 23:59 100 ml DIRECTED ESAU Administration Sodium Chloride 50 ml 11/16/24 14:00 11/16/24 13:55 Normal Saline - Diluent 50 Ml Vial IJ 50 ml .FOR DI USE ESAU Administration IV IV Catheter Type [Right Saline Lock Antecubital] IV Catheter Gauge [Right 20 Antecubital] Diet Orders Category Date Time Status Heart Healthy Eating [DIET] Nutrition 11/16/24 Dinner Active Diagnostics 11/16/24 11/16/24 11/16/24 Range/Units 15:50 13:15 12:25 WBC 9.27 (4.4-10.8) 10^3/uL RBC 5.09 (4.36-5.78) 10^6/uL Hgb 16.4 (13.5-17.5) g/dL Hct 48.4 (40.0-50.0) % MCV 95 (80-95) fL MCH 32.2 (27.0-33.0) pg MCHC 33.9 (32.0-36.0) % RDW 12.2 (11.8-14.1) % Plt Count 200 (130-400) 10^3/uL MPV 10.1 (8.0-11.0) fL Immature Gran % 0.1 % Neutrophils % 58.2 % Lymphocytes % 31.0 % Monocytes % 7.7 % Eosinophils % 2.7 % Basophils % 0.3 % Nucleated RBC % 0.0 (0.0-0.3) % Absolute Neutrophils 5.40 (1.2-6.7) 10^3/uL Absolute Lymphocytes 2.87 (1.2-3.4) 10^3/uL Absolute Monocytes 0.71 (0.1-0.8) 10^3/uL Absolute Eosinophils 0.25 (0.0-0.7) 10^3/uL Absolute Basophils 0.03 (0.0-0.2) 10^3/uL D-Dimer 1006 H (<500) ng/mlFEU Sodium 141 (136-145) mmol/L Potassium 4.0 (3.5-5.1) mmol/L Chloride 105 (98-107) mmol/L Carbon Dioxide 29.6 (21.0-32.0) mmol/L Anion Gap 6.4 (3-11) mmol/L BUN 21 H (7-18) mg/dL Creatinine 1.1 (0.70-1.30) mg/dL Est GFR (CKD-EPI 2020) 71.77 (mL/min/1.73m2) Glucose 97 (74-106) mg/dL Calcium 9.2 (8.5-10.1) mg/dL Magnesium 1.9 (1.8-2.4) mg/dL Total Bilirubin 1.8 H (0.2-1.0) mg/dL AST 22 (15-37) U/L ALT 42 (16-63) U/L Alkaline Phosphatase 132 H (46-116) U/L Troponin I 21 21 19 (<or=76) ng/L Total Protein 7.2 (6.4-8.2) g/dL Albumin 3.7 (3.4-5.0) g/dL Lipase 68 (<78) U/L Intake and Output - 24 Hour Total 11/16/24 12:17 thru 11/16/24 13:29 Intake Total 510 Balance 510 Weight 162.84 kg Intake: IV 510 Falls Risk Assessment History of Falls Previous History 11/16/24 12:31 Fall Total Score 15 11/16/24 12:31 Level of Risk Standard/Low Risk 11/16/24 12:31 Problems (Last Reviewed 11/16/24 @ 14:46 by Ronn Fang NP) Ventricular bigeminy (Acute) Chest pressure (Acute) v v v v v v v v v Sending and/or Receiving Nurses: Please use comment section below to note any information pertinent to the patient hand-off not included above. Information / Comments: Report received from:carmel
[2024-11-16] MEDS: Acetaminophen 325 MG TAB PO (21:12)
[2024-11-16] MEDS: Normal Saline Flush 10 ML SYR IVP (21:13)
[2024-11-16] MEDS: Enoxaparin 60 MG/0.6 ML SYR SC (21:13)
[2024-11-17 03:33] VITALS: BP 116/60; PULSE 69; RESP 18; TEMP 36.4; O2SAT 91
[2024-11-17 08:10] VITALS: BP 160/93; PULSE 64; RESP 16; TEMP 36.2; O2SAT 95
[2024-11-17] MEDS: Chlorthalidone 25 MG TAB 12.5 MG PO (08:55)
[2024-11-17] MEDS: Enoxaparin 60 MG/0.6 ML SYR SC ×2 (08:55→19:56)
[2024-11-17] MEDS: Losartan 50 MG TAB 100 MG PO (08:55)
[2024-11-17] MEDS: Atorvastatin 20 MG TAB PO (08:56)
[2024-11-17] MEDS: amLODIPine 5 MG TAB PO (08:56)
[2024-11-17] MEDS: Normal Saline Flush 10 ML SYR IVP ×2 (08:56→19:56)
--- NOTE | 2024-11-17 10:11 | INITIAL_ITS ---
Date of service: 11/17/24 Time of Service: 10:11 Care Management Initial Assmt Initial Assessment Reason for Hospitalization: Chest pressure Functional Status/Living Situation Patient Presentation: Frederic was sitting up in a chair visiting with his Dania and son Misha when CM visited. He was pleasant and agreeable to conversation. Ana María live in a single family home in [place]. They have 3 children, 2 sons and a daughter. One son lives locally, one lives in [place] and the third lives in [place]. 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 Frederic is independnet at baseline and does not receive any community services. Town of Residence: [place] Resides with: Spouse ( Dania) Significant Other/Family: Local Employment Status: Retired Instrumental Activities of Daily Living (ADLs): Independent Medications Medication Management: No Issues/Barriers identified Physical Functioning/Mobility Assistive Device: none Advance Directives Advance Directives: Do you have an Advance Directive: Y , 09:01 AD On File at [facility]: Y 11/17/23, 09:01 Date Asked 11/11/23 11/17/23, 09:01 AD Date Reviewed 09/24/24 09/24/24, 10:21 COLST On File at [facility] COLST Date Scanned Code Status Resuscitation Status Full Code Insurance Coverage/Financial Issues Insurance: Medicare Hum[employer] supplement Care Team Visit Care Team Role Provider Type Ronn Fang NP Primary Care Provider NURSE PRACTITIONER Kenyon Caballero MD Emergency Provider [facility] STAFF PHYSICIAN Kenyon Dillard Admit Provider [facility] STAFF PHYSICIAN Attending Provider Discharge Potential Discharge Needs: PCP F/U Appt Anticipated Barriers to Discharge: None Identified Patient/Family Education Needs: Review discharge instructions, discuss Ask Me Three Transportation: Private vehicle Plan: Anticipate Remy will be discharged home with no new services. He will follow up with his PCP and plan of care and transport with family. CM will follow and continue to support dischasrge planning. Social Determinants of Health Screening Social Determinants of health last assessed in clinic: 11/17/24 Will the Patient Participate in the Screening?: Yes Do you worry about having a steady place to live?: no Problems where you live: no known problems In the past 12 months, have you had to go without electric, gas, oil or water in your home?: no 1. Within the past 12 months, we worried whether our food would run out before we got money to buy more.: Never true 2. Within the past 12 months, the food we bought just didn't last and we didn't have money to get more.: Never true Has lack of transportation kept you from medical appointments or from doing things needed for daily living?: no Has anyone in your life made you feel unsafe or unsupported?: no How hard is it for you to pay for the very basics like food, housing, medical care, and heating? Would you say it is:: Not hard at all Do you want help finding or keeping work or a job?: I do not need or want help If for any reason you need help with day-to-day activities such as bathing, preparing meals, shopping, managing finances, etc., do you get the help you need?: I don?t need any help How often do you feel lonely or isolated from those around you?: Never Do you speak a language other than Yakut at home?: No PFSH All Active Problems Discharge planning issues (Acute) DVT prophylaxis (Acute) Ventricular bigeminy (Acute) Chest pressure (Acute) Chest pressure (Acute) Ventricular bigeminy (Acute) Elevated liver enzymes (Acute) Heart murmur (Acute) Essential tremor (Acute) Status post total left knee replacement (Acute) Rupture of left quadriceps tendon (Acute) medial partial, distal Irregular heart beat (Acute) Bradycardia (Acute) Prediabetes (Acute) 10/2020- A1c- 5.7 Polyp of colon (Acute) Psoriasis (Chronic) 10/11/11 Morbid obesity (Chronic) Hypercholesterolemia (Chronic) Essential hypertension (Chronic) Medical History Right ankle pain Tubular adenoma of colon (~10/2023) Encounter for screening colonoscopy Entrapment of left ulnar nerve Laceration of right upper arm Urinary retention due to benign prostatic hyperplasia Painful total knee replacement, left Strain of left quadriceps BPH w urinary obs/LUTS (10/24/17) Obesity HTN (hypertension) Surgical History S/P TURP H/O total knee replacement 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 Brother No problems noted. Son No problems noted. Son No problems noted. Step daughter No problems noted. Family History Essential hypertension Hyperlipidemia Social History Smoking/Tobacco Use Status: Never Second Hand Exposure: Yes Smoking risk assessment performed?: Yes Alcohol Intake: current Alcohol Intake frequency: a few times a week Alcohol type: hard liquor Drug use: Never Substance use type: does not use Caregiver/Support person: No Household members: spouse Housing: house Communication Needs: Corrective Lenses Do you need help understanding health information?: Never Pets and animals: No Sexually active: Yes Do you think of yourself as: straight/heterosexual Current gender identity: male What is your relationship status?: How often do you talk on the phone with friends or family?: twice per week How often do you get together with friends or relatives?: twice per week How often do you attend yazidi or religion services?: 1-3 times per year Do you belong to any clubs or organized social groups?: yes Panel score (0-1 are the most socially isolated patients): 3 What type of physical activity do you participate in: walking Duration: 15-30 minutes/day Frequency: 5-6 times per week Kalyani/Methodist: Zoroastrianism Special kalyani needs: No Seatbelt use: always Drive intox or ride w/intox catering truck driver: No Do you feel safe at home: Yes Do you feel safe in your relationship?: Yes
--- NOTE | 2024-11-17 13:22 | PHA.REVIEW2 ---
Pharmacy Admission Review Admission Clinical Review Admission Pharmacy Review: Discharge planning issues (Acute) DVT prophylaxis (Acute) Ventricular bigeminy (Acute) Chest pressure (Acute) Chest pressure (Acute) Ventricular bigeminy (Acute) Elevated liver enzymes (Acute) Prediabetes (Acute) No Known Allergies Allergy (Verified 11/16/24 10:37) Resuscitation Status Full Code Height 5 ft 7 in Weight 162 kg Comments Comments/Follow Ups: ECHO today, stress test tomorrow Pharmacy Admission Review Renal Dosing Renal Dosing: BUN 21 mg/dL (7-18) H 11/16/24 12:25 Creatinine 1.1 mg/dL (0.70-1.30) 11/16/24 12:25 Medications needing adjustments: Reviewed (CrCl 91 mL/min) List of meds needing interventions: Current medications are okay Anticoagulation Anticoagulation: Hgb 16.4 g/dL (13.5-17.5) 11/16/24 12:25 Hct 48.4 % (40.0-50.0) 11/16/24 12:25 Plt Count 200 10^3/uL (130-400) 11/16/24 12:25 Creatinine 1.1 mg/dL (0.70-1.30) 11/16/24 12:25 DVT Prophylaxis: Reviewed Medications: Enoxaparin (60mg BID - BMI > 50) Relevant Labs Relevant Labs: Sodium 141 mmol/L (136-145) 11/16/24 12:25 Potassium 4.0 mmol/L (3.5-5.1) 11/16/24 12:25 Chloride 105 mmol/L (98-107) 11/16/24 12:25 Magnesium 1.9 mg/dL (1.8-2.4) 11/16/24 12:25 Electrolytes, C-Reactive P, ESR: Reviewed (No new labs for today) Cardiac Review Cardiac Review: Troponin I 21 ng/L (<or=76) 11/16/24 15:50 BP, HR, EF%: Reviewed (BP 160/93, HR WNL) List meds needing interventions: Has orders for amlodipine 5mg daily, chlorthalidone 12.5mg daily and losartan 100mg daily QTc Review QTc: Reviewed (466 from 11/16/24) IV to PO Switch IV Medications: Reviewed Home Meds Home Med List reviewed: Reviewed Current Meds Current Medication Order Review: Intervened Comments: Changed IV ED access order Comments Comments/Follow Ups: ECHO today, stress test tomorrow
--- NOTE | 2024-11-17 18:15 | W.PM.PROGNOT ---
Date of Service Date of service: 11/17/24 Time of Service: 18:15 Assessment and Plan Assessment and plan (1) Chest pressure: Status: Acute Assessment and plan: EKG and troponins not c/w ACS/acute PR, but with evolving EKG changes with ventricular ectopy in this pateint with cardiac risk factors. Case reviewed with [facility] Krystin in ED. Recommended admit for observation, telemetry monitoring and echocardiogram and ETT. These are still pending. Both should be done . (2) Ventricular bigeminy: Status: Acute Assessment and plan: Present in September 2024 EKG, ectopy much more frequent than in 2020 holter. Symptomatic. Getting echo for structural heart disease at [facility] as above, last done a year ago. Per cardiology consider low dose metoprolol, hold off until echo/stress done. (3) HTN (hypertension): Assessment and plan: continue home medications (4) Elevated liver enzymes: Status: Acute Assessment and plan: Mild chronic elevation of bili and alk phos. AST/ALT high normal. Could consider evaluation for biliary sclerosis with ASMA as outpatient but this is not an acute issue and abnormalities are more mild than would typically see. Also at risk for MASLD. No change today (5) DVT prophylaxis: Status: Acute Assessment and plan: enoxaparin, high dose with BMI >50 (6) Hypercholesterolemia: Status: Chronic Assessment and plan: LDL 99 in September 2024 on atorvastatin 20mg, continue this for now, but consider higher intensity dose at discharge even if stress test negative given artherosclerosis on CT chest. (7) Discharge planning issues: Status: Acute Assessment and plan: Home after studies as above may need cardiology f/u Subjective Subjective Patient reports: no new complaints and tolerating a regular diet; denies diarrhea, nausea, vomiting, shortness of breath or fever Interval history since last seen: Events: None. He had some chest pain this morning, one 30 minute episode of chest pain, mild, was resting. Has walked since. No SOB with mild chest pain today. Exam Narrative Exam Narrative: GEN: Alert and oriented. No acute distress at rest. LUNGS: CTAB with normal effort CV: RRR with no murmurs, gallops, or rubs. ABD: active bowel sounds, soft, nontender and nondistended. No masses. EXT: no cyanosis, clubbing. 1+ edema shaquille ankles, no calf tenderness Objective Last Vital Signs Temp 36.2 C L 11/17/24 08:10 Pulse 64 11/17/24 08:10 Resp 16 11/17/24 08:10 BP 160/93 H 11/17/24 08:10 Pulse Ox 95 11/17/24 08:10 PAWSS Have you Been Recently Intoxicated or Drunk Within the Last 30 days?: No Have you Ever Experienced Previous Episodes of Alcohol Withdrawal?: No Have you ever Experienced Withdrawal Seizures?: No Have you ever Experienced Delirium Tremens(DT)s?: No Have you ever undergone Alcohol Rehabilitation Treatment (i.e, inpt ot outpatient treatment programs)?: No Have you ever Experienced Blackouts?: No Have you ever Combined Alcohol with other Downers within the last 90 days?: No Have you ever Combined Alcohol with any other Substance of Abuse during the last 90 days?: No Positive Blood Alcohol level on Presentation? [PCS.BAL]: No Evidence of Increased Autonomic Activity (i.e. HR>120, tremor, sweating, agitation, nausea)?: No Result: 0 Time Spent with Patient Time Spent with Patient: 25-34 minutes Time was spent: preparing to see the patient(eg.review tests), obtaining and/or reviewing separately otained hiistory, ordering medications,tests, procedures, referring, communicating with other health career development engineer, indepentently interpreting results, counseling the patient and care coordination
[2024-11-17 20:59] VITALS: BP 114/51; PULSE 77; RESP 20; TEMP 36.7; O2SAT 94
[2024-11-18 02:56] VITALS: BP 118/61; PULSE 72; RESP 18; TEMP 36.5; O2SAT 93
--- NOTE | 2024-11-18 07:00 | DI.NM_ITS ---
APPROVED REPORT Exam: Pharmacologic Patient Location: In-Patient Room/Bed: Stress Nurse: Miryam Moore, RN, Bertha Gage RN Ordering Provider:ODETTE SHARMA, Contact Number: BMI: 53.87 Baseline Rhythm: sinus, bigeminy Indications: chest pain, abnormal ekg with ventricular ectopy Medical History Medical History: HTN, elevated liver enzymes, morbid obesity, DVT prophylaxis, SOB, heart murmur, essential tremor, pre-diabetes Cardiac Medications: Amlodipine, atorvastatin, chlothalidone, losartan Allergies: NKA Cardiac Risk Factors: family hx, HTN, HLD, diabetes, obesity Previous Cardiac Procedures: none Pretest Chest Pain Characteristics: none Exercise History: Sedentary Lung Sounds: clear Heart Sounds: Regular Stress Test Details Test: Pharmacologic stress testing performed using 0.4 mg of regadenoson per 5 mL given IV over 10 seconds. Reason for pharmacologic stress test: physical limitation. Rest Isotope: Tc-99m Sestamibi. Dose: 15.0 Date: 11/18/2024 Injection Time: 1220 Stress Isotope: Tc-99m Sestamibi. Dose: 45.0 Date: 11/18/2024 Injection Time: 1415 HR Resting HR Supine: 72 bpm Max Heart Rate (APMHR): 149 bpm Target HR (85% APMHR): 127 bpm Max HR Achieved: 90 bpm % of APMHR: 60 Recovery HR: 87 bpm BP Resting BP Supine: 140/78 mmHg Max BP: 152/78 mmHg Recovery BP: 140/64 mmHg ECG Resting ECG: Sinus Rhythm, RBBB Ectopy: occasional PVCs, bigeminy, rare PACs Stress ECG: Sinus Rhythm, RBBB ST Change: Nondiagnostic low heart rate Arrhythmia: occasional PVCs, bigeminy, rare PACs Recovery ECG: Sinus Rhythm, RBBB Recovery ST Change: Nondiagnostic low heart rate Recovery Arrhythmia: occasional PVCs, bigeminy, rare PACs Clinical Stress Symptoms: none Angina Score: None Rate Pressure Product: [id number] Stress ECG Conclusion 1. Resting electrocardiogram showed right bundle branch block and left anterior fascicular block, low voltage 2. Patient underwent testing using pharmacologic stress with regadenoson 3. Peak heart rate achieved was 60% of maximal predicted for age 4. The electrocardiographic portion of the test was nondiagnostic 5. PVCs were noted 6. See MPI report Stress Test Summary STAGE HR BP SpO2 Symptoms NOTES Supine 72 140/78 1 min post Lexiscan injection 76 152/78 3 min post Lexiscan injection 83 132/58 6 min post Lexiscan injection 87 140/64 Unable to do treadmill test secondary to patient arriving in socks only. Lexiscan test done, patient tolerated it well, denying any symptoms or discomfort. Proceeded to image ambulatory in no distress. MPI Conclusion Myocardial perfusion is normal. There is no ischemia or evidence of prior infarction Ejection fraction is 50% with normal wall motion
[2024-11-18] MEDS: Chlorthalidone 25 MG TAB 12.5 MG PO (07:37)
[2024-11-18] MEDS: Atorvastatin 20 MG TAB PO (07:37)
[2024-11-18] MEDS: Enoxaparin 60 MG/0.6 ML SYR SC (07:37)
[2024-11-18] MEDS: amLODIPine 5 MG TAB PO (07:37)
[2024-11-18] MEDS: Losartan 50 MG TAB 100 MG PO (07:37)
[2024-11-18] MEDS: Normal Saline Flush 10 ML SYR IVP (07:38)
[2024-11-18 07:39] VITALS: BP 142/79; PULSE 70; RESP 16; TEMP 36.6; O2SAT 95
--- NOTE | 2024-11-18 11:00 | DI.US_ITS ---
APPROVED REPORT EXAM: Comprehensive 2D, Doppler, and color-flow Echocardiogram Patient Location: In-Patient Room/Bed: 229 Vocational Education Professional: Ana Tomas RDCS (AE) Indications: Chest pain, Venticular ectopy, murmur Other Information Study Quality: Fair. Technically limited study due to body habitus. Conclusion Mild concentric left ventricular hypertrophy. Ejection fraction is 50 to 55%. No segmental wall motion abnormalities are identified Normal right ventricular size. Right ventricle is mildly hypocontractile Both atria are normal in size Aortic valve is calcified. There is mild aortic stenosis with a mean gradient of 14 mmHg Mild mitral annular calcification Estimated right ventricular systolic pressure is 40 mmHg Wall motion Left Ventricle The left ventricle is normal size. The overall left ventricular systolic function appears normal. Mild concentric left ventricular hypertrophy. No segmental wall motion abnormalities There is no ventricular septal defect visualized. EF is 50 to 55% Right Ventricle Right ventricle is grossly normal in size. Right ventricle is mildly hypokinetic. Atria The left atrium size is normal. The right atrium size is normal. The interatrial septum is intact with no evidence for an atrial septal defect. Aortic Valve Aortic valve is calcified. Number of aortic valve leaflets could not be assessed. Mild aortic stenosis, mean gradient is 14 mmHg No aortic regurgitation is present. Mitral Valve Mild mitral annular calcification. No evidence of mitral valve stenosis. Trace mitral regurgitation. Tricuspid Valve The tricuspid valve is normal in structure. There is no tricuspid valve stenosis. Trace tricuspid regurgitation. The RVSP is 40 mmHg. Pulmonic Valve The pulmonary valve is normal in structure. There is no pulmonic valvular stenosis. Trace pulmonic regurgitation. Great Vessels The aortic root is normal in size. The ascending aorta is normal in size. Aortic arch is normal in caliber. The IVC collapses <50% with inspiration. Pericardium There is no pericardial effusion. 2D Dimensions IVSD d PLAX 1.30 cm M: 0.6-1.2 Ao Root d 3.74 cm M: 3.1 - 3.7 LVPW d PLAX 1.30 cm M: 0.6 - 1.2 Ao Asc Diam d 3.28 cm M: 2.6 - 3.4 LVID d PLAX 5.10 cm M: 4.2 - 5.8 LVDs 3.92 cm M: 2.5 - 4.0 LV EF Teichholz 45.1 % FS 22.54 % LV EDV (Teich) 121.5 mL LV ESV (Teich) 66.6 mL M-Mode TAPSE 2.42 cm (M/F) >1.7 LA Volume LA Length A4C 5.2 cm LA Length A2C 5.5 cm LA Area A4C s 19.10 cm2 LA Area A2C s 21.41 cm2 LA Vol A4C A-L 59.76 mL LA Vol A2C A-L 70.15 mL LA Vol Biplane A-L 67.0 mL LA Vol/BSA A4C A-L LA Vol/BSA A2C A-L LA Vol/BSA BP A-L 25.9 mL/m2 LA Vol A4C MOD 57.0 mL LA Vol A2C MOD 67.4 mL LA Vol BP MOD 64.0 mL RA Volume RA Area A4C 13.0 cm2 RA ESV A4C (A-L) 32.9mL RA Vol/BSA A4C A-L RA Length A4C 4.4 cm RA ESV A4C (MOD) 30.9mL LV Diastology MV E' medial 0.082 (>0.07 m/s) MV E Vmax 0.63 (0.4-1.3 m/s) MV E/E' MED 7.65 (<14) MV A Vmax 1.20 (0.4-1.3 m/s) MV E' lateral 0.092 (>0.1 m/s) E/A Ratio 0.5 MV E/E' LAT 6.83 (<14) MV E' Average 0.087 m/s MV E/E'(average) 7.22 Aortic Valve AoV Vmax 2.53 m/s LVOT Vmax 1.22 m/s AoV Peak Grad 25.6 mmHg LVOT Peak Grad 6.0 mmHg AoV Area (Vmax) 1.74 cm2 LVOT VTI 0.338 m AoV VTI 0.508 m LVOT Mean Grad 4.0 mmHg AoV Mean [place]. 1.78 m/s LVOT SV 121.62 mL AoV Mean Grad 14.5 mmHg LVOT Diam s 2.10 cm AoV Area (VTI) 2.39 cm2 AV Regurg Peak Gr. 25.63 mmHg Velocity Ratio 0.48 Mitral Valve MV DT 358 (160-240 msec) MV Vmax TIPS 1.25 m/s MV Mean Grad 1.3 (<2mmHg) MV VTI 0.410 m Pulmonary Valve PV Vmax 1.12 (0.5-1.5 m/s) RVOT Vmax 1.03 m/s PV Peak Grad 5.1 mmHg RVOT Peak Gr. 4.2 mmHg PV Mean [place] 0.77 m/s RVOT VTI 0.221 m PV Mean Grad 2.7 mmHg RVOT Mean Gr. 2.1 mmHg Tricuspid Valve RA Pressure 8.00 mmHg TR Vmax 2.83 m/s TV S' 0.13 m/s TR Peak Grad 31.9 mmHg RVSP (TR) 40.0 mmHg
--- NOTE | 2024-11-18 16:56 | CHAPLAIN ---
Frederic was having testing done when I stopped in his room. I visited with his , Dania. She has expected Frederic back more than an hour earlier, and was hoping he would be discharged today. I explained my role and offered support.
--- NOTE | 2024-11-18 17:08 | DSE_ITS ---
Date of service: 11/18/24 Time of Service: 17:08 DS: Diagnosis Discharge Diagnosis (1) Chest pressure: Status: Acute (2) Ventricular bigeminy: Status: Acute (3) HTN (hypertension): (4) Elevated liver enzymes: Status: Acute (5) DVT prophylaxis: Status: Acute (6) Hypercholesterolemia: Status: Chronic (7) Discharge planning issues: Status: Acute Discharge Plan Disposition Patient Disposition: Home Condition: Stable Discharge Details Reason For Visit: Chest pain, Ventricular ectopy Admit Date/Time: 11/16/24 16:59 Admit Provider: Kenyon Dillard Attending Provider: Kenyon Dillard Primary Care Provider: [place] [facility] Hospital Course: 69 yo M with HTN, preDM, BMI 56, who was sent to the ED by his PCP after experiencing chest discomfort for the past week with EKGs showing bigeminy with frequent PVCs. There was no ischemic changes and troponins were negative. CTA was negative for PE or other findings, but did show significant arterial calcifications. The case was reviewed with [facility] cardiology Dr. Mcclelland in the ED who recommened observation with cardiac monitoring, echocardiography, and MPI. He had intermittent mild symptoms of chest pressure and intermittent bigeminy on telemetry, but it wasn't totally clear if these correlated. His echocardiogram was reassuring with read copied below. His stress test likewise did not show ischemia. Dr. Mcclelland suggested trial of metoprolol after ETT, and he was started on 25mg metoprolol succinate. Given calcifications on CT and recent lipid panel showing LDL 99, his atorvastatin was doubled to 40mg to see if he could get his LDL down to 70 and improve his cardiac risk. Cardiology consult was recommended at [facility]. We did discuss the idea of EP evaluation if metoprolol not controlling symptomatic frequent PVCs. PCP follow up: Follow heart rate and BP and symptoms on metoprolol Refer to cardiology if you agree repeat lipid panel in 6 weeks Follow up blood pressure and other risk factors Mild concentric left ventricular hypertrophy. Ejection fraction is 50 to 55%. No segmental wall motion abnormalities are identified Normal right ventricular size. Right ventricle is mildly hypocontractile Both atria are normal in size Aortic valve is calcified. There is mild aortic stenosis with a mean gradient of 14 mmHg Mild mitral annular calcification Estimated right ventricular systolic pressure is 40 mmHg Home Meds and New Rx's Prescriptions: New metoprolol succinate 25 mg tablet extended release 24 hr 25 mg PO DAILY Qty: 30 0RF atorvastatin [Lipitor] 40 mg tablet 40 mg PO QHS Qty: 90 3RF Rx Instructions: increase dose Continued chlorthalidone 25 mg tablet 12.5 mg PO DAILY losartan 100 mg tablet 100 mg PO DAILY Qty: 90 3RF amlodipine 5 mg tablet See Rx Instructions .ROUTE .COMPLEX Qty: 90 3RF Dose Instruction: TAKE 1 TABLET DAILY Rx Instructions: TAKE 1 TABLET DAILY Discontinued atorvastatin 20 mg tablet See Rx Instructions .ROUTE .COMPLEX Qty: 90 3RF Dose Instruction: TAKE 1 TABLET EVERY EVENING Rx Instructions: TAKE 1 TABLET EVERY EVENING Discharge Instructions Instructions: Ventricular premature beats Additional Instructions: you have frequent premature ventricular beats, often every other beats. You may be feeling this. Start on the metoprolol when you get this to see if it helps. Stop if you feel dizzy or otherwise bad. You can take two of your atorvastatin tablets daily for now. We sent 40mg tablets to your mail order pharmacy. Coordinate the cardiology referral with your PCP. Referrals: Ronn Gibson NP [Primary Care Provider, Medicine] Referral Note: The office has your information and will be calling you to set up a hospital follow up within 7-10 day. Rosalba Paris MD [ [facility] STAFF PHYSICIAN, Cardiology] Referral Note: 69 yo M with frequent PVCs/bigeminy a/w chest pressure. Had MPI and echo at recent admission Activity:: Activity as Tolerated Equipment/Supplies:: No Equipment Needed Diet:: As Tolerated Discharge Orders Discharge Orders: Discharge Order (Routine); Ordered 11/18/24 Ordered By: Kenyon Dillard DS: Summary Time Spent with Patient providing and/or coordinating discharge services: Greater than 30 minutes Status at Discharge Functional status at discharge: independent ambulation Overall status at discharge: patient is back to baseline Mental Status: mental status grossly normal Speech and Movement: speech and movement normal Mood: congruent mood Affect: normal affect Exam Narrative Exam Narrative: GEN: Alert and oriented. No acute distress at rest. LUNGS: CTAB with normal effort CV: RRR with no murmurs, gallops, or rubs. ABD: active bowel sounds, soft, nontender and nondistended. No masses. EXT: no cyanosis, clubbing. 1+ edema shaquille ankles, no calf tenderness Psych Mental Status: mental status grossly normal Speech and Movement: speech and movement normal Mood: congruent mood Affect: normal affect DS: Data Vitals/I&O Vitals and I&O: Vital Signs Temperature 36.6 C 11/18/24 07:39 Temperature Source Temporal Artery Scan 11/18/24 07:39 Pulse 70 11/18/24 07:39 Pulse Rhythm Regular 11/16/24 18:05 Pulse 66 11/16/24 16:31 Respiratory Rate 16 11/18/24 07:39 Respiratory Effort Normal 11/16/24 18:05 Respiratory Depth Normal 11/16/24 18:05 Respiratory Pattern Normal 11/16/24 18:05 Blood Pressure 142/79 H 11/18/24 07:39 Blood Pressure Mean 100 11/18/24 07:39 Pulse Oximetry 95 11/18/24 07:39 Oxygen Delivery Method Room Air 11/18/24 07:39 Oxygen Flow Rate 0 11/18/24 07:39 Pain Level 0 11/17/24 20:59 Intake & Output 11/17/24 11/18/24 11/18/24 23:59 11:59 23:59 Intake Total 570 / 570 Balance 570 / 570 Weight 156.3 kg Intake: IV Oral 560 / 560 Other: Comment pt voids independently, no issues reported at this time pt voids independently no issues reported pt voids independently Stool Size Moderate Stool Characteristics Formed Brown PFSH All Active Problems Discharge planning issues (Acute) DVT prophylaxis (Acute) Ventricular bigeminy (Acute) Chest pressure (Acute) Chest pressure (Acute) Ventricular bigeminy (Acute) Elevated liver enzymes (Acute) Heart murmur (Acute) Essential tremor (Acute) Status post total left knee replacement (Acute) Rupture of left quadriceps tendon (Acute) medial partial, distal Irregular heart beat (Acute) Bradycardia (Acute) Prediabetes (Acute) 10/2020- A1c- 5.7 Polyp of colon (Acute) Psoriasis (Chronic) 10/11/11 Morbid obesity (Chronic) Hypercholesterolemia (Chronic) Essential hypertension (Chronic) Medical History Right ankle pain Tubular adenoma of colon (~10/2023) Encounter for screening colonoscopy Entrapment of left ulnar nerve Laceration of right upper arm Urinary retention due to benign prostatic hyperplasia Painful total knee replacement, left Strain of left quadriceps BPH w urinary obs/LUTS (10/24/17) Obesity HTN (hypertension) Surgical History S/P TURP H/O total knee replacement 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 Brother No problems noted. Son No problems noted. Son No problems noted. Step daughter No problems noted. Family History Essential hypertension Hyperlipidemia Social History Smoking/Tobacco Use Status: Never Second Hand Exposure: Yes Smoking risk assessment performed?: Yes Alcohol Intake: current Alcohol Intake frequency: a few times a week Alcohol type: hard liquor Drug use: Never Substance use type: does not use Caregiver/Support person: No Household members: spouse Housing: house Communication Needs: Corrective Lenses Do you need help understanding health information?: Never Pets and animals: No Sexually active: Yes Do you think of yourself as: straight/heterosexual Current gender identity: male What is your relationship status?: How often do you talk on the phone with friends or family?: twice per week How often do you get together with friends or relatives?: twice per week How often do you attend oriental orthodox or quaker services?: 1-3 times per year Do you belong to any clubs or organized social groups?: yes Panel score (0-1 are the most socially isolated patients): 3 What type of physical activity do you participate in: walking Duration: 15-30 minutes/day Frequency: 5-6 times per week Kalyani/Mu-Ism: Restorationist Special kalyani needs: No Seatbelt use: always Drive intox or ride w/intox rickshaw driver: No Do you feel safe at home: Yes Do you feel safe in your relationship?: Yes Time Spent with Patient Time Spent with Patient: <45 minutes Time was spent: preparing to see the patient(eg.review tests), obtaining and/or reviewing separately otained hiistory, ordering medications,tests, procedures, referring, communicating with other health vocational childcare teacher, indepentently interpreting results, counseling the patient and care coordination
--- NOTE | 2024-11-18 18:32 | PDOC.CMDIS ---
Date of service: 11/18/24 Time of Service: 18:32 LACE Index Scoring Tool Questions: Length of Stay (in days): 2 Was the patient admitted via the E.D.?: Yes Comorbidities: Liver or Renal Disease E.D. Visits: 1 Answers: Total Score: 11 Risk of Readmission: High Risk Care Management Discharge Plan Reason for Hospitalization: chest pain Discharge Plan: Bill will be discharged home with no new services. He will follow up with cardiology, his PCP and plan of care and will transport with his . Patient/Family Education Needs: review of discharge instructions, limitations, follow up plan and discuss Ask Me Three
== END 2024-11-18 17:34 | disposition home or self-care (01) ==
LOC: ER 16:57 → MS 18:04
PROVIDERS: Admitting Provider Family Medicine; Emergency Provider Emergency Medicine; PCP Nurse Practitioner Family; Responsible Provider Family Medicine; Visit Provider Family Medicine
DX: R07.89 Other chest pain (principal); I49.3 Ventricular premature depolarization; I10 Essential (primary) hypertension; R73.03 Prediabetes; Z68.43 Body mass index [BMI] 50.0-59.9, adult; E78.00 Pure hypercholesterolemia, unspecified; R74.8 Abnormal levels of other serum enzymes; E66.01 Morbid (severe) obesity due to excess calories; G25.0 Essential tremor; R00.8 Other abnormalities of heart beat; R00.0 Tachycardia, unspecified; L40.9 Psoriasis, unspecified
CPT/HCPCS: 00123; 36415; 71275; 78452; 80053; 83690; 93005; 93016; 93018; 96361; 96365; 96366; 96372; 99285; 71045; 83735; 84484; 85025; 85379; 93010; 93017; 93306; 99222; 99232; 99239; G0378; J1650; J3475; J3490

== ENCOUNTER 2024-11-25 09:59 | Outpatient (CLI) | payer MEDICARE, OTHER, SELFPAY ==
--- NOTE | 2024-11-25 09:45 | RT.EKG_ITS ---
APPROVED REPORT Exam: Resting ECG Reason for Exam: bradycardia Patient Location: O HR:87 bpm ECG Measurements Heart Rate 87 AXIS [place] 160 P 5 QRSd 169 QRS -75 QT 431 T 4 QTc 519 Conclusion Sinus rhythm...normal P axis, V-rate 50- 99 Ventricular bigeminy...bigeminy string>4 w/ V complexes RBBB and LAFB...QRSd >120mS, axis(-40,240)
== END 2024-11-25 10:00 | disposition home or self-care (01) ==
LOC: DI.CM 10:01
PROVIDERS: PCP Nurse Practitioner Family; Visit Provider Nurse Practitioner Family
DX: R00.1 Bradycardia, unspecified (principal); I49.8 Other specified cardiac arrhythmias; I45.10 Unspecified right bundle-branch block
CPT/HCPCS: 93010